=== PATIENT | female | born 1950 | race Caucasian/White ===

== ENCOUNTER 2023-09-14 10:12 | Observation (INO) ==
--- NOTE | 2023-09-11 09:29 | Anesthesiology Consultation ---
Date of Service September 11, 2023 Assessment & Plan Chart Review Chart Review: Acceptable Risk for Surgery and Patient NOT seen in Pre Admission Testing History Surgery Operation Date: 09/14/23 11:40 Proposed Procedures p Robotic Assisted Sacrocolpopexy - Tramaine Day MD Height/Weight Height: 5 ft 8.5 in Weight: 83.007 kg Allergies Allergy/AdvReac Type Severity Reaction Status Date / Time latex Allergy Mild itchy Verified 09/05/23 15:32 nickel Allergy Mild rash, skin Verified 09/05/23 15:32 irritation levofloxacin AdvReac Mild Nausea Verified 09/05/23 15:32 Medications Home Medications Medication Instructions Recorded Confirmed Last Taken albuterol sulfate 2.5 mg/3 mL 2.5 mg inhalation Q6H PRN 09/05/23 09/05/23 Unknown (0.083 %) solution for nebulization Shortness Of Breath albuterol sulfate 90 mcg/actuation 2 puff inhalation Q6H PRN 09/05/23 09/05/23 Unknown aerosol inhaler Shortness Of Breath ascorbic acid (vitamin C) 500 mg 500 mg PO QAM 09/05/23 09/05/23 Unknown tablet (Vitamin C) azelastine 137 mcg (0.1 %) nasal 1 spray intranasal QAM 09/05/23 09/05/23 Unknown spray aerosol calcium carbonate 500 mg-vitamin 1 tab PO QAM 09/05/23 09/05/23 Unknown D3 5 mcg (200 unit) tablet (Calcium 500 + D) calcium polycarbophil 625 mg tablet 625 mg PO QAM 09/05/23 09/05/23 Unknown cetirizine 10 mg tablet 10 mg PO QAM 09/05/23 09/05/23 Unknown cholecalciferol (vitamin D3) 25 25 mcg PO QAM 09/05/23 09/05/23 Unknown mcg (1,000 unit) tablet (Vitamin D3) coenzyme Q10 100 mg capsule 100 mg PO QAM 09/05/23 09/05/23 Unknown (CoQ-10) estradiol 0.01% (0.1 mg/gram) 1 appful vaginal 2XWK 09/05/23 09/05/23 Unknown vaginal cream famotidine 20 mg tablet 20 mg PO BID 09/05/23 09/05/23 Unknown fluticasone 500 mcg-salmeterol 50 1 inh inhalation BID 09/05/23 09/05/23 Unknown mcg/dose blistr powdr for inhalation (Advair Diskus) fluticasone propionate 50 1 spray intranasal QAM 09/05/23 09/05/23 Unknown mcg/actuation nasal spray,suspension magnesium 250 mg tablet 250 mg PO QPM 09/05/23 09/05/23 Unknown montelukast 10 mg tablet 10 mg PO HS 09/05/23 09/05/23 Unknown multivitamin 1 tab PO QAM 09/05/23 09/05/23 Unknown omeprazole 20 mg tablet,delayed 20 mg PO QAM 09/05/23 09/05/23 Unknown release vitamin B complex 1 tab PO QAM 09/05/23 09/05/23 Unknown Past Medical History Medical History GERD (gastroesophageal reflux disease) History of endometriosis History of esophageal dilatation History of anemia Sarcoidosis Asthma mild--inhaler daily and prn, very rarely uses nebulizer Past Family History Family History Other No family history of adverse response to anesthesia Past Surgical History Surgical History History of tonsillectomy and adenoidectomy History of benign breast biopsy bilateral History of dilatation and curettage multiple History of shoulder surgery right--fracture repair History of repair of left rotator cuff History of repair of right rotator cuff History of partial knee replacement x2--one on right and one on left History of hysterectomy History of bladder suspension procedure History of colonoscopy History of esophagogastroduodenoscopy (EGD) History of wisdom tooth extraction History of sinus surgery History of bronchoscopy biopsy for sarcodosis Social History Smoking Status: Never smoker Do You Dip or Chew Tobacco: No Hx Alcohol Use: Yes Alcohol type: wine alcohol intake frequency: holidays/special occasions only Hx Substance Use: No substance use type: does not use
--- NOTE | 2023-09-13 07:38 | History & Physical Report ---
Date of Service September 14, 2023 Assessment & Plan (1) Vaginal vault prolapse, posthysterectomy: Plan Cystocele, Vaginal Vault Prolapse Patient desires surgical correction with robotic sacral colpopexy.. She is not interested in pessary therapy. We discussed the risks of surgery including infection, bleeding, injury, pain, mesh exposure, urinary retention, urinary incontinence, recurrence, bowel obstruction, and laparotomy conversion. All questions answered. Informed consent signed. Admission and Anticipated Discharge Date Admission Date: 09/14/2023 Anticipated date of discharge: 09/15/23 History of Present Illness Chief Complaint: prolapse Primary Care Provider: NO PCP Marta Mixon is a 73 year old female with vaginal prolapse. Marta notes that she has been having worsening of her symptoms of prolapse for t he past two years with associated urge urinary incontinence. She most recently had a colpopexy in 2015, and was told at that time that she would likely need another surgery sometime in the future. She recently had a rotator cuff repair for which she started opioid pain medication, which she thinks caused worsening constipation. She has since discontinued the medication, but her constipation has remained. She also had an anal fissure 6 months ago, which caused some hematochezia, but she was seen by her doctor for this concern and it has since resolved. In the past, she has had three surgical interventions: Colpopexy, vaginal intraperitoneal approach, October 2015 Mesh Suspension, robot, 2008 Bladder Sling Suspension, 2004 Urinary: Leakage: UUI Has leakage every day Wears pads: yes She denies a sense of incomplete bladder emptying. Prior/current treatment include: 3 x surgical interventions UTI: She states she has had two urinary tract infections in the past year. Prior/ current treatment include: antibiotics Voiding detail: Daytime frequency: every 30-60 minutes Urgency present Nocturia:4-6 times per night Hesitancy no Straining no Hematuria no (other than on urinalysis while having UTI) Postvoid dribbling no Postvoid urgency no Manual reduction no Drinks: 1 cup of green tea, 1 cup of decaf coffee Prolapse: She admits a palpable bulge. Her bulge symptoms have worsened over the last year Prior/ current treatments include 3 x surgical interventions GI: Bowel habits: constipation She denies fecal incontinence. Prior/ current treatments include: tapering and discontinuation of opioid pain medication after rotator cuff repair Allergies Allergy/AdvReac Type Severity Reaction Status Date / Time latex Allergy Mild itchy Verified 09/05/23 15:32 nickel Allergy Mild rash, skin Verified 09/05/23 15:32 irritation levofloxacin AdvReac Mild Nausea Verified 09/05/23 15:32 Home Medications Medication Instructions Recorded Confirmed Type albuterol sulfate 2.5 mg/3 mL 2.5 mg inhalation Q6H PRN 09/05/23 09/05/23 Hi story (0.083 %) solution for nebulization Shortness Of Breath albuterol sulfate 90 mcg/actuation 2 puff inhalation Q6H PRN 09/05/23 09/05/23 History aerosol inhaler Shortness Of Breath ascorbic acid (vitamin C) 500 mg 500 mg PO QAM 09/05/23 09/05/23 History tablet (Vitamin C) azelastine 137 mcg (0.1 %) nasal 1 spray intranasal QAM 09/05/23 09/05/23 History spray aerosol calcium carbonate 500 mg-vitamin 1 tab PO QAM 09/05/23 09/05/23 History D3 5 mcg (200 unit) tablet (Calcium 500 + D) calcium polycarbophil 625 mg tablet 625 mg PO QAM 09/05/23 09/05/23 History cetirizine 10 mg tablet 10 mg PO QAM 09/05/23 09/05/23 History cholecalciferol (vitamin D3) 25 25 mcg PO QAM 09/05/23 09/05/23 History mcg (1,000 unit) tablet (Vitamin D3) coenzyme Q10 100 mg capsule 100 mg PO QAM 09/05/23 09/05/23 History (CoQ-10) estradiol 0.01% (0.1 mg/gram) 1 appful vaginal 2XWK 09/05/23 09/05/23 History vaginal cream famotidine 20 mg tablet 20 mg PO BID 09/05/23 09/05/23 History fluticasone 500 mcg-salmeterol 50 1 inh inhalation BID 09/05/23 09/05/23 History mcg/dose blistr powdr for inhalation (Advair Diskus) fluticasone propionate 50 1 spray intranasal QAM 09/05/23 09/05/23 History mcg/actuation nasal spray,suspension magnesium 250 mg tablet 250 mg PO QPM 09/05/23 09/05/23 History montelukast 10 mg tablet 10 mg PO HS 09/05/23 09/05/23 History multivitamin 1 tab PO QAM 09/05/23 09/05/23 History omeprazole 20 mg tablet,delayed 20 mg PO QAM 09/05/23 09/05/23 History release vitamin B complex 1 tab PO QAM 09/05/23 09/05/23 History Patient History Medical History GERD (gastroesophageal reflux disease) History of endometriosis History of esophageal dilatation History of anemia Sarcoidosis Asthma mild--inhaler daily and prn, very rarely uses nebulizer Surgical History History of tonsillectomy and adenoidectomy History of benign breast biopsy bilateral History of dilatation and curettage multiple History of shoulder surgery right--fracture repair History of repair of left rotator cuff History of repair of right rotator cuff History of partial knee replacement x2--one on right and one on left History of hysterectomy History of bladder suspension procedure History of colonoscopy History of esophagogastroduodenoscopy (EGD) History of wisdom tooth extraction History of sinus surgery History of bronchoscopy biopsy for sarcodosis Family History Other No family history of adverse response to anesthesia Social History Smoking Status: Never smoker Second Hand Exposure: No; Do You Dip or Chew Tobacco: No; Tobacco Cessation Education Requested by Patient: No Hx Alcohol Use: Yes Alcohol type: wine Hx Substance Use: No Preferred Language: [place] Communication Ability: Effective Machine 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 Required: No Beliefs That Will Affect Care: None Current Living Situation: Spouse Other Information That Helps Us Care for You: No Feels Safe at Home: Yes Safety Concerns: Feels Safe At This Time Assistive Devices: None OB History Weight of largest baby: 8 lbs 15 oz Vaginal deliveries: 2 C/S: 0 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[employer] History endometriosis, hysterectomy Review of Systems All systems reviewed & are unremarkable except as noted in HPI & below Physical Exam Constitutional: WD/WN, vitals as above Eyes: PERRL, conjunctivae normal, anicteric sclerae ENMT: external ear and nose normal, oropharynx normal Neck: trachea midline, no thyromegaly Respiratory: normal respiratory effort, lungs clear to auscultation Cardiovascular: RRR, no murmur, no edema Gastrointestinal (Abdomen): normal bowel sounds, soft, nontender, no hepatosplenomegaly Musculoskeletal: no cyanosis or clubbing, extremities motor strength 5/5 Skin: no rashes, warm and dry Neurologic: PERRL, EOMI, accommodation nl, no face palsy, no dysarthria Psychiatric: A+Ox3, euthymic affect
--- NOTE | 2023-09-14 09:45 | History & Physical Bridge Note ---
Date of Service September 14, 2023 History & Physical Bridge Note I have examined the patient, reviewed the History & Physical and in the interval since the performance of the History & Physical I have noted the following changes of clinical significance: no changes noted
[~2023-09-14 10:12] MED LIST: LR 15ML/HR IV SCH; cefOXitin 2,000 MG in DEXTROSE 5 % MINI-B 50 ML IV SCH
[2023-09-14] MEDS ORDERED: fentaNYL citrate PF 100 MCG/2 ML VIAL ONE ×2 (10:52→13:56)
[2023-09-14] MEDS ORDERED: DEXAMETHASONE SOD INJ 4 MG/ML VIAL ONE (10:52)
[2023-09-14] MEDS ORDERED: PROPOFOL IV EMULSION 10 MG/ML 20 ML VIAL IV ONE (10:52)
[2023-09-14] MEDS ORDERED: MIDAZOLAM HCL 1 MG/ML 2ML VIAL ONE (10:52)
[2023-09-14] MEDS ORDERED: ONDANSETRON INJ 2 MG/ML 2 ML VIAL ONE (10:52)
[2023-09-14] MEDS ORDERED: LIDOCAINE 2% 2 ML VIAL/AMP(20MG/ML) INFIL ONE (10:52)
[2023-09-14] MEDS ORDERED: ROCURONIUM BROMIDE 10 MG/ML 5 ML VIAL IV ONE ×6 (10:54→12:42)
[2023-09-14] MEDS ORDERED: NALOXONE HCL 0.4 MG/1 ML VIAL/CARP IV PRN (12:10)
[2023-09-14] MEDS ORDERED: PROMETHAZINE HCL 12.5 MG in SODIUM CHLORIDE 0.9% 50 ML IV PRN (12:10)
[2023-09-14] MEDS ORDERED: HYDROmorphone INJ 1 MG/ML SYRINGE IV PRN (12:10)
[2023-09-14] MEDS ORDERED: LABETALOL HCL IV 5 MG/ML 20ML IV PRN (12:10)
[2023-09-14] MEDS ORDERED: FLUMAZENIL 0.1 MG/1 ML 10 ML VIAL IV PRN (12:10)
[2023-09-14] MEDS ORDERED: ATROPINE SULFATE 0.1 MG/ML 10ML SYR IV PRN (12:10)
[2023-09-14] MEDS ORDERED: ONDANSETRON INJ 2 MG/ML 2 ML VIAL IV PRN ×2 (12:10→15:43)
[2023-09-14] MEDS ORDERED: ePHEDrine sulfate 50 MG/ML AMP IV PRN (12:10)
[2023-09-14] MEDS ORDERED: BUPIVACAINE 0.5 % 5 MG/1 ML MPF 30ML VIAL ONE (12:58)
--- OUTSIDE RECORDS SUMMARY | 2023-09-14 15:16 | External Medical Summary | Summary of Care ---
Author Name Unknown Organization [facility] Address [address] [place] [address] Phone [phone] Care Team Providers Care Wire Drawing Machine Tender Name Role Phone Devyn Balbuena MD Primary Care Provider [phone] Reason for Visit * Reason Comments Follow Up 1 year for full skin exam Encounter Details Date Type Department Care Team (Late st Contact Info) Description 09/04/2023 3:40 PM EST Office Visit Dermatology[address] [address] Jory Lamar, JOSSELYN-Radha [address] [place] [address] [place] Stewart [address] Multiple nevi*; Skin exam, screening for cancer; Lentigines; Seborrheic keratosis Allergies Active Allergy Reactions Criticality Noted Date Comments Levofloxacin Nausea/vomiting Medium 10/16/2018 Molds & Smuts Other (Please comment) Medium 01/23/2019 Congestion and sore throat Poison Collin Extract 05/16/2023 documented as of this encounter (statuses as of 09/05/2023) Medications Medication Sig Dispensed Refills Start Date End Date Status B COMPLEX 100 PO TABS one daily 0 Active MAGNESIUM 250 MG PO TABS one daily 0 Active VITAMIN D3 1000 UNITS PO CAPS one daily 0 Active CALCIUM 1000 + D 1000-800 MG-UNIT PO TABS one tablet daily 0 Active FIBER COMPLETE PO TABS Take by mouth 1 Tablet daily . 0 Active Coenzyme Q10 10 MG Capsule Take 1 Capsule by mouth in the morning. 0 Active Ascorbic Acid (VITAMIN C) 500 MG chewable tablet Take 1 Tablet by mouth in the morning. 0 Active Multivitamin Women 50+ Oral Tablet Take by mouth . 0 Acti ve Cetirizine HCl 10 MG Oral Capsule Take by mouth 1 Capsule in the morning. 90 Capsule 2 06/29/2022 Active Fluticasone Propionate 50 MCG/ACT Nasal Suspension (Flonase)Indications :Seasonal allergies SPRAY 2 SPRAYS INTO EACH NOSTRIL EVERY DAY 48 mL 3 09/30/2022 Active Azelastine HCl 137 MCG/SPRAY Nasal Solution USE 1 SPRAY IN EACH NOSTRIL TWICE A DAY 0 09/03/2022 Active Albuterol Sulfate (2.5 MG/3ML) 0.083% Inhalation Nebulization Solution (Proventil)Indicatio ns:Mild persistent asthma without complication Inhale 1 Vial via nebulizer every 4 hours as needed for Wheezing. 100 mL 3 01/11/2023 Active Famotidine 20 MG Oral Tablet (Pepcid) TAKE 1 TABLET BY MOUTH TWICE A DAY 180 Tablet 1 01/22/2023 Active Advair Diskus 500-50 MCG/ACT Inhalation Aerosol Powder Breath Activated (Fluticasone-Salmete rol)Indications:Mild persistent asthma without complication INHALE BY MOUTH 1 PUFF IN THE MORNING AND 1 PUFF BEFORE BEDTIME. 180 Each 3 01/22/2023 Active Montelukast Sodium 10 MG Oral Tablet (Singulair)Indicatio ns:Mild persistent asthma, uncomplicated,Allerg ic rhinitis due to pollen TAKE 1 TABLET BY MOUTH EVERY DAY 90 Tablet 3 02/22/2023 Active Albuterol Sulfate HFA 108 (90 Base) MCG/ACT Inhalation Aerosol SolutionIndications: Mild persistent asthma without complication Inhale 2 Puffs by mouth every 6 hours as needed (as needed). 18 g 3 04/30/2023 Active Estradiol 0.1 MG/GM Vaginal Cream (Estrace) Apply pea sized amount (0.5 gm) vaginally twice a week at bedtime 42.5 g 3 05/23/2023 Active Omeprazole 20 MG Oral Capsule Delayed Release (PriLOSEC)Indication s:Dysphagia, unspecified type Take 1 Capsule by mouth in the morning. 1 hour before the first meal of the day. 90 Capsule 3 08/02/2023 Active predniSONE 20 MG Oral Tablet (Deltasone) TAKE 1 TABLET 2x DAILY FOR 5 DAYS, THEN TAKE 1 TABLET 1x DAILY FOR 5 DAYS. 15 Tablet 0 08/23/2023 Active documented as of this encounter (statuses as of 09/05/2023) Active Problems Problem Noted Date Diagnosed Date Chronic left shoulder pain 05/31/2022 Postoperative anemia due to acute blood loss Status post total bilateral knee replacement Seasonal allergic rhinitis due to pollen 018 Mild persistent asthma without complication 03/18 Gastroesophageal reflux disease without esophagi tis 10/05/2016 Uterovaginal prolapse 10/18/2015 DDD (degenerative disc disease), cervical 2014 Hyperlipidemia Sarcoid DJD (degenerative joint disease) of knee documented as of this encounter (statuses as of 09/05/2023) Resolved Problems Problem Noted Date Diagnosed Date Resolved Date ADVANCE DIRECTIVE INFORMATION 12/13/2017 10/06/2019 Overview: Pt does have a living will Encounter for examination fo r normal comparison and control in clinical research program 09/14/2017 04/19/2020 Overview: DO NOT DELETE [facility] DETECT Study: Project # [id number], Machine Binder Stripper: Jorden Cleaning, PhD. SUMMARY: Goal: Establish test characteristics (sensitivity, specificity, PPV, NPV) of a circulating tumor DNA (ctDNA)-based test for cancer. Hypothesis: Circulating tumor DNA (ctDNA) and elevated protein biomarkers (together, the marker panel) can be detected in asymptomatic individuals with early cancer. Specific Aim 1: Determine the prevalence of a positive marker panel test in a prospective clinical cohort of 10,000 asymptomatic women ages 65 to 75 years. Specific Aim 2: Determine the sensitivity, specificity, positive predictive value (PPV) and negative predictive value (NPV) of a marker panel test to identify histologically proven cancers that develop within 5-years of the marker panel evaluation. CONTACTS: During normal business hours, contact study staff at ; after hours Machine Binder Stripper via the [facility] hospital press setup operator . Please contact study team before resolving/deleting from patients problem list. Study phone number: [phone]. Diagnosis changed due to Research Module. Go to Snapshot for study details. Encounter for examination fo r normal comparison and control in clinical research program 09/14/2017 05/18/2022 Overview: DO NOT DELETE - Erick CHRISTIANSON Study: Project # [id number], Machine Binder Stripper: Armando Woodard, MS, MPH. SUMMARY: Goal: Establish test characteristics (sensitivity, specificity, PPV, NPV) of a circulating tumor DNA (ctDNA)-based test for cancer. - Hypothesis: Circulating tumor DNA (ctDNA) and elevated protein biomarkers (together, the marker panel) can be detected in asymptomatic individuals with early cancer. - Specific Aim 1: Determine the prevalence of a positive marker panel test in a prospective clinical cohort of 10,000 asymptomatic women ages 65 to 75 years. - Specific Aim 2: Determine the sensitivity, specificity, positive predictive value (PPV) and negative predictive value (NPV) of a marker panel test to identify histologically proven cancers that develop within 5-years of the marker panel evaluation. - CONTACTS: During normal business hours, contact study staff at ; after hours Machine Binder Stripper via the [facility] hospital press setup operator . - Please contact study team before resolving/deleting from patients problem list. Study phone number: [phone]. Diagnosis changed due to Research Module. Go to Snapshot for study details. Hypertension 04/09/2017 Pneumonia 07/25/2017 Hay fever 08/10/2018 Hx of food allergy 8 Leukocytosis 08/10/2018 Overview: work up negative Urinary, incontinence, stress female 02/10/2015 Asthma, mild persistent 03/18 documented as of this encounter (statuses as of 09/05/2023) Immunizations Name Administration Dates Next Due COVID-19 mRNA, LNP-s, No Pre serve, 2-Dose Series (Moderna) 11/18/2020,10/23/2020 COVID-19, mRNA, LNP-s, PF, B ooster, 100mcg/0.5mg (Moderna) 02/09/2022,08/08/2021 Covid-19, Mrna, Lnp-s, Pf, B ivalent, 30 Mcg, IM, 12 yrs and above (Pfizer) 07/28/2022 Influenza, Whole Virus 06/17/2013,02/04/2013 Pneumococcal Conjugate Vacc, 13 Valent (Prevnar) 07/08/2015 Pneumococcal Polysaccharide PPV23 (Pneumovax) 05/16/2018,02/04/2013 Season Influenza, Quad, PF, Adjuvanted, 65+ Yrs, IM (FLUAD) 05/27/2020 Seasonal Influenza, PF, 6 M & above, IM , (FluLaval or Fluzone) 06/17/2018,06/18/2017 Seasonal Influenza, Quadriva lent Hd (Fluzone Hd) 06/06/2023,07/10/2022,05/30/2021 Seasonal Influenza, Quadriva lent, No Preserve, IM 07/03/2015 Seasonal Influenza, Split, I IV3, With Preserve, Inj 07/01/2016,06/20/2014,06/17/2013 Seasonal Influenza, Trivalen t, Adjuvanted, 65+ yrs 05/22/2019 TDAP (age 10 and older)(Boostrix) 2020,02/20/2020(Deferred: Patient Refused) TDAP (age 11 and older)(Adacel) 04/04/2012 Varicella Zoster Vaccine (Adult) 04/24/2014 Zoster Vaccine Recombinant (Shingrix) 11/29/2019 ,2019 documented as of this encounter Social History Tobacco Use Types Packs/Day Years Used Date Smoking Tobacco: Never Smokeless Tobacco: Never Alcohol Use Standard Drinks/Week Comments Not Currently 0 (1 standard drink = 0.6 oz pur e alcohol) wine occ PHQ-2 Answer Date Recorded PHQ Adult Total Score 0 03/27/2022 Hunger Vital Sign Answer Date Recorded Within the past 12 months, y ou worried that your food would run out before you got the money to buy more. Never true 08/15/20 23 Within the past 12 months, t he food you bought just didn't last and you didn't have money to get more. Never true 08/15/2023 Sex and Gender Information Value Date Recorded Sex Assigned at Female 12/26/2018 11:49 AM EDT Gender Identity Female 12/26/2018 11:49 AM EDT Sexual Orientation Straight 03/27/2022 11 :19 AM EDT Job Start Date Occupation Industry Not on file Not on file Not on file documented as of this encounter Functional Status Functional Status Response Date of Assess ment Are you deaf or do you have serious difficulty hearing? No 03/03/2020 Are you blind or do you have serious difficulty seeing, even when wearing glasses? No 03/03/20 Do you have serious difficul ty walking or climbing stairs? (5 years old or older) Yes-prior to surgery 03/03/2020 Do you have difficulty dress ing or bathing? (5 years old or older) No 03/03/2020 Because of a physical, menta l, or emotional condition, do you have difficulty doing errands alone such as visiting a doctor s office or shopping? (15 years old or older) No 03/03/20 20 Cognitive Status Response Date of Assessm ent Because of a physical, menta l, or emotional condition, do you have serious difficulty concentrating, remembering, or making decisions? (5 years old or older) No 03/03/2020 documented as of this encounter Patient Instructions * Patient Instructions* Jory Lamar PA-C - 09/04/2023 4:04 PM EST SUNSCREEN USE AND SUN PROTECTION: 1. The best protection is sun avoidance. Seek shade if you can, especially between 10am to 4pm (peak sun hours). 2. Use sunscreen with an SPF (Sun Protection Factor - the number on most sunscreen bottles) of 30 or more that protects from Ultraviolet A (UVA) and Ultraviolet B (UVB) wavelength light (strongly recommend SPF 50). This is referred to as broad spectrum sun protection because it protects from most wa velengths in both spectrums of UVA and UVB light. Unfortunately, even though the protection is broad it is not complete, therefore making sun avoidance the best protection. UVB and UVA have both beenimplicated in causing skin cancers. Older sunscreens only protected from UVB and sunscreens with added UVA protection should contain Titanium dioxide, Zinc oxide, or Avobenzone. Other oil free, non-comedogenic lotion with SPF 30 or greater is fine. 3. Use sun protection if outside for 15 minutes or more. Apply 20-30 minutes before going out and reapply every 1-2 hours. No sunscreen is truly water ''proof'' and it will wash away with sweat, swimming and rubbing. 4. Wear tightly woven, loose fitting (cooler) long sleeved clothing, UV-blocking sun glasses (eyes need protection as well) and wide-brimmed hatwear (no straw hats with holes because light still getsthrough). Strongly recommended *Neutrogena Pure and Free Baby SPF 60 (have separate face and body lotions) orCeraVe AM facial lotion (with SPF 30). If looking for non toxic alternatives-look for non-kira particle zinc. Product examples; Think sport, Think baby, Juliette, Babo botanicals, [employer], [place] baby. "Baby" products can be used for all ages. documented in this encounter Progress Notes * Scott Flores MD - 09/05/2023 9:02 AM EST I have seen and examined the patient via teledermatology review of chart note and photos with Jory Lamar PA-C. I have reviewed and agree with the assessment and plan. * Jory Lamar PA-C - 09/04/2023 3:40 PM EST SUBJECTIVE: History of Present Illness: Marta Mixon is a 72 year old female seen today for follow up of full skin exam. Last Office/Telemedicine Visit: 08/17/2022 Last attempted treatments include: seen by David Sinclair PA-C for rash/lesion Upcoming vulvar exams performed, no vulvar discoloration and/or lesions to be assessed per pt. No new or changing lesions, per pt. REVIEW OF SYSTEMS: SKIN: No other new or changing moles. HEME/LYMPH: No new or enlarging lumps or bumps. CONSTITUTIONAL: No nausea, vomiting, fevers, chills, diarrhea. No recent unintended weight loss, night sweats, appetite or malaise. RESP: negative MSK/EXT: Negative or as per HPI GI: negative CV: Negative or as per HPI Rest of systems are negative or as per HPI SKIN CANCER HX: NONE Reviewed all [facility] pathology reports and clinic notes as well as those sent by referring provider prior to seeing pt. MEDICA TIONS: Current Outpatient Medications Medication Sig Dispense Refill B COMPLEX 100 PO TABS one daily MAGNESIUM 250 MG PO TABS one daily VITAMIN D3 1000 UNITS PO CAPS one daily CALCIUM 1000 + D 1000-800 MG-UNIT PO TABS one tablet daily FIBER COMPLETE PO TABS Take by mouth 1 Tablet daily . Coenzyme Q10 10 MG Capsule Take 1 Capsule by mouth in the morning. Ascorbic Acid (VITAMIN C) 500 MG chewable tablet Take 1 Tablet by mouth in the morning. Multivitamin Women 50+ Oral Tablet Take by mouth . Cetirizine HCl 10 MG Oral Capsule Take by mouth 1 Capsule in the morning. 90 Capsule 2 Fluticasone Propionate 50 MCG/ACT Nasal Suspension (Flonase) SPRAY 2 SPRAYS INTO EACH NOSTRIL EVERYDAY 48 mL 3 Azelastine HCl 137 MCG/SPRAY Nasal Solution USE 1 SPRAY IN EACH NOSTRIL TWICE A DAY Albuterol Sulfate (2.5 MG/3ML) 0.083% Inhalation Nebulization Solution (Proventil) Inhale 1 Vial via nebulizer every 4 hours as needed for Wheezing. 100 mL 3 Famotidine 20 MG Oral Tablet (Pepcid) TAKE 1 TABLET BY MOUTH TWICE A DAY 180 Tablet 1 Advair Diskus 500-50 MCG/ACT Inhalation Aerosol Powder Breath Activated (Fluticasone-Salmeterol) INHALE BY MOUTH 1 PUFF IN THE MORNING AND 1 PUFF BEFORE BEDTIME. 180 Each 3 Montelukast Sodium 10 MG Oral Tablet (Singulair) TAKE 1 TABLET BY MOUTH EVERY DAY 90 Tablet 3 Albuterol Sulfate HFA 108 (90 Base) MCG/ACT Inhalation Aerosol Solution Inhale 2 Puffs by mouth every 6 hours as needed (as needed). 18 g 3 Estradiol 0.1 MG/GM Vaginal Cream (Estrace) Apply pea sized amount (0.5 gm) vaginally twice a week at bedtime 42.5 g 3 Omeprazole 20 MG Oral Capsule Delayed Release (PriLOSEC) Take 1 Capsule by mouth in the morning. 1 hour before the first meal of the day. 90 Capsule 3 predniSONE 20 MG Oral Tablet (Deltasone) TAKE 1 TABLET 2x DAILY FOR 5 DAYS, THEN TAKE 1 TABLET 1x DAILY FOR 5 DAYS. 15 Tablet 0 No current facility-administered medications for this visit. ALLERG IES: Levofloxacin, Molds & smuts, and Poison collin extract OBJECT ERICA: GEN: alert, no distress, appears oriented, elderly, increased BMI, pleasant and cooperative. SKIN: Detailed exam of hair, face including lids and lips, neck, chest, abdomen, back, bilateral upper ext. (arm, hand, fingers), bilateral lower ext. (leg, foot, toes), palpation of scalp, fingernails, toenails, inguinal areas, groin (mons pubis), buttocks and anus completed: Trunk/bilat arms and legs- About 20 total; 2-3mm light brown homogenous macules. 2. Trunk-Few 4-6mm thinned sharply defined, light brown, waxy flat papules with velvety to finely verrucous surfaces. 3. Face/upper trunk/dorsal hands-Some 3-5mm well defined light to medium brown homogenous stellate macules. ASSESS MENT/PLAN: 1. Nevi on trunk/bilat arms and legs-no tx needed, pt given reassurance and written education aboutdiagnosis. Skin cancer brochure given at previous office visit (pt declined need for another) and ABCDE's discussed with patient. Annual full body skin examination (unless I recommended otherwise), self-examination, and sun protection (SPF 30+ daily to sun exposed areas, with reapplication every 1-2 hours when out in sun for long periods of time) advised and discussed. Recommended sooner follow up for new or changing lesions. These changes include rapid enlargement, changes in color or shape or symptoms, bleeding, or other concerns. The common features and behavior of non-melanoma skin cancers (e.g. BCC/SCC) as well as the ABCDEs and ugly duckling features of melanoma were also reviewed. 2. Seborrheic keratoses on trunk-no tx needed, pt given reassurance. 3. Lentigines on face/upper trunk/arms/dorsal hands-no tx needed, pt given reassurance. Patient with daughter today. Photo(s) of #1-3 taken, pt verbally consented to having photo(s) taken. Follow-up: 1 year for full skin exam Applicable photos (if any) and chart reviewed by Dr. Scott Flores. Presumed diagnoses, expected natural histories, and management options discussed with the patient at length. Questions were addressed and anticipatory guidance provided. They were instructed to contact me if additional questions, concerns, or problems develop in the interim. -There were no barriers to learning and no other pain was related to today's visit. The patient and/or person accompanying patient demonstrates understanding of the visit and treatment. Jory Lamar PA-C 09/04/2023 4:[address] [address] documented in this encounter Nursing Notes * Marta Du LPN - 09/04/2023 4:07 PM EST Patient identified by full name and date of . Chief Complaint Patient presents with Follow Up 1 year for full skin exam documented in this encounter Plan of Treatment Upcoming Encounters Date Type Department Care Team (Late st Contact Info) Description 10/01/2023 11:40 AM EST Telemedicine Urogynecology [facility] [address] [facility] [place] [address] Tramaine Day MD [address] [place] [address] 10/22/2023 3:40 PM EST Office Visit [address] [phone] Devyn Balbuena MD [address] [place] [id number] 10/24/2023 3:30 PM EST Office Visit Urogynecology [facility] [address] [facility] [facility] [place] [address] Tramaine Day MD [address] [place] [address] 02/14/2024 8:20 AM EDT Office Visit Family [facility] [address] [place] [phone] Shanta Moore PA-C [address] [facility] [place] [address] 10/23/2024 3:40 PM EST Office Visit [address] [address] Jory Lamar PA-C [address] [place] [address] [place] [address] Scheduled Procedures Name Priority Associated Diagnoses Date/Ti me COLONOSCOPY FLEXIBLE PROXIMAL DIAGNOSTIC Recall History of colon polyps Health Maintenance Due Date Last Done Comments Depression Screening 03/27/2023 03/27/2022 Mammogram 10/02/2023 10/02/2022, 10/2020, 04/15/2020, Additional history exists DXA Scan 10/24/2023 10/24/2016 COLONOSCOPY-EVERY 3 YRS AGES 18-100 10/27/2025 10/27/2022, 10/27/2022, 01/27/2019, Additional history exists Lipid Panel 05/16/2028 05/16/2023, 10/19, 12/07/2020, Additional history exists DTaP,Tdap,and Td Vaccines (3 - Td or Tdap) 09/08/2031 09/08/2021, 04/04/2012 Hepatitis C Screening Completed 01/03/2017 Pneumococcal Vaccine: 65+ Years Completed 05/16/2018, 07/08/2015, 02/04/2013 Zoster Vaccines Completed 11/29/2019, 05/20, 04/24/2014 Influenza Vaccine (FLU shot) Completed , 07/10/2022, 05/30/2021, Additional history exists COVID-19 Vaccine Completed 06/20/2023, 07/2022, 02/09/2022, Additional history exists GARDASIL-HPV IMMUNIZATION SERIES Aged Out No longer eligible based on patient's age to complete this topic Hepatitis B Aged Out No longer eligi ble based on patient's age to complete this topic MENINGOCOCCAL (MENACTRA/MENVEO) Aged Out No longer eligible based on patient's age to complete this topic documented as of this encounter Medical Devices Implanted Type Area Customer Experience Specialist Device Identifier Shelf Expiration Date Model / Serial / Lot Restoris Mck Fermoral Sz 5 Mm - [id number] Implanted:Qty: 1 on 03/03/2020 by Juan Hurtado MD at OR [facility] Left: Knee EL : [employer]TH[employer] 07/23/2024 [id number] / / [id number] System Implant [employer] - [id number] Implanted:Qty: 1 on 08/07/2022 by Darwin Colon MD at OR [facility] Left: Shoulder [employer] 09/16/2025 [id number] / / [id number] documented as of this encounter Procedures Procedure Name Priority Date/Time Associated Diagnosis Comments DERM IMAGE (SITE) Routine 09/04/2023 Multiple nevi Skin exam, screening for cancer Lentigines Seborrheic keratosis documented in this encounter Results * DERM IMAGE (SITE) (09/04/2023) 09/04/2023 Jory Lamar PA-C DIGITAL PHOTOG TAMAR documented in this encounter Visit Diagnoses Diagnosis Multiple nevi- Primary Benign neoplasm of skin, site unspecified Skin exam, screening for cancer Screening for malignant neoplasm of the skin Lentigines Other dyschromia Seborrheic keratosis Other seborrheic keratosis documented in this encounter Advance Directives Latest Code Status on File Code Status Date Activated Date Inactivated Comments Full Code 08/07/2022 11:11 AM 08/07/2022 6:29 PM Th is order reflects the patients wishes and were consensually agreed upon. Question Answer Comments Discussion of Advance Directives occurred with: Patient Code Status History Code Status Date Activated Date Inactivated Comments Full Code 03/03/2020 6:06 PM 03/05/2020 5:16 PM This order reflects the patients wishes and were consensually agreed upon. Question Answer Comments Discussion of Advance Directives occurred with: Patient Does the patient have a Living Will? No Does the patient have Health Care Power of Teradata Architect? No Full Code 03/03/2020 2:52 PM 03/03/2020 6:05 PM This order reflects the patients wishes and were consensually agreed upon. Full Code 03/03/2019 12:22 PM 03/03/2019 6:17 PM This order reflects the patients wishes and were consensually agreed upon. Full Code 10/18/2015 5:02 PM 10/19/2015 3:22 PM This or terence reflects the patients wishes and were consensually agreed upon. Healthcare Agents on File Name Relationship Healthcare Agent Relationship Communication Luis Armando Mixon Jr. Spouse Emergency Contact [email or web address] Care Teams Wire Drawing Machine Tender Relationship Specialty Start Date End Date Devyn Balbuena MD [address] [place] [id number] PCP - General Family Medicine 08/11/22 documented as of this encounter
--- OUTSIDE RECORDS SUMMARY | 2023-09-14 15:16 | External Medical Summary | Summary of Care ---
Author Name Unknown Organization [facility] Address [address] [place] [address] Phone [phone] Prov[address] Care [address] Worker Name Role Phone Devyn Balbuena MD Primary Care Provider [phone] Reason for Visit * Reason Onset Date Comments Advice 08/27/2023 LMOM 08/28, 08/17 03/09 Encounter Details Date Type Department Care Team ([facility] Contact Info) Description 08/27/2023 Telephone Family [address] [phone] Devyn Balbuena MD [address] [place] [address] Advice (LMOM 08/28, 09/01/23) Allergies Active Allergy Reactions Criticality Noted Date Comments Levofloxacin Nausea/vomiting Medium 10/16/2018 Molds & Smuts Other (Please comment) Medium 01/23/2019 Congestion and sore throat Poison Germania Extract 05/16/2023 documented as of this encounter (statuses as of 09/07/2023) Medications Medication Sig Dispensed Refills Start Date [...] as of this encounter (statuses as of 09/07/2023) Active Problems Problem Noted Date Diagnosed Date [...] as of this encounter (statuses as of 09/07/2023) Resolved Problems Problem Noted Date Diagnosed Date Resolved Date ADVANCE DIRECTIVE INFORMATION 12/13/2017 10/06/2019 Overview: Pt does have a living will Encounter for examination fo r normal comparison and control in clinical research program 09/14/2017 04/19/2020 Overview: DO NOT DELETE [facility] DETECT Study: Project # [id number], Quality Engineer Medical Device: Jorden Cleaning, PhD. SUMMARY: Goal: Establish test [...] contact study staff at ; after hours Quality Engineer Medical Device via the [facility] pelletizer operator . Please contact study team before resolving/deleting from patients problem list. Study phone number: [phone]. Diagnosis changed due to Research Module. Go to Snapshot for study details. Encounter for examination fo r normal comparison and control in clinical research program 09/14/2017 05/18/2022 Overview: DO NOT DELETE - [facility] Study: Project # [id number], Quality Engineer Medical Device: Armando Woodard, MS, MPH. SUMMARY: Goal: Establish [...] contact study staff at ; after hours Quality Engineer Medical Device via the [facility] hospital pelletizer operator . - Please contact study team before resolving/deleting from patients problem list. Study phone number: [phone]. Diagnosis changed due to Research Module. Go to Snapshot for study details. Hypertension 04/09/2017 Pneumonia 07/25/2017 Hay fever 08/10/2018 Hx of food allergy 8 Leukocytosis 08/10/2018 Overview: work up negative Urinary, incontinence, stress female 02/10/2015 Asthma, mild persistent 03/18 documented as of this encounter (statuses as of 09/07/2023) Immunizations Name Administration Dates Next Due COVID-19 mRNA, LNP-s, No Pre serve, 2-Dose Series (Moderna) 11/18/2020,10/23/2020 COVID-19, mRNA, LNP-s, PF, B ooster, 100mcg/0.5mg (Moderna) 02/09/2022,08/08/2021 Covid-19, Mrna, Lnp-s, Pf, B ivalent, 30 Mcg, IM, 12 yrs and above ([email or web address]) 07/28/2022 Influenza, Whole Virus 06/17/2013,02/04/2013 Pneumococcal Conjugate [...] No 03/03/2020 documented as of this encounter Miscellaneous Notes * Telephone Encounter - Julianna Estrada LPN - 09/01/2023 1:57 PM EST Attempted to reach patient. No answer. Left voicemail for her to return call so we can make her aware of appointment needed unless she is no longer having this issue. * Telephone Encounter - Mely Santos LPN - 08/28/2023 10:14 AM EST I tried to call patient but no one answered so I LMOM for patient to call the office in regards to her concerns. If patient calls back please relay Shanta's advice below. Thank you. * Telephone Encounter - Shanta Moore PA-C - 08/27/2023 1:40 PM EST Patient should be evaluated for these concerns. Shanta Moore PA-C 08/27/2023 1:40 PM * Telephone Encounter - Patricia Agrawal LPN - 08/27/2023 1:09 PM EST Pt aware. She also called it with c/o yeast infection. Requesting meds. Did not want to schedule anappt at this time. * Telephone Encounter - Shanta Moore PA-C - 08/27/2023 12:40 PM EST Patient should not take NSAIDs (ibuprofen) with prednisone. Acetaminophen could be used as needed for pain. Also, given fall, patient should be evaluated if she has any pain or concerns. Shanta Moore PA-C 08/27/2023 12:41 PM * Telephone Encounter - Jovita Shaw LPN - 08/27/2023 12:06 PM EST Okay for patient to take together? * Telephone Encounter - Jose Luis Toro OSA - 08/27/2023 11:27 AM EST Pt is on prednisone for sinuses. Pt fell yesterday and would like to know if she can take ibuprofenfor the pain since she is on prednisone. Please advise pt at [phone]. documented in this encounter Plan of Treatment Upcoming Encounters Date Type Department Care Team (Late st Contact Info) Description 10/01/2023 11:40 AM EST Telemedicine Urogy[facility]cology [facility] [address] [place] [address] Tramaine Day MD [address] [place] [address] 10/22/2023 3:40 PM EST Office Visit [facility] [address] [place] [phone] Devyn Balbuena MD [address] [place] [address] 10/24/2023 3:30 PM EST Office Visit [facility] [address] [place] [address] Tramaine Day MD [address] [place] [address] 02/14/2024 8:20 AM EDT Office Visit [facility] [address] [place] [phone] Shanta Moore PA-C [address] [place] [address] [phone] 10/23/2024 3:40 PM EST Office Visit [address] [address] Jory Lamar PA-C [address] [place] [address] [place] [address] Scheduled Procedures Name Priority Associated Diagnoses Date/Ti [...] this encounter Medical Devices Implanted Type Area Power Crane Operator Device Identifier Shelf Expiration Date Model / Serial / Lot Restoris Mck Fermoral Sz 5 Mm - [id number] Implanted:Qty: 1 on 03/03/2020 by Juan Hurtado MD at OR [facility] Left: Knee EL : ORTHOPAEDICS 07/23/2024 [id number] / / [id number]-1 System Implant Speedbridge - [id number] Implanted:Qty: 1 on 08/07/2022 by Darwin Colon MD at [facility] Left: Shoulder [employer] 09/16/2025 AR-2600SB S-4 / / [id number] documented as of this encounter Advance Directives Latest Code Status [...] the patient have Health Care Power of Ghost Writer? No Full Code 03/03/2020 2:52 PM 03/03/2020 [...] Luis Armando Mixon Jr. Spouse Emergency Contact [email or web address] [email or web address] Care Teams Drive Worker Relationship Specialty Start Date End Date Devyn Balbuena MD [address] [place] [address] [phone] PCP - General Family Medicine 08/11/22 documented as of this encounter
--- OUTSIDE RECORDS SUMMARY | 2023-09-14 15:16 | External Medical Summary | Summary of Care ---
Author Name Unknown Organization [facility] Address [address] [place] [address] Phone [phone] Care Team Providers Care Hematology Technician Name Role Phone Devyn Balbuena MD Primary Care Provider [phone] Reason for Visit * Reason Onset Date Comments Pre Cert/Prior Auth 07/19/2023 Encounter Details Date Type Department Care Team (Late st Contact Info) Description 07/19/2023 Telephone [facility] [address] [place] [address] Andres Lemos, [address] [place], [place] [phone] Pre Cert/Prior Auth Allergies Active Allergy Reactions Criticality Noted Date Comments Levofloxacin Nausea/vomiting Medium 10/16/2018 Molds & Smuts Other (Please comment) Medium 01/23/2019 Congestion and sore throat Poison Germania Extract 05/16/2023 documented as of this encounter (statuses as of 09/12/2023) Medications Medication Sig Dispensed Refills Start Date [...] at bedtime 42.5 g 3 05/23/2023 Active documented as of this encounter (statuses as of 09/12/2023) Active Problems Problem Noted Date Diagnosed Date [...] as of this encounter (statuses as of 09/12/2023) Resolved Problems Problem Noted Date Diagnosed Date Resolved Date ADVANCE DIRECTIVE INFORMATION 12/13/2017 10/06/2019 Overview: Pt does have a living will Encounter for examination fo r normal comparison and control in clinical research program 09/14/2017 04/19/2020 Overview: DO NOT DELETE [facility] DETECT Study: Project # [id number], Vehicle Monitor Technician: Jorden Cleaning, PhD. SUMMARY: Goal: Establish test [...] contact study staff at ; after hours Vehicle Monitor Technician via the [facility] hospital candy rolling machine operator . Please contact study team before resolving/deleting from patients problem list. Study phone number: [phone]. Diagnosis changed due to Research Module. Go to Snapshot for study details. Encounter for examination fo r normal comparison and control in clinical research program 09/14/2017 05/18/2022 Overview: DO NOT DELETE - [facility] DETECT Study: Project # [id number], Vehicle Monitor Technician: Armando Woodard, MS, MPH. SUMMARY: Goal: Establish [...] contact study staff at ; after hours Vehicle Monitor Technician via the [facility] hospital candy rolling machine operator . - Please contact study team before resolving/deleting from patients problem list. Study phone number: [phone]. Diagnosis changed due to Research Module. Go to Snapshot for study details. Hypertension 04/09/2017 Pneumonia 07/25/2017 Hay fever 08/10/2018 Hx of food allergy 8 Leukocytosis 08/10/2018 Overview: work up negative Urinary, incontinence, stress female 02/10/2015 Asthma, mild persistent 03/18 documented as of this encounter (statuses as of 09/12/2023) Immunizations Name Administration Dates Next Due COVID-19 [...] encounter Miscellaneous Notes * Telephone Encounter - Chichi Howard OSA - 09/12/2023 3:24 PM EST Check [facility] website and found approval for eye procedure. Please see scanned documents. ALIREZA Ferrell 09/12/2023 3:37 PM * Telephone Encounter - Chichi Howard OSA - 07/19/2023 10:52 AM EDT Submitted clinic notes, photos, HVF to insurance company via electronic. ALIREZA Ferrell 07/19/2023 10:52 AM documented in this encounter Plan of Treatment Upcoming Encounters Date Type Department Care Team (Late st Contact Info) Description 10/01/2023 11:40 AM EST Telemedicine Urogynecology [facility] [address] [facility] [place] [address] Tramaine Day MD 132 [facility] [place] [address] 10/22/2023 3:40 PM EST Office Visit [address] [phone] Devyn Balbuena MD [address] [place] [address] 10/24/2023 3:30 PM EST Office Visit [facility] [place] [address] Tramaine Day MD [address] [place] [address] 02/14/2024 8:20 AM EDT Office Visit Family [facility] 68 [facility] [place] [phone] Shanta Moore PA-C [address] [place] [address] 10/23/2024 3:40 PM EST Office Visit [address] [place] [address] Jory Lamar PA-C [address] [place] [address] [place] [address] Scheduled Procedures Name Priority Associated Diagnoses Date/Ti [...] this encounter Medical Devices Implanted Type Area Ribbon Sweatband Operator Device Identifier Shelf Expiration Date Model / Serial / Lot Restoris Mck Fermoral Sz 5 Mm - [id number] Implanted:Qty: 1 on 03/03/2020 by Juan Hurtado MD at OR [facility] Left: Knee EL : ORTHOPAEDICS 07/23/2024 [id number] / / [id number]-1 System Implant Speedbridge - [id number] Implanted:Qty: 1 on 08/07/2022 by Darwin Colon MD at OR [facility] Left: Shoulder [employer] 09/16/2025 AR-2600SB S-4 / / [id number] documented as of this encounter Advance Directives [...] the patient have Health Care Power of Gleason Operator? No Full Code 03/03/2020 2:52 PM 03/03/2020 [...] Luis Armando Mixon Jr. Spouse Emergency Contact [email or web address] Care Teams Hematology Technician Relationship Specialty Start Date End Date Devyn Balbuena MD [address] [place] [address] PCP - General Family Medicine 08/11/22 documented as of this encounter
--- OUTSIDE RECORDS SUMMARY | 2023-09-14 15:16 | External Medical Summary | Summary of Care ---
Author Name Unknown Organization [facility] Address [address] [place] [address] Phone [phone] Care Team Providers Care Health Technical Writer Name Role Phone Devyn Balbuena MD Primary Care Provider [phone] Encounter Details Date Type Department Care Team (Latest Contact Info) Description 09/04/2023 1:27 PM EST - 09/04/2023 11:59 PM EST Hospital Encounter Cardiac Studies [facility], [facility] [address] [place] [address] Gjsh, Forging Press Operator [address] [place] [address] Discharge Disposition: Home - Self Care Allergies Active Allergy Reactions Criticality Noted Date [...] [facility] DETECT Study: Project # [id number], Valuation Manager: Jorden Cleaning, PhD. SUMMARY: Goal: Establish test [...] contact study staff at ; after hours Valuation Manager via the [place] mash tub cooker operator . Please contact study team before resolving/deleting from patients problem list. Study phone number: [phone]. Diagnosis changed due to Research Module. Go to Snapshot for study details. Encounter for examination fo r normal comparison and control in clinical research program 09/14/2017 05/18/2022 Overview: DO NOT DELETE - [facility] DETECT Study: Project # [id number], Valuation Manager: Armando Woodard, MS, MPH. SUMMARY: Goal: Establish [...] contact study staff at ; after hours Valuation Manager via the [facility] hospital mash tub cooker operator . - Please contact study team before resolving/deleting from patients problem list. Study phone number: [phone]. Diagnosis changed due to Research Module. Go [...] No 03/03/2020 documented as of this encounter Plan of Treatment Upcoming Encounters Date Type Department Care Team (Late st Contact Info) Description 10/01/2023 11:40 AM EST Telemedicine Urogynecology [facility] [address] [place] [address] Tramaine Day MD [address] [place] [address] 10/22/2023 3:40 PM EST Office Visit [address] [phone] Devyn Balbuena MD [address] [place] [address] 10/24/2023 3:30 PM EST Office Visit Urogynecology [facility] [address] [place] [address] Tramaine Day MD [address] [place] [address] 02/14/2024 8:20 AM EDT Office Visit [facility] [address] [place] [phone] Shanta Moore PA-C [address] [place] [phone] 10/23/2024 3:40 PM EST Office Visit [place] [address] [address] [facility] [place] [phone] Jory Lamar PA-C [address] [place] [address] [place] [address] Scheduled Procedures Name Priority Associated Diagnoses Date/Ti [...] this encounter Medical Devices Implanted Type Area Manager Heart Device Identifier Shelf Expiration Date Model / Serial / Lot Restoris Mck Fermoral Sz 5 Mm - [id number] Implanted:Qty: 1 on 03/03/2020 by Juan Hurtado MD at OR [facility] Left: Knee EL : ORTHOPAEDICS 07/23/2024 [id number] / / 1M1R-1 System Implant Speedbridge - [id number] Implanted:Qty: 1 on 08/07/2022 by Darwin Colon MD at OR [facility] Left: Shoulder [employer] 09/16/2025 AR-2600SB S-4 / / [id number] documented as of this encounter Visit Diagnoses Diagnosis Vaginal vault prolapse, 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 No Full Code 03/03/2020 2:52 PM 03/03/2020 [...] Relationship Healthcare Agent Relationship Communication Luis Armando Sevillabernard Vasquez. Spouse Emergency Contact [email or web address] Care Teams Health Technical Writer Relationship Specialty Start Date End Date Devyn Balbuena MD [address] [place] [address] PCP - General Family Medicine 08/11/22 documented as of this encounter
--- OUTSIDE RECORDS SUMMARY | 2023-09-14 15:16 | External Medical Summary | Summary of Care ---
Author Name Unknown Organization [facility] Address [address] [place] [address] Phone [phone] Care Team Providers Care Card Player Name Role Phone Devyn Balbuena MD Primary Care Provider [phone] Reason for Visit * Reason Comments Outpatient Testing Encounter Details Date Type Department Care Team (Late st Contact Info) Description 09/04/2023 1:50 PM EST Laboratory Laboratory, [place] [address] [place] [address] Gj, Lab [facility] [place] [address] Current use of proton pump inhibitor Allergies Active Allergy Reactions Criticality Noted Date Comments Levofloxacin Nausea/vomiting Medium 10/16/2018 Molds & Smuts Other (Please comment) Medium 01/23/2019 Congestion and sore throat Poison Germania Extract 05/16/2023 documented as of this encounter (statuses as of 09/04/2023) Medications Medication Sig Dispensed Refills Start Date [...] as of this encounter (statuses as of 09/04/2023) Active Problems Problem Noted Date Diagnosed Date [...] as of this encounter (statuses as of 09/04/2023) Resolved Problems Problem Noted Date Diagnosed Date Resolved Date ADVANCE DIRECTIVE INFORMATION 12/13/2017 10/06/2019 Overview: Pt does have a living will Encounter for examination fo r normal comparison and control in clinical research program 09/14/2017 04/19/2020 Overview: DO NOT DELETE [facility] DETECT Study: Project # [id number], Occupational Safety Specialist: Jorden Cleaning, PhD. SUMMARY: Goal: Establish test [...] contact study staff at ; after hours Occupational Safety Specialist via the [facility] videotape operator . Please contact study team before resolving/deleting from patients problem list. Study phone number: [phone]. Diagnosis changed due to Research Module. Go to Snapshot for study details. Encounter for examination fo r normal comparison and control in clinical research program 09/14/2017 05/18/2022 Overview: DO NOT DELETE - [facility] DETECT Study: Project # [id number], Occupational Safety Specialist: Armando Woodard, MS, MPH. SUMMARY: Goal: Establish [...] contact study staff at ; after hours Occupational Safety Specialist via the [facility] hospital videotape operator . - Please contact study team before resolving/deleting from patients problem list. Study phone number: [phone]. Diagnosis changed due to Research Module. Go to Snapshot for study details. Hypertension 04/09/2017 Pneumonia 07/25/2017 Hay fever 08/10/2018 Hx of food allergy 8 Leukocytosis 08/10/2018 Overview: work up negative Urinary, incontinence, stress female 02/10/2015 Asthma, mild persistent 03/18 documented as of this encounter (statuses as of 09/04/2023) Immunizations Name Administration Dates Next Due COVID-19 [...] seeing, even when wearing glasses? No 03/03/20 20 Do you have serious difficul ty walking [...] Description 09/04/2023 3:40 PM EST Office Visit [address] [address] Jory Lamar PA-C [address] [place] [address] [place] [address] 10/01/2023 11:40 AM EST Telemedicine Urogynecology [facility] 132 [facility] [place] [address] Tramaine Day MD [address] [place] [address] 10/22/2023 3:40 PM EST Office Visit [address] [phone] Devyn Balbuena MD [address] [place] [address] 10/24/2023 3:30 PM EST Office Visit Urogynecology [facility] [address] [place] [address] Tramaine Day MD [address] [place] [address] 02/14/2024 8:20 AM EDT Office Visit [address] [phone] Shanta Moore PA-C [address] [place] [address] Pending Results Name Type Priority Associated Diagnoses Date /Time VITAMIN B12 Lab Routine Current use of proton pump inhibitor 09/04/2023 1:36 PM EST MAGNESIUM Lab Routine Current use of proton pump inhibitor 09/04/2023 1:36 PM EST Scheduled Procedures Name Priority Associated Diagnoses Date/Ti [...] this encounter Medical Devices Implanted Type Area Supervisor Industrial Garment Device Identifier Shelf Expiration Date Model / Serial / Lot Romina Donisoral Sz 5 Mm - [id number] Implanted:Qty: 1 on 03/03/2020 by Juan Hurtado MD at OR [facility] Left: Knee EL : ORTHOPAEDICS 07/23/2024 [id number] / / 1M1R-1 System Implant Speedbridge - [id number] Implanted:Qty: 1 on 08/07/2022 by Darwin Colon MD at OR [facility] Left: Shoulder [employer] 09/16/2025 AR-2600SB S-4 / / [id number] documented as of this encounter Visit Diagnoses Diagnosis Multiple nevi- Primary Benign neoplasm of skin, site unspecified Skin exam, screening for cancer Screening for malignant neoplasm of the skin Lentigines Other dyschromia Seborrheic keratosis Other seborrheic keratosis Current use of proton pump inhibitor documented in this encounter Advance Directives Latest [...] the patient have Health Care Power of Border Measurer And Cutter? No Full Code 03/03/2020 2:52 PM 03/03/2020 [...] Luis Armando Mixon Jr. Spouse Emergency Contact [email or web address] Care Teams Card Player Relationship Specialty Start Date End Date Devyn Balbuena MD [address] [place] [phone] PCP - General Family Medicine 08/11/22 documented as of this encounter
--- OUTSIDE RECORDS SUMMARY | 2023-09-14 15:16 | External Medical Summary | Summary of Care ---
Author Name Unknown Organization [facility] Address [address] [place] [address] Phone [phone] Care Team Providers Care Elocution Teacher Name Role Phone Devyn Balbuena MD Primary Care Provider [phone] Reason for Visit * Reason Comments Follow Up 1 year for full skin exam Encounter Details Date Type Department Care Team (Late st Contact Info) Description 09/04/2023 3:40 PM EST Office Visit Dermatology[address] [address] Jory Lamar, JOSSELY[place]-Radha [address] [place] [address] [place] [address] Multiple nevi*; Skin exam, screening for cancer; [...] program 09/14/2017 04/19/2020 Overview: DO NOT DELETE [facility] DETECT Study: Project # [id number], Pupil Personnel Worker: Jorden Cleaning, PhD. SUMMARY: Goal: Establish test [...] contact study staff at ; after hours Pupil Personnel Worker via the [facility] hospital forging press operator . Please contact study team before resolving/deleting from patients problem list. Study phone number: [phone]. Diagnosis changed due to Research Module. Go to Snapshot for study details. Encounter for examination fo r normal comparison and control in clinical research program 09/14/2017 05/18/2022 Overview: DO NOT DELETE - Erick CHRISTIANSON Study: Project # [id number], Pupil Personnel Worker: Armando Woodard, MS, MPH. SUMMARY: Goal: Establish [...] contact study staff at ; after hours Pupil Personnel Worker via the [facility] hospital forging press operator . - Please contact study team before resolving/deleting from patients problem list. Study phone number: [phone]. Diagnosis changed due to Research Module. Go [...] Product examples; Think sport, Think baby, Juliette, [employer], [place], [place] baby. "Baby" products can be used for all ages. documented in this encounter Progress Notes * Jory Lamar PA-C - 09/04/2023 3:40 [...] HPI SKIN CANCER HX: NONE Reviewed all [facility] pathology reports and clinic notes as [...] treatment. Jory Lamar PA-C [facility] [address] [facility] [address] documented in this encounter Nursing Notes * Marta Du LPN - 09/04/2023 4:07 PM EST Patient identified by full name and date of . Chief Complaint Patient presents with Follow Up 1 year for full skin exam documented in this encounter Plan of Treatment Upcoming Encounters Date Type Department Care Team (Late st Contact Info) Description 10/01/2023 11:40 AM EST Telemedicine Urogynecology [facility] [address] [place] [address] Tramaine Day MD [address] [place] [address] 10/22/2023 3:40 PM EST Office Visit [address] [phone] Devyn Balbuena MD [address] [place] [address] 10/24/2023 3:30 PM EST Office Visit Urogynecology [facility] [address] [place] [address] Tramaine Day MD [address] [place] [address] 02/14/2024 8:20 AM EDT Office Visit [address] [phone] Shanta Moore PA-C [address] [place] [address] 10/23/2024 3:40 PM EST [facility] [address] [facility] [place] [address] Jory Lamar PA-C [address] [place] [address] [place] [address] Scheduled Procedures Name Priority Associated Diagnoses Date/Ti me COLONOSCOPY FLEXIBLE PROXIMAL DIAGNOSTIC Recall History of colon polyps Health Maintenance Due Date Last Done Comments Depression Screening 03/27/2023 03/27/2022 Mammogram 10/02/2023 10/02/2022, 1210/2020, 04/15/2020, Additional history exists DXA Scan 10/24/2023 [...] this encounter Medical Devices Implanted Type Area Boat Assembler Device Identifier Shelf Expiration Date Model / Serial / Lot Restoris Mck Fermoral Sz 5 Mm - [id number] Implanted:Qty: 1 on 03/03/2020 by Juan Hurtado MD at OR [facility] Left: Knee EL : ORTHOPAEDICS 07/23/2024 [id number] / / [id number] System Implant Speedbridge - [id number] Implanted:Qty: 1 on 08/07/2022 by Darwin Colon MD at OR [facility] Left: Shoulder [employer] 09/16/2025 AR-[id number] S-4 / / [id number] documented as of this encounter Procedures Procedure [...] the patient have Health Care Power of Tie In Hand? No Full Code 03/03/2020 2:52 PM 03/03/2020 [...] Luis Armando Mixon Jr. Spouse Emergency Contact [email or web address] Care Teams Elocution Teacher Relationship Specialty Start Date End Date Devyn Balbuena MD [address] [place] [address] PCP - General Family Medicine 08/11/22 documented as of this encounter
--- OUTSIDE RECORDS SUMMARY | 2023-09-14 15:17 | External Medical Summary | Summary of Care ---
Author Name Unknown Organization [facility] Address [address] [place] [address] Phone [phone] Care Team Providers Care Patient Access Associate Name Role Phone Devyn Balbuena MD Primary Care Provider [phone] Reason for Visit * Reason Onset Date Comments Test Results 05/22/2023 Encounter Details Date Type Department Care Team ([facility] Contact Info) Description 05/22/2023 Telephone Family [address] [phone] Devyn Balbuena MD [address] [place] [phone] Test Results Allergies Active Allergy Reactions Criticality Noted Date Comments Levofloxacin Nausea/vomiting Medium 10/16/2018 Molds & Smuts Other (Please comment) Medium 01/23/2019 Congestion and sore throat Poison Germania Extract 05/16/2023 documented as of this encounter (statuses as of 08/21/2023) Medications Medication Sig Dispensed Refills Start Date [...] mouth 1 Tablet daily . 0 Active Inulin (METAMUCIL CLEAR & NATURAL) powder Take by mouth daily. 0 Active Coenzyme Q10 10 MG Capsule Take 1 Capsule by mouth in the morning. 0 Active Ascorbic Acid (VITAMIN C) 500 MG chewable tablet Take 1 Tablet by mouth in the morning. 0 Active Multivitamin Women 50+ Oral Tablet Take by mouth . 0 Active Cetirizine HCl 10 MG Oral Capsule Take by mouth 1 Capsule in the morning. 90 Capsule 2 06/29/20 22 Active Fluticasone Propionate 50 MCG/ACT Nasal Suspension (Flonase)Indicat ions:Seasonal allergies SPRAY 2 SPRAYS INTO EACH NOSTRIL EVERY DAY 48 mL 3 09/30/19 23 Active Azelastine HCl 137 MCG/SPRAY Nasal Solution USE 1 SPRAY IN EACH NOSTRIL TWICE A DAY 0 09/03/20 22 Active Albuterol Sulfate (2.5 MG/3ML) 0.083% Inhalation Nebulization Solution (Proventil)Indic ations:Mild persistent asthma without complication Inhale 1 Vial via nebulizer every 4 hours as needed for Wheezing. 100 mL 3 01/12/20 23 Active Famotidine 20 MG Oral Tablet (Pepcid) TAKE 1 TABLET BY MOUTH TWICE A DAY 180 Tablet 1 01/23/20 23 Active Advair Diskus 500-50 MCG/ACT Inhalation Aerosol Powder Breath Activated (Fluticasone-Jah meterol)Indicati ons:Mild persistent asthma without complication INHALE BY MOUTH 1 PUFF IN THE MORNING AND 1 PUFF BEFORE BEDTIME. 180 Each 3 01/23/20 23 Active Montelukast Sodium 10 MG Oral Tablet (Singulair)Indic ations:Mild persistent asthma, uncomplicated,Al lergic rhinitis due to pollen TAKE 1 TABLET BY MOUTH EVERY DAY 90 Tablet 3 02/23/20 23 Active Albuterol Sulfate HFA 108 (90 Base) MCG/ACT Inhalation Aerosol SolutionIndicati ons:Mild persistent asthma without complication Inhale 2 Puffs by mouth every 6 hours as needed (as needed). 18 g 3 04/30/20 23 Active Diclofenac Sodium 1 % External Gel (Voltaren) Apply topically to affected area 4 g in the morning AND 4 g at noon AND 4 g in the evening AND 4 g before bedtime. Knee pain and swelling. 100 g 4 04/12/20 22 023 Discontinued Hydrocortisone Acetate 25 MG Rectal Suppository (Anusol-HC)Indic ations:Anal pain Administer into the rectum 2 times a day in the morning and at bedtime as needed for Hemorrhoids. Up to 2 weeks. 24 Suppository 1 05/15/20 22 023 Discontinued Nystatin-Triamci nolone 695137-1.1 UNIT/GM-% External Cream (Mycolog)Indicat ions:Intertrigo APPLY TOPICALLY TO AFFECTED AREA 2 TIMES A DAY FOR 14 DAYS. 30 g 5 05/19/20 22 023 Discontinued Omeprazole 20 MG Oral Capsule Delayed Release (PriLOSEC)Indica tions:Dysphagia, unspecified type TAKE 1 CAPSULE BY MOUTH DAILY 1 HOUR BEFORE THE FIRST MEAL OF THE DAY 90 Capsule 3 06/26/20 22 023 Discontinued(Re fill) Triamcinolone Acetonide 0.1 % Mouth/Throat Paste (Kenalog In Orabase)Indicati ons:Tongue sore Apply to erythematous area on tongue twice daily 5 g 1 01/23/20 23 023 Discontinued Solifenacin Succinate 10 MG Oral Tablet (VESIcare)Indica tions:Mixed stress and urge urinary incontinence TAKE 1 TABLET BY MOUTH EVERY DAY IN THE MORNING 90 Tablet 1 05/03/20 23 023 Discontinued(Me dication/Dose Changed) documented as of this encounter (statuses as of 08/21/2023) Active Problems Problem Noted Date Diagnosed Date [...] as of this encounter (statuses as of 08/21/2023) Resolved Problems Problem Noted Date Diagnosed Date Resolved Date ADVANCE DIRECTIVE INFORMATION 12/13/2017 10/06/2019 Overview: Pt does have a living will Encounter for examination fo r normal comparison and control in clinical research program 09/14/2017 04/19/2020 Overview: DO NOT DELETE [facility] DETECT Study: Project # [id number], Pomologist: Jorden Cleaning, PhD. SUMMARY: Goal: Establish test [...] contact study staff at ; after hours Pomologist via the [facility] crystallizer operator . Please contact study team before resolving/deleting from patients problem list. Study phone number: [phone]. Diagnosis changed due to Research Module. Go to Snapshot for study details. Encounter for examination fo r normal comparison and control in clinical research program 09/14/2017 05/18/2022 Overview: DO NOT DELETE - [facility] Study: Project # [id number], Pomologist: Armando Woodard, MS, MPH. SUMMARY: Goal: Establish [...] contact study staff at ; after hours Pomologist via the [facility] crystallizer operator . - Please contact study team before resolving/deleting from patients problem list. Study phone number: [phone]. Diagnosis changed due to Research Module. Go to Snapshot for study details. Hypertension 04/09/2017 Pneumonia 07/25/2017 Hay fever 08/10/2018 Hx of food allergy 8 Leukocytosis 08/10/2018 Overview: work up negative Urinary, incontinence, stress female 02/10/2015 Asthma, mild persistent 03/18 documented as of this encounter (statuses as of 08/21/2023) Immunizations Name Administration Dates Next Due COVID-19 mRNA, LNP-s, No Pre serve, 2-Dose Series (Moderna) 11/18/2020,10/23/2020 COVID-19, mRNA, LNP-s, PF, B ooster, 100mcg/0.5mg (Moderna) 02/09/2022,08/08/2021 Covid-19, Mrna, Lnp-s, Pf, B ivalent, 30 Mcg, IM, 12 yrs and above (Pfizer) 07/28/2022 Influenza, Whole Virus 06/17/2013,02/04/2013 Pneumococcal Conjugate Vacc, 13 Valent (Prevnar) 07/08/2015 Pneumococcal Polysaccharide PPV23 (Pneumovax) 05/16/2018,02/04/2013 SEASONAL INFLUENZA, PF, 6 M & Above, IM , (FLULAVAL or FLUZONE) 06/17/2018,06/18/2017 Season Influenza, Quad, PF, Adjuvanted, 65+ Yrs, IM (FLUAD) 05/27/2020 Seasonal Influenza, Quadriva lent Hd (Fluzone Hd) 07/10/2022,05/30/2021 Seasonal Influenza, Quadriva lent, No Preserve, IM [...] the money to buy more. Never true 03/27/20 22 Within the past 12 months, t he food you bought just didn't last and you didn't have money to get more. Never true 03/27/2022 Sex and Gender Information Value Date Recorded [...] encounter Miscellaneous Notes * Telephone Encounter - Fadumo Haley, ALIREZA - 05/22/2023 3:10 PM EDT Who is Requesting Test Results: Patient Primary Care Provider : Devyn Balbuena MD Tests Results Requested : labs Date of Test : 05/18 Location of Test: [facility] Ordering Provider: PCP Callback Number: [phone] Patient has been made aware that the turnaround time for test results are typically as follows: Laboratory results = within 2 days Urine Cultures = within 2-3 days depending on growth within the culture Pathology results (biopsy results/PAP) = 1-2 weeks Radiology results = within 1 week Cologuard results = within 2 weeks from the shipment date COVID testing = results are on average 7 days documented in this encounter Plan of Treatment Upcoming Encounters Date Type Department Care Team (Late st Contact Info) Description 09/04/2023 3:40 PM EST Office Visit Dermatology[address] [address] Jory Lamar PA-C [address] [place] [address] [place] [address] 10/01/2023 11:40 AM EST Telemedicine Urogynecology [facility] [address] [facility] [place] [address] Tramaine Day MD [address] [place] [address] 10/22/2023 3:40 PM EST Office Visit [address] [phone] Devyn Balbuena MD [address] [place] [address] 10/24/2023 3:30 PM EST Office Visit Urogynecology [facility] [address] [facility] [place] [address] Tramaine Day MD [address] [place] [address] 02/14/2024 8:20 AM EDT Office Visit [address] [phone] Shanta Moore PA-C [address] [place] [address] Scheduled Procedures Name Priority Associated Diagnoses Date/Ti [...] this encounter Medical Devices Implanted Type Area Director Of Radiology Device Identifier Shelf Expiration Date Model / Serial / Lot Restoris Mck Fermoral Sz 5 Mm - [id number] Implanted:Qty: 1 on 03/03/2020 by Juan Hurtado MD at OR [facility] Left: Knee EL : ORTHOPAEDICS 07/23/2024 [id number] / / [id number]-1 System Implant [employer] - [id number] Implanted:Qty: 1 on 08/07/2022 by Darwin Colon MD at OR [facility] Left: Shoulder [employer] 09/16/2025 AR-2600SB S-4 / / [id number] documented as of this encounter Advance Directives [...] the patient have Health Care Power of Furnace Caretaker? No Full Code 03/03/2020 2:52 PM 03/03/2020 [...] Luis Armando Mixon Jr. Spouse Emergency Contact [email or web address] Care Teams Patient Access Associate Relationship Specialty Start Date End Date Devyn Balbuena MD [address] [place] [address] PCP - General Family Medicine 08/11/22 documented as of this encounter
--- OUTSIDE RECORDS SUMMARY | 2023-09-14 15:17 | External Medical Summary ---
Author Name Unknown Address Unknown Organization [id number]:[facility] - [address] [place] [address] Laboratory Report Ordering Provider Test Date Status ANA AMEZCUA 09/04/2023 13:36:18 Final Observation Date Value Abnormality Reference (Units ) Status Vitamin B12 09/04/2023 13:36:18 [id number] (pg/mL) Final Performing Location [facility] - [address] [place] [address]
--- OUTSIDE RECORDS SUMMARY | 2023-09-14 15:17 | External Medical Summary | Summary of Care ---
Author Name Unknown Organization [facility] Address [address] [place] [address] Phone [phone] Care Team Providers Care Bottling Room Worker Name Role Phone Devyn Balbuena MD Primary Care Provider [phone] Reason for Visit * Reason Comments Sinus Problem Pt. Stated her sinus es are acting up. Has PND for weeks and getting worse. Having round mucus balls which chokes her at times. Right side of face is sore. Headaches. No ear aches. No sore throat. No fevers. Feels chilled especially at night. No SOB. No CP. Encounter Details Date Type Department Care Team (Late Contact Info) Description 08/23/2023 7:20 PM EST [facility] [address] [place] [id number] Ricky Rutherford PA-C [address] [id number] Acute non-recurrent maxillary sinusitis* Allergies Active Allergy Reactions Criticality Noted Date Comments Levofloxacin Nausea/vomiting Medium 10/16/2018 Molds & Smuts Other (Please comment) Medium 01/23/2019 Congestion and sore throat Poison Germania Extract 05/16/2023 documented as of this encounter (statuses as of 08/23/2023) Medications Medication Sig Dispensed Refills Start Date [...] Active Fluticasone Propionate 50 MCG/ACT Nasal Suspension (Flonase)Indicatio ns:Seasonal allergies SPRAY 2 SPRAYS INTO EACH NOSTRIL EVERY DAY 48 mL 3 09/30/2022 Active Azelastine HCl 137 MCG/SPRAY Nasal Solution USE 1 SPRAY IN EACH NOSTRIL TWICE A DAY 0 09/03/2022 Active Albuterol Sulfate (2.5 MG/3ML) 0.083% Inhalation Nebulization Solution (Proventil)Indicat ions:Mild persistent asthma without complication Inhale 1 Vial via nebulizer every 4 hours as needed for Wheezing. 100 mL 3 01/11/2023 Active Famotidine 20 MG Oral Tablet (Pepcid) TAKE 1 TABLET BY MOUTH TWICE A DAY 180 Tablet 1 01/22/2023 Active Advair Diskus 500-50 MCG/ACT Inhalation Aerosol Powder Breath Activated (Fluticasone-Salme terol)Indications: Mild persistent asthma without complication INHALE BY MOUTH 1 PUFF IN THE MORNING AND 1 PUFF BEFORE BEDTIME. 180 Each 3 01/22/2023 Active Montelukast Sodium 10 MG Oral Tablet (Singulair)Indicat ions:Mild persistent asthma, uncomplicated,Denis rgic rhinitis due to pollen TAKE 1 TABLET BY MOUTH EVERY DAY 90 Tablet 3 02/22/2023 Active Albuterol Sulfate HFA 108 (90 Base) MCG/ACT Inhalation Aerosol SolutionIndication s:Mild persistent asthma without complication Inhale 2 Puffs by mouth every 6 hours as needed (as needed). 18 g 3 04/30/2023 Active Estradiol 0.1 MG/GM Vaginal Cream (Estrace) Apply pea sized amount (0.5 gm) vaginally twice a week at bedtime 42.5 g 3 05/23/2023 Active Omeprazole 20 MG Oral Capsule Delayed Release (PriLOSEC)Indicati ons:Dysphagia, unspecified type Take 1 Capsule by mouth in the morning. 1 hour before the first meal of the day. 90 Capsule 3 08/02/2023 Active Amoxicillin-Pot Clavulanate 875-125 MG Oral Tablet (Augmentin) Take 1 Tablet by mouth in the morning and 1 Tablet before bedtime. Do all this for 10 days. 20 Tablet 0 08/23/2023 3 Active predniSONE 20 MG Oral Tablet (Deltasone) TAKE 1 TABLET 2x DAILY FOR 5 DAYS, THEN TAKE 1 TABLET 1x DAILY FOR 5 DAYS. 15 Tablet 0 08/23/2023 Active Inulin (METAMUCIL CLEAR & NATURAL) powder Take by mouth daily. 0 3 Discontinue d(Medicatio n List Clean Up) Solifenacin Succinate 10 MG Oral Tablet (VESIcare) Take 1 Tablet by mouth in the morning. 30 Tablet 11 06/26/2023 3 Discontinue d(Patient preference/ discontinua tion) Phenazopyridine HCl 200 MG Oral Tablet (Pyridium)Indicati ons:Dysuria Take 1 Tablet by mouth 3 times a day as needed for Pain, Mild. After meals for pain with urination 6 Tablet 0 07/17/2023 3 Discontinue d(Medicatio n List Clean Up) documented as of this encounter (statuses as of 08/23/2023) Active Problems Problem Noted Date Diagnosed Date [...] as of this encounter (statuses as of 08/23/2023) Resolved Problems Problem Noted Date Diagnosed Date Resolved Date ADVANCE DIRECTIVE INFORMATION 12/13/2017 10/06/2019 Overview: Pt does have a living will Encounter for examination fo r normal comparison and control in clinical research program 09/14/2017 04/19/2020 Overview: DO NOT DELETE [facility] DETECT Study: Project # [id number], [employer] Field Supervisor: Jorden Cleaning, PhD. SUMMARY: Goal: Establish test [...] contact study staff at ; after hours [employer] Field Supervisor via the [facility] carton machine operator . Please contact study team before resolving/deleting from patients problem list. Study phone number: [phone]. Diagnosis changed due to Research Module. Go to Snapshot for study details. Encounter for examination fo r normal comparison and control in clinical research program 09/14/2017 05/18/2022 Overview: DO NOT DELETE - [facility] DETECT Study: Project # [id number], [employer] Field Supervisor: Armando Woodard, MS, MPH. SUMMARY: Goal: Establish [...] contact study staff at ; after hours [employer] Field Supervisor via the [facility] hospital carton machine operator . - Please contact study team before resolving/deleting from patients problem list. Study phone number: [phone]. Diagnosis changed due to Research Module. Go to Snapshot for study details. Hypertension 04/09/2017 Pneumonia 07/25/2017 Hay fever 08/10/2018 Hx of food allergy 8 Leukocytosis 08/10/2018 Overview: work up negative Urinary, incontinence, stress female 02/10/2015 Asthma, mild persistent 03/18 documented as of this encounter (statuses as of 08/23/2023) Immunizations Name Administration Dates Next Due COVID-19 [...] on file documented as of this encounter Last Filed Vital Signs Vital Sign Reading Time Taken Comments Blood Pressure 147/79 08/23/2023 7:25 PM EST Pulse 74 08/23/2023 7:25 PM EST Temperature 36.5 C (97.7 F) 08/23/2023 7:25 PM ES T Respiratory Rate 20 08/23/2023 7:25 PM EST Oxygen Saturation 97% 08/23/2023 7:25 PM EST Inhaled Oxygen Concentration - - Weight - - Height - - Body Mass Index - - documented in this encounter Functional Status Functional Status Response [...] this encounter Patient Instructions * Patient Instructions* Ricky Rutherford PA-C - 08/23/2023 7:45 PM EST FLUIDS FLUIDS FLUIDS; MOTRIN AND TYLENOL DIRECTED FOR PAIN AND FEVERS; OTC COUGH / COLD MEDICINES DIRECTED; RETURN TO or SEE PCP IF NEEDED. documented in this encounter Progress Notes * Ricky Rutherford PA-C - 08/23/2023 7:31 PM EST Subjective: Marta Mixon is a 73 year old female. Chief Complaint Patient presents with Sinus Problem Pt. Stated her sinuses are acting up. Has PND for weeks and getting worse. Having round mucus ballswhich chokes her at times. Right side of face is sore. Headaches. No ear aches. No sore throat. No fevers. Feels chilled especially at night. No SOB. No CP. Nursing Notes: Kinga Holden RN 08/23/231928 Signed Nursing Notes: CC: Chief Complaint Patient presents with Sinus Problem Pt. Stated her sinuses are acting up. Has PND for weeks and getting worse. Having round mucus ballswhich chokes her at times. Right side of face is sore. Headaches. No ear aches. No sore throat. No fevers. Feels chilled especially at night. No SOB. No CP. Brief Hx: Has history of allergy sx's and sinus infections. Duration/Onset: . OTC meds: using 2 different antihistamines. Nasal spray. Accompanied by: self HPI: FOR 3wks NOW HAS BEEN USING HUMIDIFY, NASAL SPRAY, AND ANTIHISTAMINES TO GET OVER THE SINUS CONGESTION BUT THICK MUCOUS COMING OUT WHEN BLOWING AND USING THE NASAL SALINE AND FEELING IN IN THROAT; NO FEVERS BUT AT TIMES FEELS CHILLED/SWEATS; NO BLOODY NOSE; NO COUGHING - STILL IN HEAD; [facility] AND HAVING BLADDER SURGERY ON : All other systems reviewed and are negative. 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 90 Capsule 2 Azelastine HCl 137 MCG/SPRAY Nasal Solution USE 1 SPRAY IN EACH NOSTRIL TWICE A DAY Famotidine 20 MG Oral Tablet (Pepcid) TAKE 1 TABLET BY MOUTH TWICE A DAY 180 Tablet 1 Advair Diskus 500-50 MCG/ACT Inhalation Aerosol Powder Breath Activated (Fluticasone-Salmeterol) INHALE BY MOUTH 1 PUFF IN THE MORNING AND 1 PUFF BEFORE BEDTIME. 180 Each 3 Montelukast Sodium 10 MG Oral Tablet (Singulair) TAKE 1 TABLET BY MOUTH EVERY DAY 90 Tablet 3 Estradiol 0.1 MG/GM Vaginal Cream (Estrace) Apply pea sized amount (0.5 gm) vaginally twice a week at bedtime 42.5 g 3 Omeprazole 20 MG Oral Capsule Delayed Release (PriLOSEC) Take 1 Capsule by mouth in the morning. 1 hour before the first meal of the day. 90 Capsule 3 Amoxicillin-Pot Clavulanate 875-125 MG Oral Tablet (Augmentin) Take 1 Tablet by mouth in the morning and 1 Tablet before bedtime. Do all this for 10 days. 20 Tablet 0 predniSONE 20 MG Oral Tablet (Deltasone) TAKE 1 TABLET 2x DAILY FOR 5 DAYS, THEN TAKE 1 TABLET 1x DAILY FOR 5 DAYS. 15 Tablet 0 Fluticasone Propionate 50 MCG/ACT Nasal Suspension (Flonase) SPRAY 2 SPRAYS INTO EACH NOSTRIL EVERYDAY 48 mL 3 Albuterol Sulfate (2.5 MG/3ML) 0.083% Inhalation Nebulization Solution (Proventil) Inhale 1 Vial via nebulizer every 4 hours as needed for Wheezing. 100 mL 3 Albuterol Sulfate HFA 108 (90 Base) MCG/ACT Inhalation Aerosol Solution Inhale 2 Puffs by mouth every 6 hours as needed (as needed). 18 g 3 No current facility-administered medications for this visit. Review of patient's allergies indicates: Allergen Reactions Levofloxacin Nausea/vomiting Molds & Smuts Other (Please comment) Congestion and sore throat Poison Germania Extract OBJECTIVE: BP 147/79 | Pulse 74 | Temp 36.5 C (97.7 F) (Skin) | Resp 20 | SpO2 97% Review of Systems: See HPI. All other systems reviewed and are negative. PHYSICAL EXAM: General: alert, healthy, and no distress; PLEASANT AND POLITE EVER. Head: Normocephalic, No masses, lesions, tenderness or abnormalities Eye Exam: PERRLA, extraocular movements intact, conjunctiva are pink and non- injected, sclera clear Ears: External ears normal, Canals CLEAR, TM's DULLISH Nose: no mucosal erythema, ++ mucosal edema, +UPPER TURBS. discharge Oropharynx: no exudate, no erythema, lips, buccal mucosa, and tongue normal, and mucous membranes are moist++PND with RASPY VOICE NOTED; SOME THROAT CLEARING. Lymph: no palpable lymphadenopathy Lungs: chest symmetric with normal AP diameter, no chest deformities noted, no chest wall tenderness, lungs clear to auscultation; NO WHEEZE; NO RHONCHI ASSESSMENT/PLAN: Acute non-recurrent maxillary sinusitis (Primary) Other orders - Amoxicillin-Pot Clavulanate 875-125 MG Oral Tablet (Augmentin); Take 1 Tablet by mouth in the morning and 1 Tablet before bedtime. Do all this for 10 days. - predniSONE 20 MG Oral Tablet (Deltasone); TAKE 1 TABLET 2x DAILY FOR 5 DAYS, THEN TAKE 1 TABLET 1x DAILY FOR 5 DAYS. Ricky Rutherford PA-C 08/23/23 documented in this encounter Nursing Notes * Kinga Holden, RN - 08/23/2023 7:24 PM EST Nursing Notes: CC: Chief Complaint Patient presents with Sinus Problem Pt. Stated her sinuses are acting up. Has PND for weeks and getting worse. Having round mucus ballswhich chokes her at times. Right side of face is sore. Headaches. No ear aches. No sore throat. No fevers. Feels chilled especially at night. No SOB. No CP. Brief Hx: Has history of allergy sx's and sinus infections. Duration/Onset: . OTC meds: using 2 different antihistamines. Nasal spray. Accompanied by: self documented in this encounter Plan of Treatment Upcoming Encounters Date Type Department Care Team (Late st Contact Info) Description 09/04/2023 3:40 PM EST Office Visit [address] [address] Jory Lamar PA-C [address] [place] [address] [address] [place] [address] 10/01/2023 11:40 AM EST Telemedicine Urogynecology [facility] [address] [facility] [place] [place] [address] Tramaine Day MD [address] [place] [address] 10/22/2023 3:40 PM EST Office Visit [address] [phone] Devyn Balbuena MD [address] [place] [address] 10/24/2023 3:30 PM EST [facility] [address] [place] [address] Tramaine Day MD [address] [place] [place] [address] 02/14/2024 8:20 AM EDT Office Visit [facility] [address] [place] [phone] Shanta Moore PA-C [address] [place], [place] [phone] Scheduled Procedures Name Priority Associated Diagnoses Date/Ti [...] this encounter Medical Devices Implanted Type Area Rn Trauma Device Identifier Shelf Expiration Date Model / Serial / Lot Restoris Mck Fermoral Sz 5 Mm - [id number] Implanted:Qty: 1 on 03/03/2020 by Juan Hurtado MD at OR [facility] Left: Knee EL : ORTHOPAEDICS 07/23/2024 [id number] / / [id number] System Implant Speedbridge - [id number] Implanted:Qty: 1 on 08/07/2022 by Darwin Colon MD at OR [facility] Left: Shoulder [employer] 09/16/2025 [id number] S-4 / / [id number] documented as of this encounter Visit Diagnoses Diagnosis Acute non-recurrent maxillary sinusitis- Primary documented in this encounter Advance Directives Latest [...] the patient have Health Care Power of Tallow Refiner? No Full Code 03/03/2020 2:52 PM 03/03/2020 [...] Luis Armando Mixon Jr. Spouse Emergency Contact [email or web address] Care Teams Bottling Room Worker Relationship Specialty Start Date End Date Devyn Balbuena MD [address] [place] [address] PCP - General Family Medicine 08/11/22 documented as of this encounter"
--- OUTSIDE RECORDS SUMMARY | 2023-09-14 15:17 | External Medical Summary | Summary of Care ---
Author Name Unknown Organization [facility] Address [address] [place] [address] Phone [phone] Care Team Providers Care Steam Fitter Supervisor Maintenance Name Role Phone Devyn Barksdale MD Primary Care Provider [phone] Reason for Visit * Reason Onset Date Comments Med Request 08/27/2023 Encounter Details Date Type Department Care Team ([facility] Contact Info) Description 08/27/2023 Telephone Family [address] [phone] Devyn Barksdale MD [address] [place] [address] Med Request Allergies Active Allergy Reactions Criticality Noted Date Comments Levofloxacin Nausea/vomiting Medium 10/16/2018 Molds & Smuts Other (Please comment) Medium 01/23/2019 Congestion and sore throat Poison Germania Extract 05/16/2023 documented as of this encounter (statuses as of 08/28/2023) Medications Medication Sig Dispensed Refills Start Date [...] Active Fluticasone Propionate 50 MCG/ACT Nasal Suspension (Flonase)Indication s:Seasonal allergies SPRAY 2 SPRAYS INTO EACH NOSTRIL EVERY DAY 48 mL 3 09/30/2022 Active Azelastine HCl 137 MCG/SPRAY Nasal Solution USE 1 SPRAY IN EACH NOSTRIL TWICE A DAY 0 09/03/2022 Active Albuterol Sulfate (2.5 MG/3ML) 0.083% Inhalation Nebulization Solution (Proventil)Indicati ons:Mild persistent asthma without complication Inhale 1 Vial via nebulizer every 4 hours as needed for Wheezing. 100 mL 3 01/11/2023 Active Famotidine 20 MG Oral Tablet (Pepcid) TAKE 1 TABLET BY MOUTH TWICE A DAY 180 Tablet 1 01/22/2023 Active Advair Diskus 500-50 MCG/ACT Inhalation Aerosol Powder Breath Activated (Fluticasone-Salmet afshan)Indications:Mi ld persistent asthma without complication INHALE BY MOUTH 1 PUFF IN THE MORNING AND 1 PUFF BEFORE BEDTIME. 180 Each 3 01/22/2023 Active Montelukast Sodium 10 MG Oral Tablet (Singulair)Indicati ons:Mild persistent asthma, uncomplicated,Aller gic rhinitis due to pollen TAKE 1 TABLET BY MOUTH EVERY DAY 90 Tablet 3 02/22/2023 Active Albuterol Sulfate HFA 108 (90 Base) MCG/ACT Inhalation Aerosol SolutionIndications :Mild persistent asthma without complication Inhale 2 Puffs by mouth every 6 hours as needed (as needed). 18 g 3 04/30/2023 Active Estradiol 0.1 MG/GM Vaginal Cream (Estrace) Apply pea sized amount (0.5 gm) vaginally twice a week at bedtime 42.5 g 3 05/23/2023 Active Omeprazole 20 MG Oral Capsule Delayed Release (PriLOSEC)Indicatio ns:Dysphagia, unspecified type Take 1 Capsule by mouth in the morning. 1 hour before the first meal of the day. 90 Capsule 3 08/02/2023 Active Amoxicillin-Pot Clavulanate 875-125 MG Oral Tablet (Augmentin) Take 1 Tablet by mouth in the morning and 1 Tablet before bedtime. Do all this for 10 days. 20 Tablet 0 08/23/2023 09/02/2023 Active predniSONE 20 MG Oral Tablet (Deltasone) TAKE 1 TABLET 2x DAILY FOR 5 DAYS, THEN TAKE 1 TABLET 1x DAILY FOR 5 DAYS. 15 Tablet 0 08/23/2023 Active Fluconazole 150 MG Oral Tablet (Diflucan)Indicatio ns:Thrush Take 1 Tablet by mouth once for 1 dose. 1 Tablet 0 08/28/2023 08/28/2023 Active documented as of this encounter (statuses as of 08/28/2023) Active Problems Problem Noted Date Diagnosed Date [...] as of this encounter (statuses as of 08/28/2023) Resolved Problems Problem Noted Date Diagnosed Date Resolved Date ADVANCE DIRECTIVE INFORMATION 12/13/2017 10/06/2019 Overview: Pt does have a living will Encounter for examination fo r normal comparison and control in clinical research program 09/14/2017 04/19/2020 Overview: DO NOT DELETE [facility] DETECT Study: Project # [id number], [employer]: Jorden Cleaning, PhD. SUMMARY: Goal: Establish test [...] contact study staff at ; after hours [employer] via the [facility] sprue cutting press operator . Please contact study team before resolving/deleting from patients problem list. Study phone number: [phone]. Diagnosis changed due to Research Module. Go to Snapshot for study details. Encounter for examination fo r normal comparison and control in clinical research program 09/14/2017 05/18/2022 Overview: DO NOT DELETE - [facility] Study: Project # [id number], [employer]: Armando Woodard, MS, MPH. SUMMARY: Goal: Establish [...] contact study staff at ; after hours [employer] via the [facility] sprue cutting press operator . - Please contact study team before resolving/deleting from patients problem list. Study phone number: [phone]. Diagnosis changed due to Research Module. Go to Snapshot for study details. Hypertension 04/09/2017 Pneumonia 07/25/2017 Hay fever 08/10/2018 Hx of food allergy 8 Leukocytosis 08/10/2018 Overview: work up negative Urinary, incontinence, stress female 02/10/2015 Asthma, mild persistent 03/18 documented as of this encounter (statuses as of 08/28/2023) Immunizations Name Administration Dates Next Due COVID-19 [...] encounter Miscellaneous Notes * Telephone Encounter - Mely Santos LPN - 08/28/2023 2:27 PM EST I called and spoke to patient and verified the pharmacy the medication was sent to was the correct one and she stated that it was and that she will be picking it up shortly. * Telephone Encounter - Cristal Dumas CPhT - 08/28/2023 2:15 PM EST Pt calling to request Fluconazole 150 MG Oral Tablet . Informed pt that RX is available at their pharmacy. Pt verbalized understanding and stated they will check with their pharmacy regarding this medication. Thank you, Cristal Dumas Heavy Duty Press Operator [facility] ([facility] (Formerly [facility]) 08/28/2023,2:15 PM * Telephone Encounter - Devyn Barksdale MD - 08/28/2023 12:07 PM EST Please call in the prescription to patients pharmacy and close encounter. Signed Prescriptions: Disp Refills Fluconazole 150 MG Oral Tablet (Diflucan) 1 Tabl*0 Sig: Take 1 Tablet by mouth once for 1 dose. Authorizing Provider: DEVYN BARKSDALE * Telephone Encounter - Jory Diehl MED ASSIST - 08/27/2023 12:17 PM EST Please advise. * Telephone Encounter - Uche Eckert PHARM Tech - 08/27/2023 11:43 AM EST Pt calling with complaints of yeast infection and is requesting a medication be prescribed. Pt did not want to schedule an appointment at this time. Call details was completed, please refer to this for further information. Thanks, Uche Jimenez, t Heavy Duty Press Operator [facility] ([facility]) (formerly [facility]). 08/27/2023,11:44 AM documented in this encounter Plan of Treatment Upcoming Encounters Date Type Department Care Team (Late st Contact Info) Description 09/04/2023 3:40 PM EST [address] [address] Jory Lamar PA-C [address] [place] [address] [place] [address] 10/01/2023 11:40 AM EST Telemedicine Urogynecology [facility] [address] [place] [address] Tramaine Day MD [address] [place] [address] 10/22/2023 3:40 PM EST Office Visit [facility] [address] [place] [phone] Devyn Barksdale MD [address] [place] [address] 10/24/2023 3:30 PM EST Office Visit [facility] [address] [place] [address] Tramaine Day MD [address] [place] [address] 02/14/2024 8:20 AM EDT Office Visit [address] [phone] Shanta Moore PA-C [address] [place] [address] Scheduled Procedures Name Priority Associated Diagnoses Date/Ti [...] this encounter Medical Devices Implanted Type Area Occupational Safety And Health Manager Device Identifier Shelf Expiration Date Model / Serial / Lot Restoris Mck Fermoral Sz 5 Mm - [id number] Implanted:Qty: 1 on 03/03/2020 by Juan Hurtado MD at OR [facility] Left: Knee EL : ORTHOPAEDICS 07/23/2024 [id number] / / [id number] System Implant [employer] - [id number] Implanted:Qty: 1 on 08/07/2022 by Darwin Colon MD at OR [facility] Left: Shoulder [employer] 09/16/2025 [id number] S-4 / / [id number] documented as of this encounter Visit Diagnoses Diagnosis Thrush- Primary Candidiasis of mouth documented in this encounter Advance Directives Latest [...] the patient have Health Care Power of Conductor Orchestra? No Full Code 03/03/2020 2:52 PM 03/03/2020 [...] Healthcare Agent Relationship Communication Luis Armando Mixon JrAmilcar Spouse Emergency Contact [email or web address] Teams Steam Fitter Supervisor Maintenance Relationship Specialty Start Date End Date Devyn Barksdale MD [address] [place] [address] PCP - General Family Medicine 08/11/22 documented as of this encounter
--- OUTSIDE RECORDS SUMMARY | 2023-09-14 15:17 | External Medical Summary | Summary of Care ---
Author Name Unknown Organization [facility] Address [address] [place] [address] Phone [phone] Care Team Providers Care Pre Owned Sales Consultant Name Role Phone Devyn Barksdale MD Primary Care Provider [phone] Reason for Visit * Reason Onset Date Comments Abnormal Test Results 05/14/2023 Encounter Details Date Type Department Care Team ([facility] Contact Info) Description 05/14/2023 Telephone Family [address] [phone] Devyn Barksdale MD [address] [place] [id number] Abnormal Test Results Allergies Active Allergy Reactions Criticality Noted Date Comments Levofloxacin Nausea/vomiting Medium 10/16/2018 Molds & Smuts Other (Please comment) Medium 01/23/2019 Congestion and sore throat Poison Germania Extract 05/16/2023 documented as of this encounter (statuses as of 08/13/2023) Medications Medication Sig Dispensed Refills Start Date [...] and swelling. 100 g 4 04/12/20 22 06/06/ 023 Discontinued Hydrocortisone Acetate 25 MG Rectal Suppository (Anusol-HC)Indic ations:Anal pain Administer into the rectum 2 times a day in the morning and at bedtime as needed for Hemorrhoids. Up to 2 weeks. 24 Suppository 1 05/15/20 22 023 Discontinued Nystatin-Triamci nolone 198904-6.1 UNIT/GM-% External Cream (Mycolog)Indicat ions:Intertrigo APPLY TOPICALLY [...] 5 g 1 01/23/20 23 023 Discontinued Azithromycin 250 MG Oral Tablet (Zithromax)Indic ations:Babesiasi s Take 2 tabs by mouth on the first day, then 1 tab daily on days two through Nine 10 Tablet 0 05/23/20 23 023 Atovaquone 750 MG/5ML Oral Suspension (Mepron)Indicati ons:Babesiasis Take 5 mL by mouth in the morning and 5 mL before bedtime. For 10 days. 100 mL 0 05/23/20 23 023 Discontinued documented as of this encounter (statuses as of 08/13/2023) Active Problems Problem Noted Date Diagnosed Date [...] as of this encounter (statuses as of 08/13/2023) Resolved Problems Problem Noted Date Diagnosed Date Resolved Date ADVANCE DIRECTIVE INFORMATION 12/13/2017 10/06/2019 Overview: Pt does have a living will Encounter for examination fo r normal comparison and control in clinical research program 09/14/2017 04/19/2020 Overview: DO NOT DELETE [facility] DETECT Study: Project # [id number], Mill Platform Supervisor: Jorden Cleaning, PhD. SUMMARY: Goal: Establish [...] contact study staff at ; after hours Mill Platform Supervisor via the [facility] brake press operator . Please contact study team before resolving/deleting from patients problem list. Study phone number: [phone]. Diagnosis changed due to Research Module. Go to Snapshot for study details. Encounter for examination fo r normal comparison and control in clinical research program 09/14/2017 05/18/2022 Overview: DO NOT DELETE - [facility] DETECT Study: Project # [id number], Mill Platform Supervisor: Armando Woodard, MS, MPH. SUMMARY: Goal: [...] contact study staff at ; after hours Mill Platform Supervisor via the [facility] hospital brake press operator . - Please contact study team before resolving/deleting from patients problem list. Study phone number: [phone]. Diagnosis changed due to Research Module. Go to Snapshot for study details. Hypertension 04/09/2017 Pneumonia 07/25/2017 Hay fever 08/10/2018 Hx of food allergy 8 Leukocytosis 08/10/2018 Overview: work up negative Urinary, incontinence, stress female 02/10/2015 Asthma, mild persistent 03/18 documented as of this encounter (statuses as of 08/13/2023) Immunizations Name Administration Dates Next Due COVID-19 [...] encounter Miscellaneous Notes * Telephone Encounter - Devyn Barksdale MD - 05/23/2023 6:43 PM EDT I called and spoke with patient Babesia positive Start treatment with following 2 antibiotics Side effects reviewed Please call in the prescription to patients pharmacy and close encounter. Signed Prescriptions: Disp Refills Azithromycin 250 MG Oral Tablet (Zithromax)10 Tab*0 Sig: Take 2 tabs by mouth on the first day, then 1 tab daily on days two through Nine Authorizing Provider: DEVYN BARKSDALE Atovaquone 750 MG/5ML Oral Suspension (Mep*100 mL 0 Sig: Take 5 mL by mouth in the morning and 5 mL before bedtime. For 10 days. Authorizing Provider: DEVYN BARKSDALE * Telephone Encounter - Jovita Shaw LPN - 05/15/2023 9:43 AM EDT Provider to address: Labs Reason for Call: Abnormal Test Results Contact: Telephone Call Contact Type: Orders Outcome: Spoke with patient and she is aware of information from Dr. Barksdale and is going to come in to have the labs drawn. Total Time including non face to face (minutes): 5 * Telephone Encounter - Devyn Barksdale MD - 05/14/2023 5:46 PM EDT I would like patient to have further labs done at our clinic tomorrow Labs ordered are 1-lyme diease antibody screen with reflex to confirmation 2-anaplasma phagocytophilum DNA 3-blood borne parasite smear with para sitemia reflex Lets plan after these labs * Telephone Encounter - Laura Fletcher LPN - 05/14/2023 3:21 PM EDT Provider to address: Patient donated blood on 05/10. 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 No known tick bites recently. Persistent fatigue for several weeks. Knee joint pain and headaches intermittently which isn't typical for her. The last time she gave blood was 2 months ago and there was no abnormalities. Patient's gets a lot of tick bites and they gave blood together this time and 2 months ago (both normal then) Wonders if there is any chance the [facility] got their blood mixed up. Her hasn't had any symptoms at all tho. Patient called the [facility] while we were on the phone to request the results be sent to her and/or our office. They are going to send her 2 letters in the mail. Unsure when she will receive them. Reason for Call: Abnormal test results. Contact: Telephone Call Contact Type: Follow-up Outcome: Patient has her 6 month return appt on 05/16 with Shanta Moore PA-C. Please discuss at the appt. Total Time including non face to face (minutes): 35 * Telephone Encounter - Fe Carrion OSA - 05/14/2023 3:19 PM EDT Pt returning nurse call connected to nurse laura * Telephone Encounter - Jovita Shaw LPN - 05/14/2023 1:48 PM EDT Please advise, thank you! * Telephone Encounter - Lakshmi Bee OSA - 05/14/2023 1:28 PM EDT Reason for patient's call: tick bite, patient gave blood to cristofer Vpon on 05/10/2023 and branden advised patient she had an infection in blood due to tick bite. documented in this encounter Plan of Treatment Upcoming Encounters Date Type Department Care Team ([facility] Contact Info) Description 08/16/2023 8:20 AM EST Office Visit [address] [phone] Shanta Moore PA-C [address] [place] [address] 09/04/2023 3:40 PM EST Office Visit [address] [address] Jory Lamar PA-C [address] [place] [address] [place] [address] 10/01/2023 11:40 AM EST Telemedicine Urogynecology [facility] [address] [place] [address] Tramaine Day MD [address] [place] [address] 10/22/2023 3:40 PM EST Office Visit [address] [phone] Devyn Barksdale MD [address] [place] [address] 10/24/2023 3:30 PM EST Office Visit Urogynecology [facility] [address] [place] [address] Tramaine Day MD [address] [place] [address] Scheduled Procedures Name Priority Associated Diagnoses Date/Ti me COLONOSCOPY FLEXIBLE PROXIMAL DIAGNOSTIC Recall History of colon polyps Health Maintenance Due Date Last Done Comments Depression Screening 03/27/2023 03/27/2022 Mammogram 10/02/2023 10/02/2022, 12/0 10/2020, 04/15/2020, Additional history exists DXA Scan [...] this encounter Medical Devices Implanted Type Area Digital Strategist Senior Manager Device Identifier Shelf Expiration Date Model / Serial / Lot Restoris Mck Fermoral Sz 5 Mm - [id number] Implanted:Qty: 1 on 03/03/2020 by Juan Hurtado MD at OR [facility] Left: Knee EL : ORTHOPAEDICS 07/23/2024 [id number] / / [id number]-1 System Implant Speedbridge - [id number] Implanted:Qty: 1 on 08/07/2022 by Darwin Colon MD at OR [facility] Left: Shoulder [employer] 09/16/2025 AR-2600SB S-4 / / [id number] documented as of this encounter Results * ANAPLASMA PHAGOCYTOPHILUM DNA, QL REAL-TIME PCR (05/15/2023 1:35 PM EDT) A.Phagocytophil um, DNA, PCR Not Detected Not Detected 05/18/2023 1:48 PM EDT [employer] [place] Comment: This test was developed and its analytical performance characteristics have been determined by [employer] [place], [place]. It has not been cleared or approved by the U.S. Food and Drug Administration. This assay has been validated pursuant to the CLIA regulations and is used for clinical purposes. Test Performed at: [facility] [address] [place] [address] Rj Gray M.D., Ph.D.,Director of Laboratories Blood Venous blood specimen / Unknown Venipuncture / Unknown 05/15/2023 1:35 PM EDT 05/15/2023 1:35 PM EDT Devyn Barksdale MD LAB BLOOD ORDERABLES [facility] [address] [place] [address] documented in this encounter Visit Diagnoses Diagnosis Arthralgia, unspecified joint- Primary Generalized headaches Headache Babesiasis Babesiosis documented in this encounter Advance Directives Latest [...] the patient have Health Care Power of Rodding Anode Worker? No Full Code 03/03/2020 2:52 PM 03/03/2020 [...] Luis Armando Mixon JrAmilcar Spouse Emergency Contact [email or web address] Care Teams Pre Owned Sales Consultant Relationship Specialty Start Date End Date Devyn Barksdale MD [address] [place] [address] PCP - General Family Medicine 08/11/22 documented as of this encounter
--- OUTSIDE RECORDS SUMMARY | 2023-09-14 15:17 | External Medical Summary | Summary of Care ---
Author Name Unknown Organization [facility] Address [address] [place] [address] Phone [phone] Care Team Providers Care Sword Swallower Name Role Phone Devyn Balbuena MD Primary Care Provider [phone] Reason for Visit * Reason Comments Outpatient Testing Encounter Details Date Type Department Care Team (Late st Contact Info) Description 09/04/2023 1:50 PM EST Laboratory Laboratory, [address] [id number] [place] [address] Gj, Lab [facility] [place] [address] Current use of proton pump inhibitor Allergies [...] 09/14/2017 04/19/2020 Overview: DO NOT DELETE [facility] DETECT Study: Project # [id number], Manager Resource: Jorden Cleaning, PhD. SUMMARY: Goal: Establish test [...] contact study staff at ; after hours Manager Resource via the [facility] waste water operator . Please contact study team before resolving/deleting from patients problem list. Study phone number: [phone]. Diagnosis changed due to Research Module. Go to Snapshot for study details. Encounter for examination fo r normal comparison and control in clinical research program 09/14/2017 05/18/2022 Overview: DO NOT DELETE - [facility] DETECT Study: Project # [id number], Manager Resource: Armando Woodard, MS, MPH. SUMMARY: Goal: Establish [...] contact study staff at ; after hours Manager Resource via the [facility] hospital waste water operator . - Please contact study team before resolving/deleting from patients problem list. Study phone number: [phone]. Diagnosis changed due to Research Module. Go [...] Description 09/04/2023 3:40 PM EST Office Visit [address] [address] Jory Lamar PA-C [address] [place] [address] [place] [address] 10/01/2023 11:40 AM EST Telemedicine Urogynecology [facility] [address] [facility] [place] [address] Tramaine Day MD [address] [place] [address] 10/22/2023 3:40 PM EST Office Visit [address] [phone] Devyn Balbuena MD [address] [place] [address] 10/24/2023 3:30 PM EST Office Visit Urogynecology [facility] [address] [place] [address] Tramaine Day MD [address] [place] [address] 02/14/2024 8:20 AM EDT Office Visit [address] [phone] Shanta Moore PA-C [address] [place] [address] Pending Results Name Type Priority Associated Diagnoses [...] this encounter Medical Devices Implanted Type Area Colorist Formulator Device Identifier Shelf Expiration Date Model / Serial / Lot Romina Donisoral Sz 5 Mm - [id number] Implanted:Qty: 1 on 03/03/2020 by Juan Hurtado MD at OR [facility] Left: Knee EL : ORTHOPAEDICS 07/23/2024 [id number] / / [id number]-1 System Implant [employer] - [id number] Implanted:Qty: 1 on 08/07/2022 by Darwin Colon MD at OR [facility] Left: Shoulder [employer] 09/16/2025 AR-2600SB S-4 / / [id number] documented as of this encounter Visit Diagnoses [...] the patient have Health Care Power of [employer] Advanced Operator Maintainer? No Full Code 03/03/2020 2:52 PM 03/03/2020 [...] Luis Armando Mixon Jr. Spouse Emergency Contact [email or web address] Care Teams Sword Swallower Relationship Specialty Start Date End Date Devyn Balbuena MD [address] [place] [id number] PCP - General Family Medicine 08/11/22 documented as of this encounter
--- OUTSIDE RECORDS SUMMARY | 2023-09-14 15:17 | External Medical Summary | Summary of Care ---
Author Name Unknown Organization [facility] Address [address] [place] [address] Phone [phone] Care Team Providers Care Forder Operator Name Role Phone Devyn Balbuena MD Primary Care Provider [phone] Reason for Visit * Reason Comments Follow Up Patient is here for a 3 month return today.Patient would like to discuss sinus congestion & drainage Left arm has been bothering her for about 2 weeks now.Hurts when she pulls her pants on and certain movements.Does lift weights and is unsure if this could be the cause of arm pain.Surgery at the end of August to have he bladder raises again. Encounter Details Date Type Department Care Team ([facility] Contact Info) Description 08/16/2023 8:20 AM EST Office Visit [address] [phone] Shanta Moore PA-C [address] [place] [phone] Mild persistent asthma without complication*; Seasonal allergies; Babesiasis; Vaginal vault prolapse; HTN, goal below 130/80 Allergies Active Allergy Reactions Criticality Noted Date Comments Levofloxacin Nausea/vomiting Medium 10/16/2018 Molds & Smuts Other (Please comment) Medium 01/23/2019 Congestion and sore throat Poison Germania Extract 05/16/2023 documented as of this encounter (statuses as of 08/16/2023) Medications Medication Sig Dispensed Refills Start Date [...] at bedtime 42.5 g 3 05/23/2023 Active Solifenacin Succinate 10 MG Oral Tablet (VESIcare) Take 1 Tablet by mouth in the morning. 30 Tablet 11 06/26/2023 Active Additional Information Patient not taking.Reported on 08/16/2023 Phenazopyridine HCl 200 MG Oral Tablet (Pyridium)Indicatio ns:Dysuria Take 1 Tablet by mouth 3 times a day as needed for Pain, Mild. After meals for pain with urination 6 Tablet 0 07/17/2023 Active Additional Information Patient not taking.Reported on 08/16/2023 Omeprazole 20 MG Oral Capsule Delayed Release (PriLOSEC)Indicatio ns:Dysphagia, unspecified type Take 1 Capsule by mouth in the morning. 1 hour before the first meal of the day. 90 Capsule 3 08/02/2023 Active documented as of this encounter (statuses as of 08/16/2023) Active Problems Problem Noted Date Diagnosed Date [...] as of this encounter (statuses as of 08/16/2023) Resolved Problems Problem Noted Date Diagnosed Date Resolved Date ADVANCE DIRECTIVE INFORMATION 12/13/2017 10/06/2019 Overview: Pt does have a living will Encounter for examination fo r normal comparison and control in clinical research program 09/14/2017 04/19/2020 Overview: DO NOT DELETE [facility] DETECT Study: Project # [id number], Mural Artist: Jorden Cleaning, PhD. SUMMARY: Goal: Establish test [...] contact study staff at ; after hours Mural Artist via the [facility] bucket operator . Please contact study team before resolving/deleting from patients problem list. Study phone number: [phone]. Diagnosis changed due to Research Module. Go to Snapshot for study details. Encounter for examination fo r normal comparison and control in clinical research program 09/14/2017 05/18/2022 Overview: DO NOT DELETE - [facility] Study: Project # [id number], Mural Artist: Armando Woodard, MS, MPH. SUMMARY: Goal: Establish [...] contact study staff at ; after hours Mural Artist via the [facility] bucket operator . - Please contact study team before resolving/deleting from patients problem list. Study phone number: [phone]. Diagnosis changed due to Research Module. Go to Snapshot for study details. Hypertension 04/09/2017 Pneumonia 07/25/2017 Hay fever 08/10/2018 Hx of food allergy 8 Leukocytosis 08/10/2018 Overview: work up negative Urinary, incontinence, stress female 02/10/2015 Asthma, mild persistent 03/18 documented as of this encounter (statuses as of 08/16/2023) Immunizations Name Administration Dates Next Due COVID-19 mRNA, LNP-s, No Pre serve, 2-Dose Series (Moderna) 11/18/2020,10/23/2020 COVID-19, mRNA, LNP-s, PF, B ooster, 100mcg/0.5mg (Moderna) 02/09/2022,08/08/2021 Covid-19, Mrna, Lnp-s, Pf, B ivalent, 30 Mcg, IM, 12 yrs and above ([employer]) 07/28/2022 Influenza, Whole Virus 06/17/2013,02/04/2013 Pneumococcal Conjugate [...] Sign Reading Time Taken Comments Blood Pressure 128/80 08/16/2023 8:04 AM EST Pulse 70 08/16/2023 8:04 AM EST Temperature 36.5 C (97.7 F) 08/16/2023 8:04 AM ES T Respiratory Rate 20 08/16/2023 8:04 AM EST Oxygen Saturation 99% 08/16/2023 8:04 AM EST Inhaled Oxygen Concentration - - Weight 83.6 kg (184 lb 6.4 oz) 08/16/2023 8:04 A M EST Height 172.7 cm (5' 8") 08/16/2023 8:04 AM EST Body Mass Index 28.04 08/16/2023 8:04 AM EST documented in this encounter Functional Status Functional [...] No 03/03/2020 documented as of this encounter Progress Notes * Shanta Moore PA-C - 08/16/2023 8:17 AM EST Subjective: Marta Mixon is a 73 year old female. Chief Complaint Patient presents with Follow Up Patient is here for a 3 month return today. Patient would like to discuss sinus congestion & drainage Left arm has been bothering her for about 2 weeks now. Hurts when she pulls her pants on and certain movements. Does lift weights and is unsure if this could be the cause of arm pain. Surgery at the end of August to have he bladder raises again. HPI: Patient occasionally checks blood pressures at home. She reports they have been within normal limits. Planning bladder surgery next month for cystocele. Reports she has had 4 UTIs this year. Patient was recently treated for babesiosis. Is planning follow up blood work in August. Sinus congestion and post nasal drip over the past few months. She has been using Flonase and Azelastine sprays. She denies any fevers or chills. Left shoulder pain x2 weeks. No injury. She has been lifting weights. History of rotator cuff surgery Patient reports she continues to have occasional constipation. She uses milk of magnesia approximately once per week. Reports that the Colace seemed to upset her stomach. PMH: Patient Active Problem List Diagnosis Code Hyperlipidemia [...] meal of the day. 90 Capsule 3 Inulin (METAMUCIL CLEAR & NATURAL) powder Take by mouth daily. (Patient not taking: Reported on08/16/2023) Albuterol Sulfate (2.5 MG/3ML) 0.083% Inhalation Nebulization Solution (Proventil) Inhale 1 Vial via nebulizer every 4 hours as needed for Wheezing. 100 mL 3 Albuterol Sulfate HFA 108 (90 Base) MCG/ACT Inhalation Aerosol Solution Inhale 2 Puffs by mouth every 6 hours as needed (as needed). 18 g 3 Solifenacin Succinate 10 MG Oral Tablet (VESIcare) Take 1 Tablet by mouth in the morning. (Patient not taking: Reported on 08/16/2023) 30 Tablet 11 Phenazopyridine HCl 200 MG Oral Tablet (Pyridium) Take 1 Tablet by mouth 3 times a day as needed for Pain, Mild. After meals for pain with urination (Patient not taking: Reported on 08/16/2023) 6 Tablet 0 No current facility-administered medications for this visit. Review of patient's allergies indicates: Allergen Reactions Levofloxacin Nausea/vomiting Molds & Smuts Other (Please comment) Congestion and sore throat Poison Germania Extract Objective: BP 128/80 | Pulse 70 | Temp 36.5 C (97.7 F) (Tympanic) | Resp 20 | Ht 1.727 m (5' 8") | Wt 83.6kg (184 lb 6.4 oz) | SpO2 99% | BMI 28.04 kg/m | BSA 2 m General: alert, healthy, and no distress Heart: regular rate & rhythm, no murmur, and no gallops Lungs: chest symmetric with normal AP diameter, lungs clear to auscultation Neuro Exam: alert & oriented x 3 with fluent speech, no focal motor/sensory deficits Extremities: Full range of motion of left shoulder. Mild pain with internal lag test ASSESSMENT: Mild persistent asthma without complication (Primary) Seasonal allergies Babesiasis Vaginal vault prolapse HTN, goal below 130/80 Follow Up: Return in about 6 months (around 02/14/2024), or if symptoms worsen or fail to improve. Plan: HTN: amlodipine recently discontinued. patient is normotensive today in office. She is been checking her blood pressure at home and states it has been normal. She reports intentional weight loss and is continuing to make positive lifestyle modifications. Babesosis: patient has completed treatment. She is planning to be retested through [employer]. Anemia noted on patient's labs. likely secondary to the babesiosis. Patient denies any dark or bloody stools. Last colonoscopy was in October. Patient has mild asthma is well-controlled with Advair and Singulair Constipation: Continue colace and milk of magnesia as needed. Colonoscopy up to date Patient is following with Urogynecology for cystocele and vaginal vault prolapse. Plan for surgery at the end of next month. Seasonal allergies: Patient reports some mild sinus pressure today which has been ongoing over the past few months. No fevers. Discussed continuing supportive measures including nasal sprays. Will consider antibiotic sinus pressure increases. I spent a total of 30-39 minutes (exact time 32 mins) on the date of service in preparation, delivery, and documentation of the care provided to Marta Mixon excluding any time spent in the performance of separately billed services. Shanta Moore PA-C documented in this encounter Nursing Notes * Tori Lawrence CCMA - 08/16/2023 8:10 AM EST The patient has been properly identified by confirmation of name and date of . Chief Complaint Patient presents with Follow Up Patient is here for a 3 month return today. Patient would like to discuss sinus congestion & drainage Left arm has been bothering her for about 2 weeks now. Hurts when she pulls her pants on and certain movements. Does lift weights and is unsure if this could be the cause of arm pain. Surgery at the end of August to have he bladder raises again. documented in this encounter Plan of Treatment Upcoming Encounters Date Type Department Care Team (Late st Contact Info) Description 09/04/2023 3:40 PM EST Office Visit [address] [address] Jory Lamar PA-C [address] [place] [address] [place] [address] 10/01/2023 11:40 AM EST Telemedicine [facility] [place] [address] Tramaine Day MD [address] [place] [address] 10/22/2023 3:40 PM EST Office Visit [address] [phone] Devyn Balbuena MD [address] [place] [address] 10/24/2023 3:30 PM EST Office Visit Urogynecology [facility] [address] [facility] [place] [address] Tramaine Day MD [address] [place] [address] 02/14/2024 8:20 AM EDT Office Visit [address] [phone] Shanta Moore PA-C [address] [place] [address] Scheduled Procedures Name Priority Associated Diagnoses Date/Ti [...] Medical Devices Implanted Type Area Director Of Employer Services Device Identifier Shelf Expiration Date Model / Serial / Lot Restoris Mck Fermoral Sz 5 Mm - [id number] Implanted:Qty: 1 on 03/03/2020 by Juan Hurtado MD at OR [facility] Left: Knee EL : ORTHOPAEDICS 07/23/2024 [id number] / / [id number]-1 System Implant Speedbridge - [id number] Implanted:Qty: 1 on 08/07/2022 by Darwin Colon MD at OR [facility] Left: Shoulder [employer] 09/16/2025 AR-2600SB S-4 / / [id number] documented as of this encounter Visit Diagnoses Diagnosis Mild persistent asthma without complication- Primary Unspecified asthma Seasonal allergies Allergic rhinitis, cause unspecified Babesiasis Babesiosis Vaginal vault prolapse Unspecified prolapse of vaginal frederick HTN, goal below 130/80 Unspecified essential hypertension documented in this encounter Advance Directives Latest [...] the patient have Health Care Power of Brine Plant Operator? No Full Code 03/03/2020 2:52 PM [...] Relationship Healthcare Agent Relationship Communication Luis Armando Binghamkamilla Car Spouse Emergency Contact [email or web address] Care Teams Forder Operator Relationship Specialty Start Date End Date Devyn Balbuena MD [address] [place] [address] PCP - General Family Medicine 08/11/22 documented as of this encounter
--- OUTSIDE RECORDS SUMMARY | 2023-09-14 15:17 | External Medical Summary | Summary of Care ---
Author Name Unknown Organization [facility] Address [address] [place] [address] Phone [phone] Care Team Providers Care Block Cableman Name Role Phone Devyn Balbuena MD Primary Care Provider [phone] Reason for Visit * Reason Comments Outpatient Testing Encounter Details Date Type Department Care Team (Late st Contact Info) Description 09/04/2023 1:50 PM EST Laboratory Laboratory, [id number] [place] [address] Gj, Lab [facility] [place] [address] Current use of proton pump inhibitor Allergies [...] 04/19/2020 Overview: DO NOT DELETE [facility] DETECT Study: Project # [id number], Senior Finance Manager: Jorden Cleaning, PhD. SUMMARY: Goal: Establish [...] contact study staff at ; after hours Senior Finance Manager via the [facility] planishing hammer operator . Please contact study team before resolving/deleting from patients problem list. Study phone number: [phone]. Diagnosis changed due to Research Module. Go to Snapshot for study details. Encounter for examination fo r normal comparison and control in clinical research program 09/14/2017 05/18/2022 Overview: DO NOT DELETE - [facility] DETECT Study: Project # [id number], Senior Finance Manager: Armando Woodard, MS, MPH. SUMMARY: Goal: [...] contact study staff at ; after hours Senior Finance Manager via the [facility] hospital planishing hammer operator . - Please contact study team before resolving/deleting from patients problem list. Study phone number: [phone]. Diagnosis changed due to Research Module. Go [...] Description 09/04/2023 3:40 PM EST Office Visit [address] [address] Jory Lamar PA-C [address] [place] [address] [place] [address] 10/01/2023 11:40 AM EST Telemedicine Urogynecology [facility] [address] [facility] [place] [address] Tramaine Day MD [address] [place] [address] 10/22/2023 3:40 PM EST Office Visit [address] [phone] Devyn Balbuena MD [address] [place] [address] 10/24/2023 3:30 PM EST Office Visit Urogynecology [facility] [address] [place] [address] Tramaine Day MD [address] [place] [address] 02/14/2024 8:20 AM EDT Office Visit [address] [phone] Shanta Moore PA-C [address] [place] [address] Pending Results Name Type Priority Associated Diagnoses [...] this encounter Medical Devices Implanted Type Area Airbrush Artist Photography Device Identifier Shelf Expiration Date Model / Serial / Lot Romina Donisoral Sz 5 Mm - [id number] Implanted:Qty: 1 on 03/03/2020 by Juan Hurtado MD at OR [facility] Left: Knee EL : ORTHOPAEDICS 07/23/2024 [id number] / / [id number]-1 System Implant [employer] - [id number] Implanted:Qty: 1 on 08/07/2022 by Darwin Colon MD at OR [facility] Left: Shoulder [employer] 09/16/2025 AR-2600SB S-4 / / [id number] documented as of this encounter Visit Diagnoses [...] the patient have Health Care Power of Vacuum Frame Operator? No Full Code 03/03/2020 2:52 PM [...] Luis Armando Mixon Jr. Spouse Emergency Contact [email or web address] Care Teams Block Cableman Relationship Specialty Start Date End Date Devyn Balbuena MD [address] [place] [phone] PCP - General Family Medicine 08/11/22 documented as of this encounter
--- OUTSIDE RECORDS SUMMARY | 2023-09-14 15:17 | External Medical Summary | Summary of Care ---
Author Name Unknown Organization [facility] Address [address] [place] [address] Phone [phone] Care Team Providers Care Prescription Eyeglass Maker Name Role Phone Devyn Barksdale MD Primary Care Provider [phone] Reason for Visit * Reason Onset Date Comments Med Request 08/27/2023 Encounter Details Date Type Department Care Team ([facility] Contact Info) Description 08/27/2023 Telephone Family [address] [phone] Devyn Barksdale MD [address] [place] [address] Med Request Allergies Active Allergy Reactions [...] 09/14/2017 04/19/2020 Overview: DO NOT DELETE [facility] DETECT Study: Project # [id number], Underground Electrician: Jorden Cleaning, PhD. SUMMARY: Goal: Establish test [...] contact study staff at ; after hours Underground Electrician via the [facility] data processing operator . Please contact study team before resolving/deleting from patients problem list. Study phone number: [phone]. Diagnosis changed due to Research Module. Go to Snapshot for study details. Encounter for examination fo r normal comparison and control in clinical research program 09/14/2017 05/18/2022 Overview: DO NOT DELETE - [facility] Study: Project # [id number], Underground Electrician: Armando Woodard, MS, MPH. SUMMARY: Goal: Establish [...] contact study staff at ; after hours Underground Electrician via the [facility] data processing operator . - Please contact study team before resolving/deleting from patients problem list. Study phone number: [phone]. Diagnosis changed due to Research Module. Go [...] regarding this medication. Thank you, Cristal Dumas Loom Cleaner [facility] (Former[facility] Tele[facility]) [...] for further information. Thanks, Uche Jimenez, t Loom Cleaner [facility] ([facility] (formerly Tele[facility]). 08/27/2023,11:44 AM documented in this encounter Plan of Treatment Upcoming Encounters Date Type Department Care Team (Late st Contact Info) Description 09/04/2023 3:40 PM EST [address] [address] Jory Lamar PA-C [address] [place] [address] [place] [address] 10/01/2023 11:40 AM EST Telemedicine Urogynecology [facility] [address] [place] [address] Tramaine Day MD [address] [place] [address] 10/22/2023 3:40 PM EST Office Visit [facility] [address] [place] [phone] Devyn Barksdale MD [address] [place] [address] 10/24/2023 3:30 PM EST Office Visit Urogynecology [facility] [address] [place] [address] Tramaine Day MD [address] [place] [address] 02/14/2024 8:20 AM EDT Office Visit [address] [phone] Shanta Moore PA-C [address] [place] [address] Scheduled Procedures Name Priority Associated Diagnoses Date/Ti [...] this encounter Medical Devices Implanted Type Area Commercial Sales Consultant Device Identifier Shelf Expiration Date Model / Serial / Lot Restoris Mck Fermoral Sz 5 Mm - [id number] Implanted:Qty: 1 on 03/03/2020 by Juan Hurtado MD at OR [facility] Left: Knee EL : ORTHOPAEDICS 07/23/2024 [id number] / / 1M1R-1 System Implant [employer] - [id number] Implanted:Qty: 1 on 08/07/2022 by Darwin Colon MD at OR [facility] Left: Shoulder [employer] 09/16/2025 AR-2600SB S-4 / / [id number] documented as of this encounter Visit Diagnoses [...] the patient have Health Care Power of Brewer Helper? No Full Code 03/03/2020 2:52 PM 03/03/2020 [...] Luis Armando Mixon JrAmilcar Spouse Emergency Contact [email or web address] Care Teams Prescription Eyeglass Maker Relationship Specialty Start Date End Date Devyn Barksdale MD [address] [place] [address] PCP - General Family Medicine 08/11/22 documented as of this encounter
--- OUTSIDE RECORDS SUMMARY | 2023-09-14 15:17 | External Medical Summary ---
Author Name Unknown Address Unknown Organization K1G:LABORATORY [facility] - [address] [place] [phone] Laboratory Report Ordering Provider Test Date Status ANA AMEZCUA 09/04/2023 13:36:18 Final Observation Date Value Abnormality Reference (Units ) Status Magnesium 09/04/2023 13:36:18 2.1 1.5-2.6 (m g/dL) Final Performing Location [facility] [address] [facility] [phone]
--- OUTSIDE RECORDS SUMMARY | 2023-09-14 15:17 | External Medical Summary | Summary of Care ---
Demographics Address [address] [place] [address] Mobile Phone Email Address [email or web address] Email Address Preferred Language Bhutanese Marital Status Unknown Zoroastrian Affiliation Unknown Race White Ethnic Group Not or Lati no Author Name Unknown Organization [facility] Address [address] [place] [address] Phone [phone] Care Team Providers Care Social Worker Name Role Phone Devyn Barksdale MD Primary Care Provider [phone] Reason for Visit * Reason Onset Date Comments Med Request 05/29/2023 Encounter Details Date Type Department Care Team ([facility] Contact Info) Description 05/29/2023 Telephone Family [address] [address] Devyn Barksdale MD [address] [place] [address] Med Request Allergies Active Allergy Reactions [...] needed). 18 g 3 04/30/20 23 Active Estradiol 0.1 MG/GM Vaginal Cream (Estrace) Apply pea sized amount (0.5 gm) vaginally twice a week at bedtime 42.5 g 3 05/23/20 23 Active Inulin (METAMUCIL CLEAR & NATURAL) powder Take by mouth daily. 0 023 Discontinued(Mn dication List Clean Up) Diclofenac Sodium 1 % External Gel (Voltaren) [...] 1 05/15/20 22 023 Discontinued Nystatin-Triamci nolone 248499-6.1 UNIT/GM-% External Cream (Mycolog)Indicat ions:Intertrigo APPLY TOPICALLY [...] 5 g 1 01/23/20 23 023 Discontinued Myrbetriq 50 MG Oral Tablet Extended Release 24 Hour (Mirabegron ER) Take 1 Tablet by mouth in the morning. 30 Tablet 11 05/23/20 23 023 Discontinued(Me dication/Dose Changed) Atovaquone 750 MG/5ML Oral Suspension (Mepron)Indicati ons:Babesiasis Take 5 mL by mouth in the morning and 5 mL before bedtime. For 10 days. 100 mL 0 05/23/20 23 023 Discontinued Fluconazole 150 MG Oral Tablet (Diflucan)Indica tions:Thrush Take 1 Tablet by mouth once for 1 dose. 1 Tablet 0 05/30/20 23 023 documented as of this encounter (statuses as [...] 09/14/2017 04/19/2020 Overview: DO NOT DELETE [facility] DETECT Study: Project # [id number], Tile Erector: Jorden Cleaning, PhD. SUMMARY: Goal: Establish test [...] contact study staff at ; after hours Tile Erector via the [facility] turner machine operator . Please contact study team before resolving/deleting from patients problem list. Study phone number: [phone]. Diagnosis changed due to Research Module. Go to Snapshot for study details. Encounter for examination fo r normal comparison and control in clinical research program 09/14/2017 05/18/2022 Overview: DO NOT DELETE - [employer] DETECT Study: Project # [id number], Tile Erector: Armando Woodard, MS, MPH. SUMMARY: Goal: Establish [...] contact study staff at ; after hours Tile Erector via the [facility] turner machine operator . - Please contact study team before resolving/deleting from patients problem list. Study phone number: [phone]. Diagnosis changed due to Research Module. Go [...] Telephone Encounter - Devyn Barksdale MD - 05/30/2023 8:38 AM EDT Please call in the prescription to patients pharmacy and close encounter. Signed Prescriptions: Disp Refills Fluconazole 150 MG Oral Tablet (Diflucan) 1 Tabl*0 Sig: Take 1 Tablet by mouth once for 1 dose. Authorizing Provider: DEVYN BARKSDALE * Telephone Encounter - Patricia Agrawal LPN - 05/29/2023 3:10 PM EDT Pt called in to state she has been on meds prescribed and has developed a yeast infection , requesting med be called into [facility] documented in this encounter Plan of Treatment Upcoming Encounters Date Type Department Care Team ([facility] st Contact Info) Description 09/04/2023 3:40 PM EST Office Visit Dermatology[address] [address] Jory Lamar PA-C [address] [place] [address] [place] [address] 10/01/2023 11:40 AM EST Telemedicine Urogynecology [facility] [address] [place] [address] Tramaine Day MD [address] [place] [address] 10/22/2023 3:40 PM EST Office Visit [address] [phone] Devyn Barksdale MD [address] [place] [address] 10/24/2023 3:30 PM EST Office Visit Urogynecology [facility] [address] [place] [address] Tramaine Day MD [address] [place] [address] 02/14/2024 8:20 AM EDT Office Visit Family [facility] [address] [place] [address] Shanta Moore PA-C [address] [place] [address] Scheduled Procedures Name Priority Associated Diagnoses Date/Ti [...] this encounter Medical Devices Implanted Type Area Artificial Pearl Maker Device Identifier Shelf Expiration Date Model / Serial / Lot Restoris Mck Fermoral Sz 5 Mm - [id number] Implanted:Qty: 1 on 03/03/2020 by Juan Hurtado MD at OR [facility] Left: Knee EL : ORTHOPAEDICS 07/23/2024 [id number] / / [id number] System Implant [employer] - [id number] Implanted:Qty: 1 on 08/07/2022 by Darwin Colon MD at OR [facility] Left: Shoulder [employer] 09/16/2025 [id number] S-4 / / [id number] documented as of this encounter Visit Diagnoses [...] the patient have Health Care Power of Commercial Decorator? No Full Code 03/03/2020 2:52 PM 03/03/2020 [...] Healthcare Agent Relationship Communication Luis Armando Mixon . Spouse Emergency Contact [email or web address] Care Teams Social Worker Relationship Specialty Start Date End Date Devyn Barksdale MD [address] [place] [address] PCP - General Family Medicine 08/11/22 documented as of this encounter
--- OUTSIDE RECORDS SUMMARY | 2023-09-14 15:17 | External Medical Summary | Summary of Care ---
Author Name Unknown Organization [facility] Address [address] [place] [address] Phone [phone] Care Team Providers Care Housing Grant Analyst Name Role Phone Devyn Balbuena MD Primary Care Provider [phone] Encounter Details Date Type Department Care Team ([facility] Contact Info) Description 05/17/[address] [facility] [address] [place] [address] Devyn Balbuena MD [address] [place] [address] Allergies Active Allergy Reactions Criticality Noted Date [...] (as needed). 18 g 3 04/30/2023 Active documented as of this encounter (statuses [...] 04/19/2020 Overview: DO NOT DELETE [facility] DETECT Study: Project # [id number], Telephone Maintainer: Jorden Cleaning, PhD. SUMMARY: Goal: Establish test [...] contact study staff at ; after hours Telephone Maintainer via the [facility] carburizing furnace operator . Please contact study team before resolving/deleting from patients problem list. Study phone number: [phone]. Diagnosis changed due to Research Module. Go to Snapshot for study details. Encounter for examination fo r normal comparison and control in clinical research program 09/14/2017 05/18/2022 Overview: DO NOT DELETE - [employer] DETECT Study: Project # [id number], Telephone Maintainer: Armando Woodard, MS, MPH. SUMMARY: Goal: Establish [...] contact study staff at ; after hours Telephone Maintainer via the [facility] carburizing furnace operator . - Please contact study team before resolving/deleting from patients problem list. Study phone number: [phone]. Diagnosis changed due to Research Module. Go [...] Upcoming Encounters Date Type Department Care Team ([facility] st Contact Info) Description 09/04/2023 3:40 PM EST Office Visit [address] [address] Jory Lamar PA-C [address] [place] [address] [place] [address] 10/01/2023 11:40 AM EST Telemedicine Urogynecology [facility] [address] [facility] [place] [address] Tramaine Day MD [address] [place] [address] 10/22/2023 3:40 PM EST Office Visit [address] [phone] Devyn Balbuena MD [address] [place] [address] 10/24/2023 3:30 PM EST Office Visit Urogynecology [facility] [address] [facility] [place] [address] Tramaine Day MD [address] [place] [address] 02/14/2024 8:20 AM EDT Office Visit [address] [phone] Shanta Moore PA-C [address] [place] [address] Scheduled Procedures Name Priority Associated Diagnoses Date/Ti [...] this encounter Medical Devices Implanted Type Area Campus Administrator Device Identifier Shelf Expiration Date Model / Serial / Lot Restoris Mck Fermoral Sz 5 Mm - [id number] Implanted:Qty: 1 on 03/03/2020 by Juan Hurtado MD at OR [facility] Left: Knee EL : ORTHOPAEDICS 07/23/2024 [id number] / / [id number] System Implant [employer] - [id number] Implanted:Qty: 1 on 08/07/2022 by Darwin Colon MD at OR [facility] Left: Shoulder [employer] 09/16/2025 [id number] S-4 / / [id number] documented as of this encounter Advance Directives [...] the patient have Health Care Power of Calcine Furnace Tender? No Full Code 03/03/2020 2:52 PM 03/03/2020 [...] Relationship Healthcare Agent Relationship Communication Luis Armando [place] . Spouse Emergency Contact [email or web address] Care Teams Housing Grant Analyst Relationship Specialty Start Date End Date Devyn Balbuena MD [address] [place] [address] PCP - General Family Medicine 08/11/22 documented as of this encounter
[2023-09-14] MEDS ORDERED: SUGAMMADEX SODIUM 200 MG/2 ML VIAL IV ONE (15:18)
--- OUTSIDE RECORDS SUMMARY | 2023-09-14 15:18 | External Medical Summary | Summary of Care ---
Author Name Unknown Organization [facility] Address [address] [place] [address] Phone [phone] Care Team Providers Care Computer Game Tester Name Role Phone Devyn Balbuena MD Primary Care Provider [phone] Reason for Visit * Reason Comments Urinary Tract Infection Symptoms Encounter Details Date Type Department Care Team (Late st Contact Info) Description 07/17/2023 9:50 AM EDT [facility] [place] [address] [place] [address] Gogo Arrington CRNP [address] [place] [address] Acute cystitis with hematuria*; Dysuria; Yeast vaginitis Allergies Active Allergy Reactions Criticality Noted Date Comments Levofloxacin Nausea/vomiting Medium 10/16/2018 Molds & Smuts Other (Please comment) Medium 01/23/2019 Congestion and sore throat Poison Germania Extract 05/16/2023 documented as of this encounter (statuses as of 07/17/2023) Medications Medication Sig Dispensed Refills Start Date [...] Take by mouth . 0 Acti ve Omeprazole 20 MG Oral Capsule Delayed Release (PriLOSEC)Indicatio ns:Dysphagia, unspecified type TAKE 1 CAPSULE BY MOUTH DAILY 1 HOUR BEFORE THE FIRST MEAL OF THE DAY 90 Capsule 3 06/26/2022 Active Cetirizine HCl 10 MG Oral Capsule [...] the morning. 30 Tablet 11 06/26/2023 Active Nitrofurantoin Monohyd Macro 100 MG Oral Capsule (Macrobid)Indicatio ns:Acute cystitis with hematuria Take 1 Capsule by mouth in the morning and 1 Capsule before bedtime. Do all this for 7 days. With food until gone. 14 Capsule 0 07/17/2023 07/24/2023 Active Phenazopyridine HCl 200 MG Oral Tablet (Pyridium)Indicatio ns:Dysuria Take 1 Tablet by mouth 3 times a day as needed for Pain, Mild. After meals for pain with urination 6 Tablet 0 07/17/2023 Active Fluconazole 150 MG Oral Tablet (Diflucan)Indicatio ns:Yeast vaginitis Take 1 Tablet by mouth once for 1 dose. 1 Tablet 0 07/17/2023 07/17/2023 Active documented as of this encounter (statuses as of 07/17/2023) Active Problems Problem Noted Date Diagnosed Date [...] as of this encounter (statuses as of 07/17/2023) Resolved Problems Problem Noted Date Diagnosed Date Resolved Date ADVANCE DIRECTIVE INFORMATION 12/13/2017 10/06/2019 Overview: Pt does have a living will Encounter for examination fo r normal comparison and control in clinical research program 09/14/2017 04/19/2020 Overview: DO NOT DELETE [facility] DETECT Study: Project # [id number], Ophthalmic Nurse: Jorden Cleaning, PhD. SUMMARY: Goal: Establish test [...] contact study staff at ; after hours Ophthalmic Nurse via the [facility] quantometer operator . Please contact study team before resolving/deleting from patients problem list. Study phone number: [phone]. Diagnosis changed due to Research Module. Go to Snapshot for study details. Encounter for examination fo r normal comparison and control in clinical research program 09/14/2017 05/18/2022 Overview: DO NOT DELETE - [facility] Study: Project # [id number], Ophthalmic Nurse: Armando Woodard, MS, MPH. SUMMARY: Goal: Establish [...] contact study staff at ; after hours Ophthalmic Nurse via the [facility] quantometer operator . - Please contact study team before resolving/deleting from patients problem list. Study phone number: [phone]. Diagnosis changed due to Research Module. Go to SDI-Solution for study details. Hypertension 04/09/2017 Pneumonia 07/25/2017 Hay fever 08/10/2018 Hx of food allergy 8 Leukocytosis 08/10/2018 Overview: work up negative Urinary, incontinence, stress female 02/10/2015 Asthma, mild persistent 03/18 documented as of this encounter (statuses as of 07/17/2023) Immunizations Name Administration Dates Next Due COVID-19 [...] Sign Reading Time Taken Comments Blood Pressure 128/76 07/17/2023 10:03 AM EDT Pulse 72 07/17/2023 10:03 AM EDT Temperature 36.1 C (96.9 F) 07/17/2023 10:03 AM E DT Respiratory Rate 18 07/17/2023 10:03 AM EDT Oxygen Saturation 97% 07/17/2023 10:03 AM EDT Inhaled Oxygen Concentration - - Weight - [...] or making decisions? (5 years old or older No 03/03/2020 documented as of this encounter Progress Notes * Gogo Arrington CRNP - 07/17/2023 10:01 AM EDT [facility] [place] [address] [place] [id number] [email or web address] Nursing Notes: Robinson Bauman LPN 07/17/23 1004 Sign at exiting of workspace Marta Mixon is a 73 year old female who presents to walk-in clinic today complaining of Chief Complaint Patient presents with Urinary Tract Infection Symptoms Main Symptoms:Urgency, Hurts real low Cause: unknown How lon days Tried: Diflucan Pt accompanied by: self Marta Mixon is a 73 year old female who presents with urinary tract symptoms. Patient was accompanied by Self. HPI: Severity of Symptoms: Minimal Modifying Factors (what was done since onset of Symptoms): diflucan Timing (How often does it occur): 2 days ROS: Constitutional symptoms: no fever, no weight loss, no weakness, no fatigue, and no recent illness Pulmonary ROS: No cough, sputum, or hemoptysis, No wheezing, No shortness of breath, and No recent change in breathing Cardiovascular ROS: No chest pain, No shortness of breath, and No dyspnea on exertion Gastrointestional ROS: No change in bowel habits, No significant heartburn, No significant change in appetite, No nausea, vomiting, diarrhea, or constipation, and Positive for suprapubic abdominal pain Urinary symptoms: DYSURIA, BURNING, URGENCY, and PRESSURE Symptom duration of 2 day(s) Reports fluid intake is adequate HISTORY: Past Medical History: Diagnosis Date Asthma, mild persistent Benign colon polyp 01/27/201902/02 tubular adenoma 11/28 TUBULAR ADENOMA Diverticulosis 12/03/2013 COLONOSCOPY DJD (degenerative joint disease) of knee Endometriosis Hay fever Hx of food allergy Hyperlipidemia Hypertension Leukocytosis work up negative Osteopenia Pneumonia Sarcoid Urinary, incontinence, stress female Past Surgical History: Procedure Laterality Date OLIVER HERNANDES W/ROTATOR CUFF Right 03/03/2019 ARTHROSCOPY SHOULDER ROTATOR CUFF performed by Darwin Colon MD at OR [facility] OLIVER HERNANDES W/ROTATOR CUFF Left 08/07/2022 ARTHROSCOPY SHOULDER ROTATOR CUFF performed by Darwin Colon MD at OR [facility] ARTHROPLASTY KNEE CONDYLE/PLATEAU, MEDIAL OR LATERAL Bilateral 03/03/2020 ROBOTIC ARTHROPLASTY KNEE CONDYLE AND PLATEAU MEDIAL OR LATERAL performed by Juan Hurtado MD at OR [facility] BIOPSY OF BREAST, OPEN Breast Biopsy, Benign Disease, bilateral, benign BREAST LESION,OTHER,EXCISION COLONOSCOPY 12/03/2013 DIVERTICULOSIS & TUBULAR ADENOMA COLONOSCOPY, DIAGNOSTIC (RECTUM) 01/27/2019 adenomatous polyps, repeat 3 yrs/COLONOSCOPY FLEXIBLE PROXIMAL DIAGNOSTIC performed by Douglas Demarco MD at ENDOSCOPY [facility] COLONOSCOPY, DIAGNOSTIC (RECTUM) 10/27/2022 benign adenomatous polyp, diverticulosis, repeat 3 yrs / COLONOSCOPY FLEXIBLE PROXIMAL DIAGNOSTIC performed by Douglas Demarco MD at ENDOSCOPY [facility] COLPOPEXY,VAG,PERITONEAL APPROACH N/A 10/18/2015 COLPOPEXY VAGINAL INTRA PERITONEAL APPROACH performed by Shara Blanco MD at [facility] CORRECTION OF BLADDER DEFECT 2004 suspension CORRECTION OF BLADDER DEFECT 2008 mesh. robot. Jena CYSTOSCOPY N/A 06/19/2015 CYSTOURETHROSCOPY performed by Shara Blanco MD at [facility] CYSTOSCOPY N/A 10/18/2015 CYSTOURETHROSCOPY performed by Shara Blanco MD at [facility] EGD, FLEXIBLE, DIAGNOSTIC 12/03/2013 NORMAL INFORMATION mini face lift REMOVAL OF VAGINAL LESION N/A 06/19/2015 EXCISION OF VAGINAL CYST OR TUMOR performed by Shara Blanco MD at [facility] REMOVE TONSILS & ADENOIDS, UNDER 12 T & A, age<12 REPAIR OF VAGINA N/A 10/18/2015 COMBINED ANTEROPOSTERIOR COLPORRHAPHY performed by Shara Blanco MD at OR [facility] REPAIR RUPTURED ROTATOR CUFF, ACUTE 2011 Rotator cuff repair, right VAGINAL HYSTERECTOMY N/A 10/18/2015 VAGINAL HYSTERECTOMY performed by Shara Blanco MD at [facility] Social History Socioeconomic History Marital status: Spouse name: Not on file Number of children: Not on file Years of education: Not on file Highest education level: Not on file Occupational History Not on file Tobacco Use Smoking status: Never Smokeless tobacco: Never Vaping Use Vaping Use: Never used Substance and Sexual Activity Alcohol use: Not Currently Comment: wine occ Drug use: No Sexual activity: Yes Partners: Male Comment: Other Topics Concern Not on file Social History Narrative Not on file Social Determinants of Health Financial Resource Strain: Not on file Food Insecurity: No Food Insecurity (03/27/2022) Hunger Vital Sign Worried About Running Out of Food in the Last Year: Never true Ran Out of Food in the Last Year: Never true Transportation Needs: Not on file Physical Activity: Not on file Stress: Not on file Social Connections: Not on file Intimate Partner Violence: Not on file Housing Stability: Not on file Current Outpatient Medications Medication Sig Dispense Refill B COMPLEX 100 PO TABS one daily MAGNESIUM 250 MG PO TABS one daily VITAMIN D3 1000 UNITS PO CAPS one daily CALCIUM 1000 + D 1000-800 MG-UNIT PO TABS one tablet daily FIBER COMPLETE PO TABS Take by mouth 1 Tablet daily . Inulin (METAMUCIL CLEAR & NATURAL) powder Take by mouth daily. Coenzyme Q10 10 MG Capsule Take 1 Capsule by mouth in the morning. Ascorbic Acid (VITAMIN C) 500 MG chewable tablet Take 1 Tablet by mouth in the morning. Multivitamin Women 50+ Oral Tablet Take by mouth . Omeprazole 20 MG Oral Capsule Delayed Release (PriLOSEC) TAKE 1 CAPSULE BY MOUTH DAILY 1 HOUR BEFORE THE FIRST MEAL OF THE DAY 90 Capsule 3 Cetirizine HCl 10 MG Oral Capsule Take [...] a week at bedtime 42.5 g 3 Solifenacin Succinate 10 MG Oral Tablet (VESIcare) Take 1 Tablet by mouth in the morning. 30 Ysmihv37 Nitrofurantoin Monohyd Macro 100 MG Oral Capsule (Macrobid) Take 1 Capsule by mouth in the morning and 1 Capsule before bedtime. Do all this for 7 days. With food until gone. 14 Capsule 0 Phenazopyridine HCl 200 MG Oral Tablet (Pyridium) Take 1 Tablet by mouth 3 times a day as needed for Pain, Mild. After meals for pain with urination 6 Tablet 0 Fluconazole 150 MG Oral Tablet (Diflucan) Take 1 Tablet by mouth once for 1 dose. 1 Tablet 0 No current facility-administered medications for this visit. Review of patient's allergies indicates: Allergen Reactions Levofloxacin Nausea/vomiting Molds & Smuts Other (Please comment) Congestion and sore throat Poison Germania Extract Family History Problem Relation Age of Onset Breast Cancer Mother Results for orders placed or performed in visit on 07/17/23 URINALYSIS, POINT OF CARE (ENTER/EDIT) Result Value Ref Range Color, Urine Yellow Yellow or Light Yellow Clarity, Urine Cloudy Clear Glucose, Urine Negative Negative mg/dL Bilirubin, Urine Negative Negative Ketone, Urine Negative Negative mg/dL Specific [place], Urine 1.010 1.003 - 1.030 Blood, Urine Large Negative pH, Urine 6.0 5.0 - 7.5 units Protein, Urine Negative Negative mg/dL Urobilinogen, Urine 0.2 0.2 - 1.0 mg/dL Nitrite, Urine Negative Negative Esterase, Urine Large Negative *Note: Due to a large number of results and/or encounters for the requested time period, some results have not been displayed. A complete set of results can be found in Results Review. OBJECTIVE: BP 128/76 (BP Site: Right Arm, BP Position: Sitting, BP Cuff Size: Regular) | Pulse 72 | Temp 36.1 C (96.9 F) | Resp 18 | SpO2 97% Wt Readings from Last 1 Encounters: 06/06/23 83 kg (183 lb) General appearance: awake, alert, no apparent distress Abdominal Exam: back: NEG CVA tenderness and abd: +suprapubic tenderness to palpation, no R/R/G, +BS Respiratory: clear to auscultation, no rhonchi, no wheezes, and no crackles Heart: regular rate, regular rhythm, no murmurs , and no rubs Assessment/Plan: Acute cystitis with hematuria (Primary) - CULTURE, URINE, QUANTITATIVE - Nitrofurantoin Monohyd Macro 100 MG Oral Capsule (Macrobid); Take 1 Capsule by mouth in the morning and 1 Capsule before bedtime. Do all this for 7 days. With food until gone. Dysuria - URINALYSIS, POINT OF CARE (ENTER/EDIT) - Phenazopyridine HCl 200 MG Oral Tablet (Pyridium); Take 1 Tablet by mouth 3 times a day as neededfor Pain, Mild. After meals for pain with urination Yeast vaginitis - Fluconazole 150 MG Oral Tablet (Diflucan); Take 1 Tablet by mouth once for 1 dose. Reviewed medication regime and side effects Reviewed dipstick results with patient in office- will send culture Encourage fluid intake Practice good hand hygiene OTC tylenol/ibuprofen per box instructions for comfort Monitor for signs/symptoms of infection: fever, n/v, SOB, CP, sweats, chills Patient stated understanding and had no other issues at this time Follow Up: Return if symptoms worsen or fail to improve. ERIC Diaz [facility] [place] [id number] documented in this encounter Nursing Notes * Robinson Bauman LPN - 07/17/2023 10:02 AM EDT Marta Mixon is a 73 year old female who presents to walk-in clinic today complaining of Chief Complaint Patient presents with Urinary Tract Infection Symptoms Main Symptoms:Urgency, Hurts real low Cause: unknown How lon days Tried: Diflucan Pt accompanied by: self documented in this encounter Plan of Treatment Upcoming Encounters Date Type Department Care Team ([facility] Contact Info) Description 07/17/2023 3:40 PM EDT Office Visit Dermatology [address] [phone] Chalo Sinclair PA-C [address] [place] [address] [phone] 08/16/2023 8:20 AM EST Office Visit [address] [phone] Shanta Moore PA-C [address] [place] [phone] 09/04/2023 3:40 PM EST Office Visit [address] [address] Jory Lamar PA-C [address] [place] [address] [address] [phone] 10/01/2023 11:40 AM EST Telemedicine Urogynecology [facility] [address] [facility] [place] [address] Tramaine Day MD [address] [place] [address] 10/22/2023 3:40 PM EST Office Visit [address] [phone] Devyn Balbuena MD [address] [place] [phone] 10/24/2023 3:30 PM EST Office Visit Urogynecology [facility] [address] [facility] [place] [phone] Tramaine Day MD [address] [place] [address] Pending Results Name Type Priority Associated Diagnoses Date /Time CULTURE, URINE, QUANTITATIVE Lab Routine Acute cystitis with hematuria 07/17/2023 10:06 AM EDT Scheduled Procedures Name Priority Associated Diagnoses Date/Ti [...] encounter Medical Devices Implanted Type Area Supervisor Belt And Link Assembly Device Identifier Shelf Expiration Date Model / Serial / Lot Restoris Mck Fermoral Sz 5 Mm - [id number] Implanted:Qty: 1 on 03/03/2020 by Juan Hurtado MD at OR [facility] Left: Knee EL : OR[employer] 07/23/2024 [id number] / / [id number] System Implant [employer] - [id number] Implanted:Qty: 1 on 08/07/2022 by Darwin Colon MD at OR [facility] Left: Shoulder [employer] 09/16/2025 [id number] / / [id number] documented as of this encounter Procedures Procedure Name Priority Date/Time Associated Diagnosis Comments URINALYSIS, POINT OF CARE (ENTER/EDIT) Routine 07/17/2023 Dysuria documented in this encounter Results * (ABNORMAL) URINALYSIS, POINT OF CARE (ENTER/EDIT) (07/17/2023) Color, Urine Yellow Yellow or Light Yellow Clarity, Urine Cloudy Clear Glucose, Urine Negative Negative mg/dL Bilirubin, Urine Negative Negative Ketone, Urine Negative Negative mg/dL Specific [place], Urine 1.010 1.003 - 1.030 Blood, Urine Large Negative pH, Urine 6.0 5.0 - 7.5 units Protein, Urine Negative Negative mg/dL Urobilinogen, Urine 0.2 0.2 - 1.0 mg/dL Nitrite, Urine Negative Negative Esterase, Urine Large Negative Urine 07/17/2023 [facility] POINT OF CARE TEST ENTER/EDIT ORDERABLES documented in this encounter Visit Diagnoses Diagnosis Acute cystitis with hematuria- Primary Acute cystitis Dysuria Yeast vaginitis Candidiasis of vulva and vagina documented in this encounter Advance Directives Latest Code Status on File Code Status Date Activated Date Inactivated Comments Full Code 08/07/2022 11:11 AM 08/07/2022 6:29 PM T his order reflects the patients wishes and were [...] the patient have Health Care Power of Courtesy Car Driver? No Full Code 03/03/2020 2:52 PM 03/03/2020 [...] Luis Armando Mixon JrAmilcar Spouse Emergency Contact [email or web address] Care Teams Computer Game Tester Relationship Specialty Start Date End Date Devyn Balbuena MD [address] [place] [id number] PCP - General Family Medicine 08/11/22 documented as of this encounter"
--- OUTSIDE RECORDS SUMMARY | 2023-09-14 15:18 | External Medical Summary | Summary of Care ---
Author Name Unknown Organization [facility] Address [address] [place] [address] Phone [phone] Care Team Providers Care Industrial Engineering Name Role Phone Devyn Balbuena MD Primary Care Provider [phone] Reason for Visit * Reason Onset Date Comments Medication Refill 08/01/2023 Encounter Details Date Type Department Care Team (Late st Contact Info) Description 08/01/[address] [phone] Shanta Moore PA-C [address] [place] [id number] Dysphagia, unspecified type Allergies Active Allergy Reactions Criticality Noted Date Comments Levofloxacin Nausea/vomiting Medium 10/16/2018 Molds & Smuts Other (Please comment) Medium 01/23/2019 Congestion and sore throat Poison Germania Extract 05/16/2023 documented as of this encounter (statuses as of 08/02/2023) Medications Medication Sig Dispensed Refills Start Date [...] the morning. 30 Tablet 11 06/26/2023 Active Phenazopyridine HCl 200 MG Oral Tablet (Pyridium)Indicati ons:Dysuria Take 1 Tablet by mouth 3 times a day as needed for Pain, Mild. After meals for pain with urination 6 Tablet 0 07/17/2023 Active Omeprazole 20 MG Oral Capsule Delayed Release (PriLOSEC)Indicati ons:Dysphagia, unspecified type Take 1 Capsule by mouth in the morning. 1 hour before the first meal of the day. 90 Capsule 3 08/02/2023 Active Omeprazole 20 MG Oral Capsule Delayed Release (PriLOSEC)Indicati ons:Dysphagia, unspecified type Take 1 Capsule by mouth in the morning. 1 hour before the first meal of the day. 90 Capsule 3 08/01/2023 3 Discontinue d(Patient preference/ discontinua tion) documented as of this encounter (statuses as of 08/02/2023) Active Problems Problem Noted Date Diagnosed Date [...] as of this encounter (statuses as of 08/02/2023) Resolved Problems Problem Noted Date Diagnosed Date Resolved Date ADVANCE DIRECTIVE INFORMATION 12/13/2017 10/06/2019 Overview: Pt does have a living will Encounter for examination fo r normal comparison and control in clinical research program 09/14/2017 04/19/2020 Overview: DO NOT DELETE [facility] DETECT Study: Project # [id number], Pilot Plant Research Technician: Jorden Cleaning, PhD. SUMMARY: Goal: Establish [...] contact study staff at ; after hours Pilot Plant Research Technician via the [facility] laundry press operator . Please contact study team before resolving/deleting from patients problem list. Study phone number: [phone]. Diagnosis changed due to Research Module. Go to Snapshot for study details. Encounter for examination fo r normal comparison and control in clinical research program 09/14/2017 05/18/2022 Overview: DO NOT DELETE - [facility]AN Study: Project # [id number], Pilot Plant Research Technician: Armando Woodard, MS, MPH. SUMMARY: Goal: [...] contact study staff at ; after hours Pilot Plant Research Technician via the [facility] laundry press operator . - Please contact study team before resolving/deleting from patients problem list. Study phone number: [phone]. Diagnosis changed due to Research Module. Go to Snapshot for study details. Hypertension 04/09/2017 Pneumonia 07/25/2017 Hay fever 08/10/2018 Hx of food allergy 8 Leukocytosis 08/10/2018 Overview: work up negative Urinary, incontinence, stress female 02/10/2015 Asthma, mild persistent 03/18 documented as of this encounter (statuses as of 08/02/2023) Immunizations Name Administration Dates Next Due COVID-19 [...] encounter Miscellaneous Notes * Telephone Encounter - Carissa Haq, [facility] - 08/02/2023 12:00 PM EST Signed Prescriptions: Disp Refills Omeprazole 20 MG Oral Capsule Delayed Rele*90 Cap*3 Sig: Take 1 Capsule by mouth in the morning. 1 hour before the first meal of the day.Authorizing Provider: SHANTA MOORE User: CARISSA HAQ * Telephone Encounter - Carissa Haq [facility] - 08/02/2023 11:59 AM EST Rerouted as requested. Thank you, Carissa Haq, PharmD Clinical Pharmacist [facility] ([facility]) (formerly Telepharmacy) 08/02/23 11:59 AM [phone] * Telephone Encounter - Roger Alondra, boring inspector - 08/01/2023 3:34 PM EST Please reroute Rx to [id number] [address] Pending Prescriptions: Disp Refills Omeprazole 20 MG Oral Capsule Delayed Rel*90 Cap*3 Sig: Take 1 Capsule by mouth in the morning. 1 hour before the first meal of the day. Last Visit: 05/16/2023 (in office), 12/10/2020 (telemedicine) 08/16/2023 If no future appointments scheduled, and last appointment is greater than a year ago, please schedule patient for a follow-up appointment Last date the medication was ordered: 08/01/2023 Patient Phone Numbers Labs: Lab Results Component Value Date/Time CREAT 0.7 11/09/2022 10:03 AM CREAT 0.9 06/29/2020 09:58 AM POTASSIUM 4.3 11/09/2022 10:03 AM POTASSIUM 3.9 04/13/2022 10:52 AM POTASSIUM 4.2 06/29/2020 09:58 AM TSH 1.86 12/07/2020 09:28 AM LDLCALC 129 05/16/2023 10:24 AM LDLCALC 118 11/07/2018 07:32 AM LDLDIRECT NOT APPLICABLE 04/02/2017 08:03 AM LDLCHOL 136.50 (A) 05/05/2013 12:00 AM ALT 21 11/09/2022 10:03 AM ALT 33 06/29/2020 09:58 AM HGBA1C 5.4 02/25/2020 06:37 PM documented in this encounter Plan of Treatment Upcoming Encounters Date Type Department Care Team ([facility] st Contact Info) Description 08/16/2023 8:20 AM EST Office Visit [address] [phone] Shanta Moore PA-C [address] [place] [address] 09/04/2023 3:40 PM EST Office Visit [address] [address] Jory Lamar PA-C [address] [place] [address] [place] [address] 10/01/2023 11:40 AM EST Telemedicine [facility] [address] [facility] [place] [address] Tramaine Day MD [address] [place] [address] 10/22/2023 3:40 PM EST Office Visit [address] [phone] Devyn Balbuena MD [address] [place] [address] 10/24/2023 3:30 PM EST Office Visit Urogynecology [facility] [address] [facility] [place] [phone] Tramaine Day MD [address] [place] [address] Scheduled Procedures Name Priority Associated Diagnoses Date/Ti me COLONOSCOPY FLEXIBLE PROXIMAL DIAGNOSTIC Recall History of colon polyps Health Maintenance Due Date Last Done Comments Depression Screening 03/27/2023 03/27/2022 Mammogram 10/02/2023 10/02/2022, 12/10/2020, 04/15/2020, Additional history exists DXA Scan 10/24/2023 [...] this encounter Medical Devices Implanted Type Area Contract Mail Carrier Device Identifier Shelf Expiration Date Model / Serial / Lot Restoris Mck Fermoral Sz 5 Mm - [id number] Implanted:Qty: 1 on 03/03/2020 by Juan Hurtado MD at OR [facility] Left: Knee EL : ORTHOPAEDICS 07/23/2024 [id number] / / [id number] System Implant Speedbridge - [id number] Implanted:Qty: 1 on 08/07/2022 by Darwin Colon MD at OR [facility] Left: Shoulder [employer] 09/16/2025 AR-[id number] S-4 / / [id number] documented as of this encounter Visit Diagnoses Diagnosis Dysphagia, unspecified type documented in this encounter Advance Directives Latest [...] the patient have Health Care Power of Dust Collector Treater? No Full Code 03/03/2020 2:52 PM 03/03/2020 [...] Luis Armando Mixon . Spouse Emergency Contact [email or web address] Care Teams Industrial Engineering Relationship Specialty Start Date End Date Devyn Balbuena MD [address] [place] [address] PCP - General Family Medicine 08/11/22 documented as of this encounter
--- OUTSIDE RECORDS SUMMARY | 2023-09-14 15:18 | External Medical Summary ---
Author Name Unknown Address Unknown Organization [id number]:[facility] - [address] [facility] [address] Laboratory Report Ordering Provider Test Date Status MARLENE MCCONNELL 07/17/2023 10:06:33 Final <10,000 colonies/ml mixed no rmal gwyn Observation Date Value Abnormality Reference (Units ) Status Bacteria identified in Specimen by Culture 07/17/2023 10:06:33 [id number]^ESCHE RICHIA COLI Abnormal Final 10,000 to 100,000 colonies/m L Escherichia coli Performing Location LABORATORY C - [address] [place] [address] Ordering Provider Test Date Status MARLENE MCCONNELL 07/17/2023 10:06:33 Final Observation Date Value Abnormality Reference (Units ) Status Ampicillin 07/17/2023 10:06:33 <=2 Susceptible Final Cefazolin 07/17/2023 10:06:33 <=4 Susceptible Final Cefepime susceptibility 07/17/2023 10:06:33 <=1 Susceptible Final Ceftriaxone suceptibility 07/17/2023 10:06:33 <=1 Susceptible Final Ciprofloxacin 07/17/2023 10:06:33 <=0.25 Susceptible Final Due to serious side effects, the FDA has advised against using Ciprofloxacin to treat uncomplicated UTIs and respiratory tract infections unless there are no alternative treatment options. Gentamicin susceptibility 07/17/2023 10:06:33 <=1 Susc eptible Final Nitrofurantoin susceptibility 07/17/2023 10:06:33 <=16 Susceptible Final Piperacillin + Tazobactamsusceptibility 07/17/2023 10:06:33 <=4 Susceptible Final TMP-SMZ susceptibility 07/17/2023 10:06:33 <=20 Suscept ible Final Test: Culture, Urine, Quanti tative
Specimen Source: Urine, Clean Catch
Specimen Type: Urine
Specimen Date: 07/17/2023 10:06 AM
Result Date: 07/19/2023 1:20 PM
Result Status: Final result
Abnormal: Yes
Resulting Lab: [facility]
[address]
[facility] [address]

CULTURE

10,000 to 100,000 colonies/mL Escherichia coli (Abnormal)

<10,000 colonies/ml mixed normal gwyn

SUSCEPTIBILITY

Escherichia coli
METHOD MICROBROTH DILUTIONS

AMPICILLIN <=2 Susceptible
CEFAZOLIN <=4 Susceptible
CEFEPIME <=1 Susceptible
CEFTRIAXONE <=1 Susceptible
CIPROFLOXACIN <=0.25 Susceptible [1]
GENTAMICIN <=1 Susceptible
NITROFURANTOIN <=16 Susceptible
PIPERACILLIN TAZOBACTAM <=4 Susceptible
TRIMETH/SULFAMETHOXAZOLE <=20 Susceptible

[1] Due to serious side effects, the FDA has advised against using
Ciprofloxacin to treat uncomplicated UTIs and respiratory tract infections
unless there are no alternative treatment options.

null Performing Location [facility] - [address] [facility] [address]
--- OUTSIDE RECORDS SUMMARY | 2023-09-14 15:18 | External Medical Summary | Summary of Care ---
Author Name Unknown Organization [facility] Address [address] [place] [address] Phone [phone] Care Team Providers Care Television Servicer Name Role Phone Devyn Balbuean MD Primary Care Provider [phone] Reason for Visit * Reason Onset Date Comments Medication Question 06/18/2023 Encounter Details Date Type Department Care Team Description 06/18/2023 Telephone Urogynecology [facility] [address], [place] [phone] [facility]amaine Day MD [address] [facility] [address] Medication Question Allergies Active Allergy Reactions Severity Noted Date Comments Levofloxacin Nausea/vomiting Medium 10/16/2018 Molds & Smuts Other (Please comment) Medium 01/23/2019 Congestion and sore throat Poison Germania Extract 05/16/2023 documented as of this encounter (statuses as of 06/19/2023) Medications Medication Sig Dispensed Refills Start Date [...] Capsule Delayed Release (PriLOSEC)Indication s:Dysphagia, unspecified type TAKE 1 CAPSULE BY MOUTH [...] at bedtime 42.5 g 3 05/23/2023 Active Myrbetriq 50 MG Oral Tablet Extended Release 24 Hour (Mirabegron ER) Take 1 Tablet by mouth in the morning. 30 Tablet 11 05/23/2023 Active documented as of this encounter (statuses as of 06/19/2023) Active Problems Problem Noted Date Chronic left shoulder pain 05/31/2022 Postoperative anemia due to acute blood loss 03/04/2020 Status post total bilateral knee replace ment 03/03/2020 Seasonal allergic rhinitis due to pollen 08/29/2018 Mild persistent asthma without complicat ion 04/09/2017 Gastroesophageal reflux disease without esophagitis 10/05/2016 Uterovaginal prolapse 10/18/2015 DDD (degenerative disc disease), cervica l 10/21/2014 Hyperlipidemia Sarcoid DJD (degenerative joint disease) of knee documented as of this encounter (statuses as of 06/19/2023) Resolved Problems Problem Noted Date Resolved Date ADVANCE DIRECTIVE INFORMATION 12/13/2017 Overview: Pt does have a living will Encounter for examination fo r normal comparison and control in clinical research program 09/14/2017 04/19/2020 Overview: DO NOT DELETE [facility] DETECT Study: Project # [id number], Host Coordinator: Jorden Cleaning, PhD. SUMMARY: Goal: Establish test [...] contact study staff at ; after hours Host Coordinator via the [facility] hospital magnesium mill operator . Please contact study team before resolving/deleting from patients problem list. Study phone number: [phone]. Diagnosis changed due to Research Module. Go to Snapshot for study details. Encounter for examination fo r normal comparison and control in clinical research program 09/14/2017 05/18/2022 Overview: DO NOT DELETE - [facility] DETECT Study: Project # [id number], Host Coordinator: Armando Woodard, MS, MPH. SUMMARY: Goal: Establish [...] contact study staff at ; after hours Host Coordinator via the [facility] hospital magnesium mill operator . - Please contact study team before resolving/deleting from patients problem list. Study phone number: [phone]. Diagnosis changed due to Research Module. Go to Snapshot for study details. Hypertension 04/09/2017 Pneumonia 07/25/2017 Hay fever 08/10/2018 Hx of food allergy 08/10/2018 Leukocytosis 08/10/2018 Overview: work up negative Urinary, incontinence, stress female 02/10/2015 Asthma, mild persistent 04/09/20 17 documented as of this encounter (statuses as of 06/19/2023) Immunizations Name Administration Dates Next Due COVID-19 [...] 0.6 oz pur e alcohol) wine occ Food Insecurity Answer Date Recorded Within the past 12 months, y ou worried that your food would run out before you got money to buy more. Never true 03/27/2022 Within the past 12 months, t he food you bought just didn't last and you didn't have money to get more. Never true 03/27/2022 Sex Assigned at Date Recorded Female 12/26/2018 11:49 AM EDT Job Start Date Occupation Industry [...] encounter Miscellaneous Notes * Telephone Encounter - Martine Naranjo RN - 06/18/2023 8:12 AM EDT Patient called to discuss an issue that she has had lump/bumps forming on her legs that start off red and then it bruises. She also notes swelling at night that she had not had before her visit 05/23. She was started on Estrogen cream and switched to myrbetriq 50 mg. She is concerned that the estrogen cream could be causing this. I advised that I would notify Dr. Day. documented in this encounter Plan of Treatment Upcoming Encounters Date Type Specialty Care Team Description 06/26/2023 Office Visit Gynecology Urology Tramaine Day MD [address] [place] [address] Nurse Tommy Alonso [address] [place] [address] 07/16/2023 Office Visit Ophthalmology Andres Lemos, [address] [place] [address] 07/17/2023 Office Visit Dermatology Chalo Sinclair PA-C [address] [place] [phone] 08/16/2023 Office Visit Family Medicine Shanta Moore PA-C [address] [place] [address] 09/04/2023 Office Visit Dermatology Jory Lamar PA-C [address] [place] [address] [place] [address] 10/22/2023 Office Visit Family Medicine Devyn Balbuena MD [address] [facility] [place] [address] Scheduled Procedures Name Priority Associated Diagnoses Date/Ti me COLONOSCOPY FLEXIBLE PROXIMAL DIAGNOSTIC Recall History of colon polyps Health Maintenance Due Date Last Done Comments Depression Screening 03/27/2023 03/27/2022 COVID-19 Vaccine ( season) 2023 07/28/2022, 02/09/2022, 08/08/2021, Additional history exists Mammogram 10/02/2023 10/02/2022, 10/2020, 04/15/2020, Additional history [...] Completed , 07/10/2022, 05/30/2021, Additional history exists GARDASIL-HPV IMMUNIZATION SERIES Aged Out No longer eligible based on patient's age to complete this topic Hepatitis B Aged Out No longer eligi ble based on patient's age to complete this topic MENINGOCOCCAL (MENACTRA/MENVEO) Aged Out No longer eligible based on patient's age to complete this topic documented as of this encounter Medical Devices Implanted Type Area Jointer Operator Device Identifier Shelf Expiration Date Model / Serial / Lot Restoris Rigobertok Jewelsoral Sz 5 Mm - [id number] Implanted:Qty: 1 on 03/03/2020 by Juan Hurtado MD at OR [facility] Left: Knee EL : ORTHOPAEDICS 07/23/2024 [id number] / / [id number]-1 System Implant [employer] - [id number] Implanted:Qty: 1 on 08/07/2022 by Darwin Cooln MD at OR [facility] Left: Shoulder [employer] 09/16/2025 AR-2600SB S-4 / / [id number] documented as of this encounter Advance Directives [...] the patient have Health Care Power of Wire Hanger? No Full Code 03/03/2020 2:52 PM 03/03/2020 [...] Luis Armando Binghamkamilla Car Spouse Emergency Contact [email or web address] Care Teams Television Servicer Relationship Specialty Start Date End [place] [address] PCP - General Family Medicine 08/11/22 documented as of this encounter
--- OUTSIDE RECORDS SUMMARY | 2023-09-14 15:18 | External Medical Summary | Summary of Care ---
Author Name Unknown Organization [facility] Address [address] [place] [address] Phone [phone] Care Team Providers Care Systems Applications Programming Lead Name Role Phone Devyn Balbuena MD Primary Care Provider Reason for Visit * Reason Onset Date Comments Medication Refill 08/01/2023 Encounter Details Date Type Department Care Team (Late st Contact Info) Description 08/01/2023 Refill [facility] [address] [place] [address] Sarah Vazquez MD [address] [place] [address] Current use of proton pump inhibitor*; Dysphagia, unspecified type Allergies Active Allergy Reactions Criticality Noted Date Comments Levofloxacin Nausea/vomiting Medium 10/16/2018 Molds & Smuts Other (Please comment) Medium 01/23/2019 Congestion and sore throat Poison Germania Extract 05/16/2023 documented as of this encounter (statuses as of 08/01/2023) Medications Medication Sig Dispensed Refills Start Date [...] of the day. 90 Capsule 3 08/01/2023 Active Omeprazole 20 MG Oral Capsule Delayed Release (PriLOSEC)Indicati ons:Dysphagia, unspecified type TAKE 1 CAPSULE BY MOUTH DAILY 1 HOUR BEFORE THE FIRST MEAL OF THE DAY 90 Capsule 3 06/26/2022 3 Discontinue d(Refill) documented as of this encounter (statuses as of 08/01/2023) Active Problems Problem Noted Date Diagnosed Date [...] as of this encounter (statuses as of 08/01/2023) Resolved Problems Problem Noted Date Diagnosed Date Resolved Date ADVANCE DIRECTIVE INFORMATION 12/13/2017 10/06/2019 Overview: Pt does have a living will Encounter for examination fo r normal comparison and control in clinical research program 09/14/2017 04/19/2020 Overview: DO NOT DELETE [facility] DETECT Study: Project # [id number], Deputy County Clerk: Jorden Cleaning, PhD. SUMMARY: Goal: Establish test [...] contact study staff at ; after hours Deputy County Clerk via the [facility] crop setting out machine operator . Please contact study team before resolving/deleting from patients problem list. Study phone number: [phone]. Diagnosis changed due to Research Module. Go to Snapshot for study details. Encounter for examination fo r normal comparison and control in clinical research program 09/14/2017 05/18/2022 Overview: DO NOT DELETE - [facility]AN Study: Project # [id number], Deputy County Clerk: Armando Woodard, MS, MPH. SUMMARY: Goal: Establish [...] contact study staff at ; after hours Deputy County Clerk via the [facility] crop setting out machine operator . - Please contact study team before resolving/deleting from patients problem list. Study phone number: [phone]. Diagnosis changed due to Research Module. Go to Snapshot for study details. Hypertension 04/09/2017 Pneumonia 07/25/2017 Hay fever 08/10/2018 Hx of food allergy 8 Leukocytosis 08/10/2018 Overview: work up negative Urinary, incontinence, stress female 02/10/2015 Asthma, mild persistent 03/18 documented as of this encounter (statuses as of 08/01/2023) Immunizations Name Administration Dates Next Due COVID-19 [...] (15 years old or older) No 03/03/20 Cognitive Status Response Date of Assessm ent Because of a physical, menta l, or emotional condition, do you have serious difficulty concentrating, remembering, or making decisions? (5 years old or older) No 03/03/2020 documented as of this encounter Miscellaneous Notes * Telephone Encounter - Alayna Szymanski OSA - 08/01/2023 1:43 PM EST Pending Prescriptions: Disp Refills Omeprazole 20 MG Oral Capsule Delayed Rel*90 Cap*3 Sig: Take 1 Capsule by mouth in the morning. 1 hour before the first meal of the day. Last Visit: Visit date not found (in office), Visit date not found (telemedicine) Next Visit: Visit date not found Last date the medication was ordered: 06/26/22 Patient Active Problem List Diagnosis Code Hyperlipidemia [...] D62 Chronic left shoulder pain M25.512, G89.29 Labs: Lab Results Component Value Date/Time CREAT GFR 0.79 02/27/2019 10:10 AM CREATININE - [facility] 0.7 11/09/2022 10:03 AM CREATININE - [facility] 0.9 06/29/2020 09:58 AM CREATININE, RANDOM URINE - [facility] 119 12/07/2020 11:09 AM Lab Results Component Value Date/Time POTASSIUM - [facility] 4.3 11/09/2022 10:03 AM POTASSIUM - [facility] 4.2 06/29/2020 09:58 AM POTASSIUM-OUTSIDE LAB 3.9 04/13/2022 10:52 AM Lab Results Component Value Date/Time TSH - [facility] 1.86 12/07/2020 09:28 AM Lab Results Component Value Date/Time LDL CHOLESTEROL (CALCULATED) - [facility] 129 05/16/2023 10:24 AM LDL CHOLESTEROL (CALCULATED) - [facility] 138 (H) 11/07/2022 09:00 AM LDL CHOLESTEROL (CALCULATED) - [facility] 118 11/07/2018 07:32 AM LDL CHOLESTEROL (CALCULATED) - [facility] 93 04/02/2017 08:03 AM LDL CHOLESTEROL (DIRECT MEASURE) - [facility] NOT APPLICABLE 04/02/2017 08:03 AM LDL CHOLESTEROL-OUTSIDE LAB 136.50 (A) 05/05/2013 12:00 AM Lab Results Component Value Date/Time ALT - [facility] 21 11/09/2022 10:03 AM ALT - [facility] 33 06/29/2020 09:58 AM ALTERNARIA SKIN TEST 0/0 10/23/2012 12:00 AM Hemoglobin AIC Results: Lab Results Component Value Date/Time HEMOGLOBIN A1C - [facility] 5.4 02/25/2020 06:37 PM documented in this encounter Plan of Treatment Upcoming Encounters Date Type Department Care Team (Late st Contact Info) Description 08/16/2023 8:20 AM EST Office Visit [facility] [address] [place] [address] Shanta Moore PA-C [address] [place] [phone] 09/04/2023 3:40 PM EST Office Visit [address] [address] Jory Lamar PA-C [address] [place] [address] JOSSELYN Stewart [address] 10/01/2023 11:40 AM EST Telemedicine Urogynecology [facility] [address] [facility] [place] [address] Tramaine Day MD [address] [place] [address] 10/22/2023 3:40 PM EST Office Visit [address] [phone] Devyn Balbuena MD [address] [place] [phone] 10/24/2023 3:30 PM EST Office Visit Urogynecology [facility] [address] [facility] [place] [address] Tramaine Day MD [address] [place] [address] Scheduled Orders Name Type Priority Associated Diagnoses Orde r Schedule VITAMIN B12 Lab Routine Current use of proton pump inhibitor Expected: 08/01/2023 (Approximate), Expires: 07/31/2024 MAGNESIUM Lab Routine Current use of proton pump inhibitor Expected: 08/01/2023 (Approximate), Expires: 07/31/2024 Scheduled Procedures Name Priority Associated Diagnoses Date/Ti [...] this encounter Medical Devices Implanted Type Area Braille Coder Device Identifier Shelf Expiration Date Model / Serial / Lot Restoris Mck Fermoral Sz 5 Mm - [id number] Implanted:Qty: 1 on 03/03/2020 by Juan Hurtado MD at OR [facility] Left: Knee EL : ORTHOPAEDICS 07/23/2024 [id number] / / [id number] System Implant Speedbridge - [id number] Implanted:Qty: 1 on 08/07/2022 by Darwin Colon MD at [facility] Left: Shoulder [employer] 09/16/2025 [id number] S-4 / / [id number] documented as of this encounter Visit Diagnoses Diagnosis Current use of proton pump inhibitor- Primary Dysphagia, unspecified type documented in this encounter [...] the patient have Health Care Power of Seed Corn Production Manager? No Full Code 03/03/2020 2:52 PM 03/03/2020 [...] Luis Armando Sevillabernard Vasquez. Spouse Emergency Contact [email or web address] Care Teams Systems Applications Programming Lead Relationship Specialty Start Date End Date Devyn Balbuena MD [address] [place] [address] PCP - General Family Medicine 08/11/22 documented as of this encounter
--- OUTSIDE RECORDS SUMMARY | 2023-09-14 15:18 | External Medical Summary | Summary of Care ---
Author Name Unknown Organization [facility] Address [address] [place] [address] Phone [phone] Care Team Providers Care Associate Automation Engineer Name Role Phone Devyn Balbuena MD Primary Care Provider [phone] Reason for Visit * Reason Comments Eye Exam NEW PATIENT * Evaluate & Treat - Unlimited Visits (Within 30 days (routine)) - Pending Review Specialty Diagnoses / Procedures Referred By Ros rivera Referred To Contact Ophthalmology Diagnoses Blepharitis Caterina Aguilar, OD [address] [facility] [address] [place] [address] Referral ID Status Reason Start Date Expiration Date Visits Requested Visits Authorized [id number] Pending Review Specialty Services Required 03/13/[phone] Encounter Details Date Type Department Care Team (Late st Contact Info) Description 07/16/2023 1:00 PM EDT Office Visit Ophthalmology, [facility] [address] [place] [address] Andres Lemos, DO [address] [place], [place] [phone] Myogenic ptosis of eyelid of both eyes* Allergies Active Allergy Reactions Criticality Noted Date Comments Levofloxacin Nausea/vomiting Medium 10/16/2018 Molds & Smuts Other (Please comment) Medium 01/23/2019 Congestion and sore throat Poison Germania Extract 05/16/2023 documented as of this encounter (statuses as of 07/16/2023) Medications Medication Sig Dispensed Refills Start Date [...] the morning. 30 Tablet 11 06/26/2023 Active documented as of this encounter (statuses as of 07/16/2023) Active Problems Problem Noted Date Diagnosed Date [...] as of this encounter (statuses as of 07/16/2023) Resolved Problems Problem Noted Date Diagnosed Date Resolved Date ADVANCE DIRECTIVE INFORMATION 12/13/2017 10/06/2019 Overview: Pt does have a living will Encounter for examination fo r normal comparison and control in clinical research program 09/14/2017 04/19/2020 Overview: DO NOT DELETE [facility] DETECT Study: Project # [id number], Service Support Representative: Jorden Cleaning, PhD. SUMMARY: Goal: Establish test [...] contact study staff at ; after hours Service Support Representative via the [facility] dowel sticker operator . Please contact study team before resolving/deleting from patients problem list. Study phone number: [phone]. Diagnosis changed due to Research Module. Go to Snapshot for study details. Encounter for examination fo r normal comparison and control in clinical research program 09/14/2017 05/18/2022 Overview: DO NOT DELETE - [facility] Study: Project # [id number], Service Support Representative: Armando Woodard, MS, MPH. SUMMARY: Goal: Establish [...] contact study staff at ; after hours Service Support Representative via the [facility] dowel sticker operator . - Please contact study team before resolving/deleting from patients problem list. Study phone number: [phone]. Diagnosis changed due to Research Module. Go to [employer] for study details. Hypertension 04/09/2017 Pneumonia 07/25/2017 Hay fever 08/10/2018 Hx of food allergy 8 Leukocytosis 08/10/2018 Overview: work up negative Urinary, incontinence, stress female 02/10/2015 Asthma, mild persistent 03/18 documented as of this encounter (statuses as of 07/16/2023) Immunizations Name Administration Dates Next Due COVID-19 [...] as of this encounter Progress Notes * Andres Lemos, - 07/16/2023 1:59 PM EDT Marta Mixon is a 73 year old female who presents for eyelid evaluation. Pt reports eyelids makenna left interferes with her reading. Ophthalmology Past History: glasses Ophthalmology Family History: none Ophthalmology ROS: Positive for eyelid interfering with his vision and no recent significant changein vision,no eye pain, redness, discharge,no diplopia Current Ophthalmic Medications: None EXAM: Base Eye Exam Visual Acuity (Snellen - Linear) Right Left Dist cc 20/20 20/20 Correction: Glasses Pupils Pupils Right PERRL Left PERRL Visual Bender (Counting fingers) Right Left Full Full Slit Lamp and Fundus Exam External Exam Right Left Palpebral fissure 7 mm 7 mm MRD1 2 mm 2 mm Levator 15 mm 15 mm Slit Lamp Exam Right Left Lids/Lashes ptosis high lid crease, 2+ Dermatochalasis - upper lid ptosis high lid crease, 2+ Dermatochalasis - upper lid Conjunctiva/Sclera White and quiet White and quiet Cornea Clear Clear Anterior Chamber Deep and quiet Deep and quiet Iris Round and reactive Round and reactive Lens NSC NSC External photos obtained demonstrating above findings IMPRESSION: 1. Ptosis high lid creases PLAN: 1. Photo today 2. Bender reported done in February will request and review 3. To consider bleph levator given dehiscence and high lid creases 4. R/B/A discussed including but not limited to pain, bleeding, scarring, infection, Loss of vision, loss of eye, need for further surgery, eye drops in the post operative period, the use of regionalor general anesthesia. Andres Lemos DO documented in this encounter Nursing Notes * Shana Hein TECH - 07/16/2023 1:22 PM EDT Marta Mixon is a 73 year old female who presents for new patient exam. Last Visit: Visit date not found (in office), Visit date not found (telemedicine) She currently states went to [facility] for left lid drooping, states she had visual field testingdone at that time and would be a candidate per testing Are you diabetic? No Current Ophthalmic Medications: None Referred by: [facility] COMPREHENSIVE OCULAR HISTORY Any history in yourself or blood related family of: -Diabetes- No -Diabetic Retinopathy- No -High Blood Pressure- No -Heart Disease- No -Thyroid Disease- No -Blindness- No -Macular Degeneration- Family -Retinal Detachment- No -Glaucoma/Pressure in the Eye- No -Chronic Problem Headaches or Migraines- No -Have you ever had any major surgery or serious injury of or around the eyes- no -Are your eyes chronically- N/A -Do you smoke- No Vision, IOP, current eyeglass Rx, pupil check and dilation if done can be found in ophth exam. documented in this encounter Plan of Treatment Upcoming Encounters Date Type Department Care Team (Late st Contact Info) Description 07/17/2023 3:40 PM EDT Office Visit Dermatology [address] [phone] Chalo Sinclair PA-C [address] [place] [address] 08/16/2023 8:20 AM EST Office Visit [address] [phone] Shanta Moore PA-C [address] [place] [phone] 09/04/2023 3:40 PM EST Office Visit [address] [address] Jory Lamar PA-C [address] [place] [address] JOSSELYN Stewart [address] 10/01/2023 11:40 AM EST Telemedicine Urogynecology [facility] [address] [place] [address] Tramaine Day MD [address] [place] [address] 10/22/2023 3:40 PM EST Office Visit [address] [phone] Devyn Balbuena MD [address] [place] [address] 10/24/2023 3:30 PM EST Office Visit [facility]gynecology [facility] [address] [facility] [address] Tramaine Day MD [address] [place] [address] Scheduled Orders Name Type Priority Associated Diagnoses Orde r Schedule EXTERNAL EYE PHOTOGRAPHY Procedures Routine Myogenic ptosis of eyelid of both eyes Ordered: 07/16/2023 Scheduled Procedures Name Priority Associated Diagnoses Date/Ti [...] this encounter Medical Devices Implanted Type Area Station Installer And Repairer Device Identifier Shelf Expiration Date Model / Serial / Lot Restoris Mck Fermoral Sz 5 Mm - [id number] Implanted:Qty: 1 on 03/03/2020 by Juan Hurtado MD at [facility] Left: Knee EL : ORTHOPAEDICS 07/23/2024 [id number] / / [id number]-1 System Implant [employer] - [id number] Implanted:Qty: 1 on 08/07/2022 by Darwin Colon MD at OR [facility] Left: Shoulder [employer] 09/16/2025 [id number] S-4 / / [id number] documented as of this encounter Visit Diagnoses Diagnosis Myogenic ptosis of eyelid of both eyes- Primary Myogenic ptosis documented in this encounter Advance Directives Latest [...] the patient have Health Care Power of Hvac Lead? No Full Code 03/03/2020 2:52 PM 03/03/2020 [...] Relationship Healthcare Agent Relationship Communication Luis Armando Oral Vasquez. Spouse Emergency Contact [email or web address] Care Teams Associate Automation Engineer Relationship Specialty Start Date End Date Devyn Balbuena MD [address] [place] [address] PCP - General Family Medicine 08/11/22 documented as of this encounter
--- OUTSIDE RECORDS SUMMARY | 2023-09-14 15:18 | External Medical Summary | Summary of Care ---
Author Name Unknown Organization [facility] Address [address] [place] [address] Phone [phone] Care Team Providers Care Sales Representative Name Role Phone Devyn Balbuena MD Primary Care Provider [phone] Reason for Visit * Reason Comments Follow Up Encounter Details Date Type Department Care Team Description 06/26/2023 Office Visit Urogynecology Neil Alonso [address] [facility] [place] [address] Tramaine Day MD [address] [place] [address] Nurse Tommy Alonso [address] [place] [address] Vaginal vault prolapse, posthysterectomy*; Cystocele, midline; OAB (overactive bladder) Allergies Active Allergy Reactions Severity Noted Date Comments Levofloxacin Nausea/vomiting Medium 10/16/2018 Molds & Smuts Other (Please comment) Medium 01/23/2019 Congestion and sore throat Poison Germania Extract 05/16/2023 documented as of this encounter (statuses as of 06/26/2023) Medications Medication Sig Dispensed Refills Start Date [...] the morning. 30 Tablet 11 06/26/2023 Active Myrbetriq 50 MG Oral Tablet Extended Release 24 Hour (Mirabegron ER) Take 1 Tablet by mouth in the morning. 30 Tablet 11 05/23/2023 3 Discontinue d(Medicatio n/Dose Changed) documented as of this encounter (statuses as of 06/26/2023) Active Problems Problem Noted Date Chronic left [...] as of this encounter (statuses as of 06/26/2023) Resolved Problems Problem Noted Date Resolved Date ADVANCE DIRECTIVE INFORMATION 12/13/2017 Overview: Pt does have a living will Encounter for examination fo r normal comparison and control in clinical research program 09/14/2017 04/19/2020 Overview: DO NOT DELETE [facility] DETECT Study: Project # [id number], Spa Supervisor: Jorden Cleaning, PhD. SUMMARY: Goal: Establish [...] contact study staff at ; after hours Spa Supervisor via the [facility] whizzer operator . Please contact study team before resolving/deleting from patients problem list. Study phone number: [phone]. Diagnosis changed due to Research Module. Go to Snapshot for study details. Encounter for examination fo r normal comparison and control in clinical research program 09/14/2017 05/18/2022 Overview: DO NOT DELETE - [facility] Study: Project # [id number], Spa Supervisor: Armando Woodard, MS, MPH. SUMMARY: Goal: [...] contact study staff at ; after hours Spa Supervisor via the [facility] whizzer operator . - Please contact study team before resolving/deleting from patients problem list. Study phone number: [phone]. Diagnosis changed due to Research Module. Go to Snapshot for study details. Hypertension 04/09/2017 Pneumonia 07/25/2017 Hay fever 08/10/2018 Hx of food allergy 08/10/2018 Leukocytosis 08/10/2018 Overview: work up negative Urinary, incontinence, stress female 02/10/2015 Asthma, mild persistent 04/09/20 17 documented as of this encounter (statuses as of 06/26/2023) Immunizations Name Administration Dates Next Due COVID-19 [...] Date Smoking Tobacco: Never Smokeless Tobacco: Never Tobacco Cessation:Counseling Given: Not Answered Alcohol Use Standard Drinks/Week Comments Not Currently [...] as of this encounter Progress Notes * Tramaine Day MD - 06/26/2023 3:04 PM EDT Marta Mixon presents for a follow up visit at [facility]. 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 The pessary is holding the prolapse well. No pain,no bleeding. However no change in her urinary control. She continues to have frequency every hour, urgency, and nocturia. She developed some bumps in her leg after starting the Estrogen cream and Myrbetriq and quickly discontinued the medications. Allergies: Review of patient's allergies indicates: Allergen Reactions Levofloxacin Nausea/vomiting Molds & Smuts Other (Please comment) Congestion and sore throat Poison Germania Extract Active Medications: Current Outpatient Medications Medication Sig Dispense Refill [...] a week at bedtime 42.5 g 3 Myrbetriq 50 MG Oral Tablet Extended Release 24 Hour (Mirabegron ER) Take 1 Tablet by mouth in the morning. (Patient not taking: Reported on 06/26/2023) 30 Tablet 11 No current facility-administered medications for this visit. ROS: No Change since previous visit not currently . Blood pressure percentiles are not available for patients who are 18 years or older. There is no height or weight on file to calculate BMI. EXAM: Well developed well nourished female in no apparent distress. Alert oriented x3 HEART: Normal peripheral pulses, Edema neg THYROID: no obvious neck masses LUNG: No increased respiratory effort ABD: Soft, NT, ND, no masses PELVIC EXAM: Ext gen: Normal external female genitalia, Vagina: No vaginal lesions or abnormal discharge. No lesions BIMANUAL EXAM: no masses, NT Results for orders placed or performed in visit on 05/18/23 BABESIA MICROTI DNA, REAL-TIME PCR Result Value Ref Range Babesia Microti DNA, PCR Detected (A) Not Detected *Note: Due to a large number of results and/or encounters for the requested time period, some results have not been displayed. A complete set of results can be found in Results Review. Impression: This is a 73 year old with Vaginal vault prolapse, posthysterectomy (Primary) Cystocele, midline OAB (overactive bladder) Ring pessary removed and cleaned. Vaginal mucosa appears healthy and without lesions. OAB: we agreed to go back to Vesicare 10 mg. Prolapse: Ultimately, she wishes to have surgery to correct her prolapse. She already had a uterosacral ligament suspension and is looking for a stronger more durable repair. I reviewed robotic sacral colpopexy. I reviewed the risks of surgery including infection, bleeding, injury, pain, mesh exposure, urinary retention, urinary incontinence. All questions answered. She would like to schedule. I spent a total of 30 minutes on the date of service in preparation, delivery, and documentation ofthe care provided to Marta Mixon excluding any time spent in the performance of separately billed services. Tramaine Day MD 06/26/2023 3:05 PM Urogynecology Surgical Checklist Patient Name: Marta Mixon Date of : 1950 Surgery Date: next Physician: Barb Primary Care Physician Needed: Yes Location: [facility] Admission Type: 23 Hour Observation Anesthesia: General Anesthesia Consult Needed: No Pre-Operative Labs/Testing: CBC, BMP, and ECG Pre-Surgical Interview (PATS): Phone Consent Done: No Medicaid Hysterectomy Consent Done: No COVID-19 Testing Date: n/a Surgery Cling (Education) Given to Patient: No Anticoagulation: No Stopped Anticoagulation: No Coagulation Clinic: No Medical Clearance Needed: No Cardiac Clearance Needed: No ProvenCare Teaching Complete: No Special Requests (case length variation from average, vendor, equipment): Y mesh Post-Operative Follow-Up: Telemed visit in 2 weeks and Appointment in 6 weeks Post-Operative Restrictions/Time Off: 6 weeks Procedures (CPT code): 22937220 - Robotic sacral colpopexy Diagnoses (ICD-10 code): N81.12 - Cystocele, lateral N99.3 - Vesicovaginal prolapse, post-hysterectomy documented in this encounter Nursing Notes * Alissa Coats LPN - 06/26/2023 2:36 PM EDT Patient presents for a pessary and medication check. Would like to discuss surgery options as well.Denies any pain, bleeding and discharge. documented in this encounter Plan of Treatment Upcoming Encounters Date Type Specialty Care Team Description 07/16/2023 Office Visit Ophthalmology Andres Lemos, DO [address] [place] [address] 07/17/2023 Office Visit Dermatology Chalo Sinclair PA-C [address] [place] [address] 08/16/2023 Office Visit Family Medicine Shanta Moore PA-C [address] [place] [address] 09/04/2023 Office Visit Dermatology Jory Lamar PA-C [address] [place] [address] [place] [address] 10/22/2023 Office Visit Family Medicine Devyn Balbuena MD [address] [place] [address] Scheduled Orders Name Type Priority Associated Diagnoses Orde r Schedule CBC Lab Routine Vaginal vault prolapse, posthysterectomy Cystocele, midline OAB (overactive bladder) Expected: 06/26/2023, Expires: 06/26/2024 BASIC METABOLIC PANEL Lab Routine Vaginal vault prolapse, posthysterectomy Cystocele, midline OAB (overactive bladder) Expected: 06/26/2023, Expires: 06/26/2024 EKG EKG Routine Vaginal vault prolapse, posthysterectomy Cystocele, midline OAB (overactive bladder) Expected: 06/26/2023 (Approximate), Expires: 06/26/2024 Scheduled Procedures Name Priority Associated Diagnoses Date/Ti [...] Medical Devices Implanted Type Area Director Of Marketing Device Identifier Shelf Expiration Date Model / Serial / Lot Restoris Mck Fermoral Sz 5 Mm - [id number] Implanted:Qty: 1 on 03/03/2020 by Juan Hurtado MD at OR [facility] Left: Knee EL : ORTHOPAEDICS 07/23/2024 [id number] / / [id number] System Implant Speedbridge - [id number] Implanted:Qty: 1 on 08/07/2022 by Darwin Colon MD at OR [facility] Left: Shoulder [employer] 09/16/2025 [id number] S-4 / / [id number] documented as of this encounter Visit Diagnoses Diagnosis Vaginal vault prolapse, posthysterectomy- Primary Prolapse of vaginal vault after hysterectomy Cystocele, [...] the patient have Health Care Power of Machine Stone Polisher Apprentice? No Full Code 03/03/2020 2:52 PM 03/03/2020 [...] Healthcare Agent Relationship Communication Luis Armando Binghamkamilla Vasquez. Spouse Emergency Contact [email or web address] Care Teams Sales Representative Relationship Specialty Start Date End Date Devyn Balbuena MD [address] [place] [id number] PCP - General Family Medicine 08/11/22 documented as of this encounter
--- OUTSIDE RECORDS SUMMARY | 2023-09-14 15:18 | External Medical Summary | Summary of Care ---
Author Name Unknown Organization [facility] Address [address] [place] [address] Phone [phone] Care Team Providers Care Photostat Operator Helper Name Role Phone Devyn Balbuena MD Primary Care Provider [phone] Reason for Visit * Reason Onset Date Comments Advice 04/23/2023 Encounter Details Date Type Department Care Team (Late st Contact Info) Description 04/23/2023 Telephone Orthopaedics, [place] [address] [place] [address] Juan Hurtado MD [address] [place] [address] Advice Allergies Active Allergy Reactions Criticality Noted Date Comments Levofloxacin Nausea/vomiting Medium 10/16/2018 Molds & Smuts Other (Please comment) Medium 01/23/2019 Congestion and sore throat Poison Germania Extract 05/16/2023 documented as of this encounter (statuses as of 07/23/2023) Medications Medication Sig Dispensed Refills Start Date [...] Tablet Take by mouth . 0 Active Omeprazole 20 MG Oral Capsule Delayed Release (PriLOSEC)Indica tions:Dysphagia, unspecified type TAKE 1 CAPSULE BY MOUTH DAILY 1 HOUR BEFORE THE FIRST MEAL OF THE DAY 90 Capsule 3 06/26/20 22 Active Cetirizine HCl 10 MG Oral Capsule [...] DAY 90 Tablet 3 02/23/20 23 Active Diclofenac Sodium 1 % External [...] 1 05/15/20 22 023 Discontinued Nystatin-Triamci nolone 383910-7.1 UNIT/GM-% External Cream (Mycolog)Indicat ions:Intertrigo APPLY TOPICALLY TO AFFECTED AREA 2 TIMES A DAY FOR 14 DAYS. 30 g 5 05/19/20 22 023 Discontinued amLODIPine Besylate 5 MG Oral Tablet (Norvasc)Indicat ions:HTN, goal below 130/80 TAKE 1 TABLET BY MOUTH EVERY DAY 90 Tablet 3 09/30/19 23 023 Discontinued(Me dication/Dose Changed) predniSONE 10 MG Oral Tablet (Deltasone) Take 5 tabs for 2 days, 4 tabs for 2 days, 3 tabs for 2 days, 2 tabs for 2 days 1 tab for 2 days 30 Tablet 0 01/12/20 23 023 Discontinued Triamcinolone Acetonide 0.1 % Mouth/Throat Paste (Kenalog In Orabase)Indicati ons:Tongue sore Apply to erythematous area on tongue twice daily 5 g 1 01/23/20 23 023 Discontinued Solifenacin Succinate 10 MG Oral Tablet (VESIcare)Indica tions:Mixed stress and urge urinary incontinence TAKE 1 TABLET BY MOUTH EVERY DAY IN THE MORNING 90 Tablet 0 03/26/20 23 023 Discontinued documented as of this encounter (statuses as of 07/23/2023) Active Problems Problem Noted Date Diagnosed Date [...] as of this encounter (statuses as of 07/23/2023) Resolved Problems Problem Noted Date Diagnosed Date Resolved Date ADVANCE DIRECTIVE INFORMATION 12/13/2017 10/06/2019 Overview: Pt does have a living will Encounter for examination fo r normal comparison and control in clinical research program 09/14/2017 04/19/2020 Overview: DO NOT DELETE [facility] DETECT Study: Project # [id number], Rn House Supervisor: Jorden Cleaning, PhD. SUMMARY: Goal: Establish [...] contact study staff at ; after hours Rn House Supervisor via the [facility] electric power machine operator . Please contact study team before resolving/deleting from patients problem list. Study phone number: [phone]. Diagnosis changed due to Research Module. Go to Snapshot for study details. Encounter for examination fo r normal comparison and control in clinical research program 09/14/2017 05/18/2022 Overview: DO NOT DELETE - [facility] DETECT Study: Project # [id number], Rn House Supervisor: Armando Woodard, MS, MPH. SUMMARY: Goal: [...] contact study staff at ; after hours Rn House Supervisor via the [facility] electric power machine operator . - Please contact study team before resolving/deleting from patients problem list. Study phone number: [phone]. Diagnosis changed due to Research Module. Go to Snapshot for study details. Hypertension 04/09/2017 Pneumonia 07/25/2017 Hay fever 08/10/2018 Hx of food allergy 8 Leukocytosis 08/10/2018 Overview: work up negative Urinary, incontinence, stress female 02/10/2015 Asthma, mild persistent 03/18 documented as of this encounter (statuses as of 07/23/2023) Immunizations Name Administration Dates Next Due COVID-19 [...] encounter Miscellaneous Notes * Telephone Encounter - Jeanmarie Dunne PA-C - 04/23/2023 3:33 PM EDT Called and spoke to Marta. She said there is a click but not painful. Explained I reviewed with and he said as long as it is not painful, it is okay. If becomes painful, she should let usknow. She wanted to know if she needed a shot. Discussed she should not get a shot because of the risk of infection. No other questions. * Telephone Encounter - Yeimy Bales - 04/23/2023 12:01 PM EDT Patient called in stating that she has been going to the [facility] 3 times a week and has been doing cardio workouts for 45 mins. Anytime she gets on treadmill and elliptical she hears a clicking. She would like to know if this is normal. Pt # [phone] documented in this encounter Plan of Treatment Upcoming Encounters Date Type Department Care Team (Late st Contact Info) Description 08/16/2023 8:20 AM EST Office Visit [address] [address] Shanta Moore PA-C [address] [place] [address] 09/04/2023 3:40 PM EST Office Visit Dermatology[address] [address] Jory Lamar PA-C [address] [place] [address] [place] [address] 10/01/2023 11:40 AM EST Telemedicine Urogynecology [facility] [address] [place] [address] Tramaine Day MD [address] [place] [address] 10/22/2023 3:40 PM EST Office Visit [facility] [address] [place] [address] Devyn Balbuena MD [address] [place] [address] 10/24/2023 3:30 PM EST Office Visit Urogynecology [facility] [address] [place] [address] Tramaine Day MD [address] [place] [address] Scheduled Procedures Name Priority Associated Diagnoses Date/Ti [...] this encounter Medical Devices Implanted Type Area Pricing Director Device Identifier Shelf Expiration Date Model / Serial / Lot Restoris Mck Fermoral Sz 5 Mm - [id number] Implanted:Qty: 1 on 03/03/2020 by Juan Hurtado MD at OR [facility] Left: Knee EL : ORTHOPAEDICS 07/23/2024 [id number] / / [id number]-1 System Implant [employer]bridge - [id number] Implanted:Qty: 1 on 08/07/2022 by Darwin Colon MD at OR [facility] Left: Shoulder [employer] 09/16/2025 [id number] S-4 / / [id number] documented as of this encounter Advance Directives [...] the patient have Health Care Power of Foundry Worker Apprentice? No Full Code 03/03/2020 2:52 PM [...] Healthcare Agent Relationship Communication Luis Armando Sevillabernard Car Spouse Emergency Contact [email or web address] Teams Photostat Operator Helper Relationship Specialty Start Date End Date Devyn Balbuena MD [address] [place] [address] PCP - General Family Medicine 08/11/22 documented as of this encounter
--- OUTSIDE RECORDS SUMMARY | 2023-09-14 15:18 | External Medical Summary | Summary of Care ---
Author Name Unknown Organization [facility] Address [address] [place] [address] Phone [phone] Care Team Providers Care Sugar Chipper Machine Operator Name Role Phone Devyn Barksdale MD Primary Care Provider [phone] Reason for Visit * Reason Comments Lesion Patient presents tod ay for lumps on lower legs and knees. Started getting better after switching a new medication. * Evaluate & Treat - Unlimited Visits (Within 10 days (routine)) - Pending Review Specialty Diagnoses / Procedures Referred By Ros rivera Referred To Contact Dermatology Diagnoses Skin lesion Chyna Cowart MD [address] [place] [address] Referral ID Status Reason Start Date Expiration Date Visits Requested Visits Authorized [id number] Pending Review Specialty Services Required 06/06/[phone] Encounter Details Date Type Department Care Team ([facility] st Contact Info) Description 07/17/2023 3:40 PM EDT Office Visit Dermatology [facility] [address] [place] [phone] Chalo Sinclair PA-C [address] [place] [address] Inflamed seborrheic keratosis*; Rash and nonspecific skin eruption Allergies Active Allergy Reactions Criticality Noted Date [...] 09/14/2017 04/19/2020 Overview: DO NOT DELETE [facility] MEGHAN Study: Project # [id number], Water Reclamation Systems Operator: Jorden Cleaning, PhD. SUMMARY: Goal: Establish test [...] contact study staff at ; after hours Water Reclamation Systems Operator via the [facility] hospital dock operator . Please contact study team before resolving/deleting from patients problem list. Study phone number: [phone]. Diagnosis changed due to Research Module. Go to Snapshot for study details. Encounter for examination fo r normal comparison and control in clinical research program 09/14/2017 05/18/2022 Overview: DO NOT DELETE - [facility] DETECT Study: Project # [id number], Water Reclamation Systems Operator: Armando Woodard, MS, MPH. SUMMARY: Goal: Establish [...] contact study staff at ; after hours Water Reclamation Systems Operator via the [facility] hospital dock operator . - Please contact study team before resolving/deleting from patients problem list. Study phone number: [phone]. Diagnosis changed due to Research Module. Go [...] as of this encounter Progress Notes * Chalo Sinclair PA-C - 07/17/2023 3:42 PM EDT SUBJECTIVE: History of Present Illness: Marta Mixon is a 73 year old female seen today for evaluation of painful lumps on the legs. Patient notes she started to develop painful lumps on the legs after starting Myrbetriq and estrogen cream from urogynecology(05/23). The medicaitons were discontinued after she spoke with urogynecology and the painful nodules on the legs started to resolve- nearly all healed now. She was treating with ice, heat(made things worse) and tylenol/motrin. Patient notes she had something similar 20 years agowhen she had sarcoidosis- lung and skin involvement. She would also like a rough spot on the forehead checked and possibly treated. 05/11/2022 (in office) REVIEW OF SYSTEMS: SKIN: No other new or changing moles. HEME/LYMPH: No new or enlarging lumps or bumps. CONSTITUTIONAL: No nausea, vomiting, fevers, chills, diarrhea. No recent unintended weight loss, night sweats, appetite or malaise. SKIN CANCER HX: none MEDICA TIONS: Current Outpatient Medications Medication Sig [...] Tablet by mouth in the morning. 30 [id number] Nitrofurantoin Monohyd Macro 100 MG Oral Capsule [...] and Poison collin extract OBJECT ERICA: GEN: Healthy, alert, no distress, appears oriented, pleasant, and cooperative. SKIN: Detailed exam of face including lids and lips, neck, and bilateral lower ext. (leg, foot, toes) completed and are normal except: A. Bilateral lower legs with postinflammatory hyperpigmentation and a few faint pink plaques B. Middle upper forehead wit a 2-3 mm pink scaly papule ASSESS MENT/PLAN: A. ?drug induced resolving panniculitis with areas of post inflammatory hyperpigmentation. New active/new areas for biopsy. Will continue to monitor and recommended patient reach out with flaring. Ifflaring, would recommend bx to r/o panniculitis. Patient agreeable. Jefry [place] Cryosurgery explained to the patient, consent obtained, patient, site and procedure verified, and then cryotherapy was performed with Liquid Nitrogen via cryo spray unit to 1 lesions. Location noted in physical exam. Post op course explained. -bx if persistent Follow-up: as scheduled before for a skin check or sooner PRN Patient alone today. Photo(s) taken, pt verbally consented to having photo(s) taken. Contact patient via cell phone Ok to leave results on message: Yes Patient Phone Numbers Applicable photos (if any) and chart reviewed by Dr. Scott Flores Presumed diagnoses, expected natural histories, and management [...] demonstrates understanding of the visit and treatment. Jo Sinclair PA-C 07/17/2023 3:44 PM Ref: CHYNA COWART[[id number]] [address] [place] [address] (office) [phone] (fax) PCP: DEVYN BARKSDALE [address] [place] [address] [phone] documented in this encounter Nursing Notes * Sunita Menard LPN - 07/17/2023 3:32 PM EDT Patient identified by name and date. Chief Complaint Patient presents with Lesion Patient presents today for lumps on lower legs and knees. Started getting better after switching a new medication. documented in this encounter Plan of Treatment Upcoming Encounters Date Type Department Care Team (Late st Contact Info) Description 08/16/2023 8:20 AM EST Office Visit [address] [phone] Shanta Moore PA-C [address] [place] [address] 09/04/2023 3:40 PM EST Office Visit Dermatology[address] [address] Jory Lamar PA-C [address] [place] [address] [place] [address] 10/01/2023 11:40 AM EST Telemedicine Urogynecology [facility] [address] [place] [address] Tramaine Day MD [address] [place] [address] 10/22/2023 3:40 PM EST Office Visit [address] [phone] Devyn Barksdale MD [address] [place] [address] 10/24/2023 3:30 PM EST Office Visit Urogynecology [facility] [address] [place] [address] Tramaine Day MD [address] [place] [address] Scheduled Procedures Name Priority Associated Diagnoses Date/Ti [...] this encounter Medical Devices Implanted Type Area Ux Information Architect Device Identifier Shelf Expiration Date Model / Serial / Lot Restoris Mck Fermoral Sz 5 Mm - [id number] Implanted:Qty: 1 on 03/03/2020 by Juan Hurtado MD at OR [facility] Left: Knee EL : ORTHOPAEDICS 07/23/2024 [id number] / / [id number] System Implant Speedbridge - [id number] Implanted:Qty: 1 on 08/07/2022 by Darwin Colon MD at OR [facility] Left: Shoulder [employer] 09/16/2025 [id number] S-4 / / [id number] documented as of this encounter Procedures Procedure Name Priority Date/Time Associated Diagnosis Comments DERM IMAGE (SITE) Routine 07/17/2023 documented in this encounter Results * DERM IMAGE (SITE) (07/17/2023) 07/17/2023 Chalo Sinclair PA-C DIGITAL PHOTOGRAPHY documented in this encounter Visit Diagnoses Diagnosis Inflamed seborrheic keratosis- Primary Rash and nonspecific skin eruption Rash and other nonspecific skin eruption documented in this encounter Advance Directives Latest [...] the patient have Health Care Power of Respiratory Therapy Assistant? No Full Code 03/03/2020 2:52 PM 03/03/2020 [...] Healthcare Agent Relationship Communication Luis Armando Oral Car Spouse Emergency Contact [email or web address] t Care Teams Sugar Chipper Machine Operator Relationship Specialty Start Date End Date Devyn Barksdale MD [address] [place] [address] PCP - General Family Medicine 08/11/22 documented as of this encounter
--- OUTSIDE RECORDS SUMMARY | 2023-09-14 15:18 | External Medical Summary | Summary of Care ---
Author Name Unknown Organization [facility] Address [address] [place] [address] Phone [phone] Care Team Providers Care Windows Server Architect Name Role Phone Devyn Barksdale MD Primary Care Provider [phone] Reason for Visit * Reason Comments Lesion Patient presents tod ay for lumps on lower legs and knees. Started getting better after switching a new medication. * Evaluate & Treat - Unlimited Visits (Within 10 days (routine)) - Pending Review Specialty Diagnoses / Procedures Referred By Ros rivera Referred To Contact Dermatology Diagnoses Skin lesion Chyna Cowart MD [address] [place] [address] Referral ID Status Reason Start Date Expiration Date Visits Requested Visits Authorized [id number] Pending Review Specialty Services Required 06/06/[phone] Encounter Details Date Type Department Care Team ([facility] st Contact Info) Description 07/17/2023 3:40 PM EDT Office Visit Dermatology [facility] [address] [place] [phone] Chalo Sinclair PA-C [address] [place] [address] Inflamed seborrheic keratosis*; Rash and nonspecific skin eruption Allergies Active Allergy Reactions Criticality Noted Date Comments Levofloxacin Nausea/vomiting Medium 10/16/2018 Molds & Smuts Other (Please comment) Medium 01/23/2019 Congestion and sore throat Poison Collin Extract 05/16/2023 documented as of this encounter (statuses as of 07/18/2023) Medications Medication Sig Dispensed Refills Start Date [...] 1 dose. 1 Tablet 0 07/17/2023 07/17/2023 documented as of this encounter (statuses as of 07/18/2023) Active Problems Problem Noted Date Diagnosed Date [...] as of this encounter (statuses as of 07/18/2023) Resolved Problems Problem Noted Date Diagnosed Date Resolved Date ADVANCE DIRECTIVE INFORMATION 12/13/2017 10/06/2019 Overview: Pt does have a living will Encounter for examination fo r normal comparison and control in clinical research program 09/14/2017 04/19/2020 Overview: DO NOT DELETE [facility] MEGHAN Study: Project # [id number], Laborer Sawmill: Jorden Cleaning, PhD. SUMMARY: Goal: Establish test [...] contact study staff at ; after hours Laborer Sawmill via the [facility] hospital plastic extruding machine operator . Please contact study team before resolving/deleting from patients problem list. Study phone number: [phone]. Diagnosis changed due to Research Module. Go to Snapshot for study details. Encounter for examination fo r normal comparison and control in clinical research program 09/14/2017 05/18/2022 Overview: DO NOT DELETE - [facility] DETECT Study: Project # [id number], Laborer Sawmill: Armando Woodard, MS, MPH. SUMMARY: Goal: Establish [...] contact study staff at ; after hours Laborer Sawmill via the [facility] hospital plastic extruding machine operator . - Please contact study team before resolving/deleting from patients problem list. Study phone number: [phone]. Diagnosis changed due to Research Module. Go to Snapshot for study details. Hypertension 04/09/2017 Pneumonia 07/25/2017 Hay fever 08/10/2018 Hx of food allergy 8 Leukocytosis 08/10/2018 Overview: work up negative Urinary, incontinence, stress female 02/10/2015 Asthma, mild persistent 03/18 documented as of this encounter (statuses as of 07/18/2023) Immunizations Name Administration Dates Next Due COVID-19 [...] as of this encounter Progress Notes * Scott Flores MD - 07/18/2023 2:50 PM EDT I have seen and examined via teledermatology review of chart note and photos the patient with Chalo Sinclair PA-C. I have reviewed and agree with the assessment and plan. Scott Flores MD * Chalo Sinclair PA-C - 07/17/2023 3:42 [...] Tablet by mouth in the morning. 30 [id number] Nitrofurantoin Monohyd Macro 100 MG Oral Capsule [...] recommend bx to r/o panniculitis. Patient agreeable. B. ISK v [place] Cryosurgery explained to the patient, consent obtained, [...] Sinclair PA-C 07/17/2023 3:44 PM Ref: CHYNA COWART[[id number]] [address] [place], [place] [address] [phone] (office) [phone] (fax) PCP: DEVYN BARKSDALE [address] [place] [address] documented in this encounter Nursing Notes * [...] Description 08/16/2023 8:20 AM EST Office Visit [address] [phone] Shanta Moore PA-C [address] [place] [address] 09/04/2023 3:40 PM EST Office Visit [address] [address] Jory Lamar PA-C [address] [place] [address] [place] [address] 10/01/2023 11:40 AM EST Telemedicine Urogynecology [facility] [address] [facility] [place] [address] Tramaine Day MD [address] [facility] [place] [address] 10/22/2023 3:40 PM EST Office Visit [address] [phone] Devyn Barksdale MD [address] [place] [address] 10/24/2023 3:30 PM EST Office Visit Urogynecology [facility] [address] [facility] [place] [address] Tramaine Day MD [address] [place] [address] Scheduled Procedures Name Priority Associated Diagnoses Date/Ti [...] this encounter Medical Devices Implanted Type Area Bat Carrier Device Identifier Shelf Expiration Date Model / Serial / Lot Restoris Mck Fermoral Sz 5 Mm - [id number] Implanted:Qty: 1 on 03/03/2020 by Juan Hurtado MD at OR [facility] Left: Knee EL : ORTHOPAEDICS 07/23/2024 [id number] / / [id number]-1 System Implant Speedbridge - [id number] Implanted:Qty: 1 on 08/07/2022 by Darwin Colon MD at OR [facility] Left: Shoulder [employer] 09/16/2025 [id number] S-4 / / [id number] documented as of this encounter Procedures Procedure [...] the patient have Health Care Power of Day Care Teacher? No Full Code 03/03/2020 2:52 PM 03/03/2020 [...] Luis Armando Mixon Jr. Spouse Emergency Contact [email or web address] Care Teams Windows Server Architect Relationship Specialty Start Date End Date Devyn Barksdale MD [address] [place] [phone] PCP - General Family Medicine 08/11/22 documented as of this encounter
--- OUTSIDE RECORDS SUMMARY | 2023-09-14 15:19 | External Medical Summary | Summary of Care ---
Author Name Unknown Organization [facility] Address [address] [place] [address] Phone [phone] Care Team Providers Care Slot Machine Department Floorperson Name Role Phone Devyn Balbuena MD Primary Care Provider [phone] Reason for Referral * Evaluate & Treat - Unlimited Visits (Within 10 days (routine)) - Pending Review Specialty Diagnoses / Procedures Referred By Ros rivera Referred To Contact [facility] - Urogynecology / Gynecology Urology Diagnoses Bladder prolapse, female, acquired Shanta Moore PA-C [address] [place] [id number] Referral ID Status Reason Start Date Expiration Date Visits Requested Visits Authorized [id number] Pending Review Specialty Services Required 05/16/[phone] Question Answer Referral Priority Within 10 days (routine) What condition is the patient being referred for? Prolapse (dropped bladder, uterus, etc) Reason for Visit * Reason Comments Follow Up Pt. Is here today fo r a follow up.Pt. Is concerned about a referral she received. Pt. Would like to know if she still needs to take her blood pressure medicine even thought her blood pressures have been under controlPt. States she is having sinus issues and is curious if it is regular drainage or an infection.Pt. Was bit by a tick and donated blood last week but had labs done yesterday. Encounter Details Date Type Department Care Team Description 05/16/2023 Office Visit [facility] [address] [place] [phone] Shanta Moore PA-C [address] [place] [address] Bladder prolapse, female, acquired*; Mild persistent asthma without complication; At high risk for tick borne illness; Anemia, unspecified type Allergies Active Allergy Reactions Severity Noted Date Comments Levofloxacin Nausea/vomiting Medium 10/16/2018 Molds & Smuts Other (Please comment) Medium 01/23/2019 Congestion and sore throat Poison Germania Extract 05/16/2023 documented as of this encounter (statuses as of 05/16/2023) Medications Medication Sig Dispensed Refills Start Date [...] Tablet Take by mouth . 0 Active Diclofenac Sodium 1 % External Gel (Voltaren) Apply topically to affected area 4 g in the morning AND 4 g at noon AND 4 g in the evening AND 4 g before bedtime. Knee pain and swelling. 100 g 4 2 Active Additional Information Patient not taking.Reported on 12/10/2022 Hydrocortisone Acetate 25 MG Rectal Suppository (Anusol-HC)Indica tions:Anal pain Administer into the rectum 2 times a day in the morning and at bedtime as needed for Hemorrhoids. Up to 2 weeks. 24 Suppository 1 2 Active Additional Information Patient not taking.Reported on 05/16/2023 Nystatin-Triamcin olone 076778-5.1 UNIT/GM-% External Cream (Mycolog)Indicati ons:Intertrigo APPLY TOPICALLY TO AFFECTED AREA 2 TIMES A DAY FOR 14 DAYS. 30 g 5 2 Active Additional Information Patient not taking.Reported on 05/16/2023 Omeprazole 20 MG Oral Capsule Delayed Release (PriLOSEC)Indicat ions:Dysphagia, unspecified type TAKE 1 CAPSULE BY MOUTH DAILY 1 HOUR BEFORE THE FIRST MEAL OF THE DAY 90 Capsule 3 2 Active Cetirizine HCl 10 MG Oral Capsule Take by mouth 1 Capsule in the morning. 90 Capsule 2 2 Active Fluticasone Propionate 50 MCG/ACT Nasal Suspension (Flonase)Indicati ons:Seasonal allergies SPRAY 2 SPRAYS INTO EACH NOSTRIL EVERY DAY 48 mL 3 3 Active Azelastine HCl 137 MCG/SPRAY Nasal Solution USE 1 SPRAY IN EACH NOSTRIL TWICE A DAY 0 2 Active Albuterol Sulfate (2.5 MG/3ML) 0.083% Inhalation Nebulization Solution (Proventil)Indica tions:Mild persistent asthma without complication Inhale 1 Vial via nebulizer every 4 hours as needed for Wheezing. 100 mL 3 3 Active Famotidine 20 MG Oral Tablet (Pepcid) TAKE 1 TABLET BY MOUTH TWICE A DAY 180 Tablet 1 3 Active Advair Diskus 500-50 MCG/ACT Inhalation Aerosol Powder Breath Activated (Fluticasone-Salm eterol)Indication s:Mild persistent asthma without complication INHALE BY MOUTH 1 PUFF IN THE MORNING AND 1 PUFF BEFORE BEDTIME. 180 Each 3 3 Active Triamcinolone Acetonide 0.1 % Mouth/Throat Paste (Kenalog In Orabase)Indicatio ns:Tongue sore Apply to erythematous area on tongue twice daily 5 g 1 3 Active Additional Information Patient not taking.Reported on 05/16/2023 Montelukast Sodium 10 MG Oral Tablet (Singulair)Indica tions:Mild persistent asthma, uncomplicated,All ergic rhinitis due to pollen TAKE 1 TABLET BY MOUTH EVERY DAY 90 Tablet 3 3 Active Solifenacin Succinate 10 MG Oral Tablet (VESIcare)Indicat ions:Mixed stress and urge urinary incontinence TAKE 1 TABLET BY MOUTH EVERY DAY IN THE MORNING 90 Tablet 1 3 Active Albuterol Sulfate HFA 108 (90 Base) MCG/ACT Inhalation Aerosol SolutionIndicatio ns:Mild persistent asthma without complication Inhale 2 Puffs by mouth every 6 hours as needed (as needed). 18 g 3 3 Active amLODIPine Besylate 5 MG Oral Tablet (Norvasc)Indicati ons:HTN, goal below 130/80 TAKE 1 TABLET BY MOUTH EVERY DAY 90 Tablet 3 3 05/16/20 23 Discontinu ed(Medicat ion/Dose Changed) documented as of this encounter (statuses as of 05/16/2023) Active Problems Problem Noted Date Chronic left [...] as of this encounter (statuses as of 05/16/2023) Resolved Problems Problem Noted Date Resolved Date ADVANCE DIRECTIVE INFORMATION 12/13/2017 Overview: Pt does have a living will Encounter for examination fo r normal comparison and control in clinical research program 09/14/2017 04/19/2020 Overview: DO NOT DELETE [facility] DETECT Study: Project # [id number], Manager Compensation: Jorden Cleaning, PhD. 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 Please contact study team before resolving/deleting from patients problem list. Study phone number: [phone]. Diagnosis changed due to Research Module. Go to Snapshot for study details. Encounter for examination fo r normal comparison and control in clinical research program 09/14/2017 05/18/2022 Overview: DO NOT DELETE [facility] Study: Project # [id number], Manager Compensation: Armando Woodard, MS, MPH. SUMMARY: Goal: Establish [...] study staff at ; after hours Manager Compensation via the [facility] hospital local owner operator truck driver . - Please contact study team before resolving/deleting from patients problem list. Study phone number: [phone]. Diagnosis changed due to Research Module. Go to Snapshot for study details. Hypertension 04/09/2017 Pneumonia 07/25/2017 Hay fever 08/10/2018 Hx of food allergy 08/10/2018 Leukocytosis 08/10/2018 Overview: work up negative Urinary, incontinence, stress female 02/10/2015 Asthma, mild persistent 04/09/20 17 documented as of this encounter (statuses as of 05/16/2023) Immunizations Name Administration Dates Next Due COVID-19 mRNA, LNP-s, No Pre serve, 2-Dose Series (Moderna) 11/18/2020,10/23/2020 Covid-19 Mrna, Lnp-s, No Pre serve, Booster (Moderna) 02/09/2022,08/08/2021 Covid-19, Mrna, Lnp-s, Pf, B ivalent, 30 Mcg, IM, 12 yrs and above (Pfizer) 07/28/2022 Influenza, Whole Virus 06/17/2013,02/04/2013 Pneumococcal Conjugate Vacc, 13 Valent (Prevnar) 07/08/2015 Pneumococcal Polysaccharide PPV23 (Pneumovax) 05/16/2018,02/04/2013 Season Influenza, Quad, PF, Adjuvanted, 65+ Yrs, IM (FLUAD) 05/27/2020 Seasonal Influenza, PF, 6 mo ns & Above, IM , (Flulaval) 06/17/2018,06/18/2017 Seasonal Influenza, Quadriva lent Hd (Fluzone [...] Sign Reading Time Taken Comments Blood Pressure 122/80 05/16/2023 10:39 AM EDT Pulse 73 05/16/2023 10:39 AM EDT Temperature 36.2 C (97.2 F) 05/16/2023 10:39 AM E DT Respiratory Rate 20 05/16/2023 10:39 AM EDT Oxygen Saturation 98% 05/16/2023 10:39 AM EDT Inhaled Oxygen Concentration - - Weight 81.6 kg (180 lb) 05/16/2023 10:39 AM EDT Height - - Body Mass Index 27.37 11/13/2022 3:01 PM EST documented in this encounter Functional Status [...] this encounter Patient Instructions * Patient Instructions* Shanta Moore PA-C - 05/16/2023 11:02 AM EDT Take colace daily documented in this encounter Progress Notes * Shanta Moore PA-C - 05/16/2023 10:53 AM EDT Subjective: Marta Mixon is a 72 year old female. Chief Complaint Patient presents with Follow Up Pt. Is here today for a follow up. Pt. Is concerned about a referral she received. Pt. Would like to know if she still needs to take her blood pressure medicine even thought her blood pressures have been under control Pt. States she is having sinus issues and is curious if it is regular drainage or an infection. Pt. Was bit by a tick and donated blood last week but had labs done yesterday. HPI: 72-year-old female presents for six-month follow-up. She reports that she is feeling well overall. She has been increasing her exercise and making healthy diet choices in has intentionally lost 33 lbin the past year. She checks her blood pressure regularly at home and is usually 110s over 70s. Sheexpresses that she wishes to discontinue her amlodipine if appropriate. Patient also reports that she donated blood last and was told she has babesiosis . Lyme yesterday was negative. Anaplasma and blood borne parasite still pending. Patient reports that at the end of February she was in [place] when she noted a small black spot on herbottom which she believes was a tick. She reports significant itching at the site that lasted approximately 3 weeks. This site was then briefly painful. Symptoms have resolved at this time. She denies any fevers or aches. She does report some mild fatigue. She denies any shortness a breath. We also discussed patient's constipation. She reports that she has had constipation since her shoulder surgery last year. She does occasionally use milk of magnesia. We talked about taking Colace regularly. Colonoscopy 11/09 hx of adenomous polyps, repeat in 3-5 years Sinus Surgery Apr 17 with some relief. Patient continues to have some sinus symptoms. Patient reports her asthma is well-controlled. She reports using her rescue inhaler less than once per week. Patient is also requesting referral for Urogynecology for bladder prolapse. She has a history of bladder prolapse and surgery in the past. PMH: Patient Active Problem List Diagnosis Code [...] INTO EACH NOSTRIL EVERYDAY 48 mL 3 amLODIPine Besylate 5 MG Oral Tablet (Norvasc) TAKE 1 TABLET BY MOUTH EVERY DAY 90 Tablet 3 Azelastine HCl 137 MCG/SPRAY Nasal Solution [...] BY MOUTH EVERY DAY 90 Tablet 3 Solifenacin Succinate 10 MG Oral Tablet (VESIcare) TAKE 1 TABLET BY MOUTH EVERY DAY IN THE MORNING 90 Tablet 1 Albuterol Sulfate HFA 108 (90 Base) MCG/ACT Inhalation Aerosol Solution Inhale 2 Puffs by mouth every 6 hours as needed (as needed). 18 g 3 Diclofenac Sodium 1 % External Gel (Voltaren) Apply topically to affected area 4 g in the morning AND 4 g at noon AND 4 g in the evening AND 4 g before bedtime. Knee pain and swelling. (Patient not taking: Reported on 12/10/2022) 100 g 4 Hydrocortisone Acetate 25 MG Rectal Suppository (Anusol-HC) Administer into the rectum 2 times a day in the morning and at bedtime as needed for Hemorrhoids. Up to 2 weeks. (Patient not taking: Reported on 05/16/2023) 24 Suppository 1 Nystatin-Triamcinolone 148675-6.1 UNIT/GM-% External Cream (Mycolog) APPLY TOPICALLY TO AFFECTED AREA 2 TIMES A DAY FOR 14 DAYS. (Patient not taking: Reported on 05/16/2023) 30 g 5 Albuterol Sulfate (2.5 MG/3ML) 0.083% Inhalation Nebulization Solution (Proventil) Inhale 1 Vial via nebulizer every 4 hours as needed for Wheezing. 100 mL 3 Triamcinolone Acetonide 0.1 % Mouth/Throat Paste (Kenalog In Orabase) Apply to erythematous area ontongue twice daily (Patient not taking: Reported on 05/16/2023) 5 g 1 No current facility-administered medications for this visit. Review of patient's allergies indicates: Allergen Reactions Levofloxacin Nausea/vomiting Molds & Smuts Other (Please comment) Congestion and sore throat Poison Germania Extract Objective: BP 122/80 | Pulse 73 | Temp 36.2 C (97.2 F) (Tympanic) | Resp 20 | Wt 81.6 kg (180 lb) | SpO2 98% | BMI 27.37 kg/m | BSA 1.98 m General: alert, healthy, and no distress Neck: no carotid bruit Heart: regular rate & rhythm, no murmur, and no gallops Lungs: chest symmetric with normal AP diameter, no chest deformities noted, no chest wall tenderness, lungs clear to auscultation Abdomen: abdomen soft, non-tender, normal bowel sounds, and no masses or organomegaly Extremities: less than 2 second capillary refill, no joint deformities, effusion, or inflammation Neuro Exam: alert & oriented x 3 with fluent speech, no focal motor/sensory deficits ASSESSMENT: Bladder prolapse, female, acquired (Primary) - UROGYNECOLOGY CLINIC REFERRAL OP (FEMALE ONLY) Mild persistent asthma without complication At high risk for tick borne illness - CBC WITH WBC DIFFERENTIAL AND ANEMIA REFLEX WORKUP; Future; Expected date: 08/16/2023 Anemia, unspecified type - CBC WITH WBC DIFFERENTIAL AND ANEMIA REFLEX WORKUP; Future; Expected date: 08/16/2023 Plan: Concern for tick-borne illness. Following blood donation, patient was told she has been be cirrhosis. Dr. Balbuena has ordered Lyme, anaplasmosis, and blood parasites. Lyme is negative. We will follow-up on anaplasmosis and blood parasites. Treatment for babesiosis would be oral azithromycin (500 to 1000 mg orally per day) plus oral atovaquone (750 mg orally twice daily). x7-10 days. Regarding hypertension, patient is normotensive today in office. She is been checking her blood pressure at home and states it has been 110s over 70s. She reports intentional weight loss and is continuing to make positive lifestyle modifications. We discussed discontinuing patient's amlodipine. Shewill monitor her blood pressure closely and resume amlodipine if greater than 130/70. She verbalizes understanding of this. Anemia noted on patient's labs. This may be secondary to the babesiosis. Patient denies any dark orbloody stools. Last colonoscopy was in October. We will repeat in 3 months with reflux anemia panel. Patient has mild asthma is well-controlled with Advair and Singulair For constipation, recommend patient takes Colace Urogynecology referral placed for bladder prolapse Follow Up: Return in about 3 months (around 08/16/2023) for Return with ANDRES Moore . | For: Return with ANDRES Moore I spent a total of 40-54 minutes (exact time 50 mins) on the date of service in preparation, delivery, and documentation of the care provided to Marta Mixon excluding any time spent in the performance of separately billed services. Shanta Moore PA-C documented in this encounter Nursing Notes * Tori Lawrence, [facility] - 05/16/2023 10:48 AM EDT The patient has been properly identified by confirmation of name and date of . Chief Complaint Patient presents with Follow Up Pt. Is here today for a follow up. Pt. Is concerned about a referral she received. Pt. Would like to know if she still needs to take her blood pressure medicine even thought her blood pressures have been under control Pt. States she is having sinus issues and is curious if it is regular drainage or an infection. Pt. Was bit by a tick and donated blood last week but had labs done yesterday. documented in this encounter Plan of Treatment Upcoming Encounters Date Type Specialty Care Team Description 05/23/2023 Office Visit Gynecology Urology Tramaine Day MD [address] [place] [address] Nurse Tommy Alonso [address] [place] [address] 07/16/2023 Office Visit Ophthalmology Andres Lemos, [address] [place] [address] 08/16/2023 Office Visit Family Medicine Shanta Moore PA-C [address] [place] [phone] 09/04/2023 Office Visit Dermatology Jory Lamar PA-C [address] [place] [address] JOSSELYN Stewart [address] 10/22/2023 Office Visit Family Medicine Devyn Balbuena MD [address] [place] [address] Scheduled Orders Name Type Priority Associated Diagnoses Orde r Schedule CBC WITH WBC DIFFERENTIAL AND ANEMIA REFLEX WORKUP Lab Routine At high risk for tick borne illness Anemia, unspecified type Expected: 08/16/2023 (Approximate), Expires: 2024 Scheduled Procedures Name Priority Associated Diagnoses Date/Ti me COLONOSCOPY FLEXIBLE PROXIMAL DIAGNOSTIC Recall History of colon polyps Scheduled Referrals Name Type Priority Associated Diagnoses Order Schedule UROGYNECOLOGY CLINIC REFERRAL OP (FEMALE ONLY) Referral Within 10 days (routine) Bladder prolapse, female, acquired Ordered: 05/16/2023 Health Maintenance Due Date Last Done Comments Depression Screening, Annual for Pts 12 and Over 03/27/2023 03/27/2022 Influenza Vaccine (FLU shot) (#1) 2023 07/10/2022, 05/30/2021, 05/27/2020, Additional history exists Mammogram 10/02/2023 10/02/2022, 10/2020, 04/15/2020, Additional history exists DXA Scan 10/24/2023 10/24/2016 COLONOSCOPY-EVERY 3 YRS AGES 18-100 10/27/2025 10/27/2022, 10/27/2022, 01/27/2019, Additional history exists Lipid Panel 11/07/2027 11/07/2022, 11/16, 11/07/2018, Additional history exists DTaP,Tdap,and Td Vaccines (3 - Td or Tdap) 09/08/2031 09/08/2021, 04/04/2012 Pneumococcal Vaccine: 65+ Years Completed 05/16/2018, 07/08/2015, 02/04/2013 Zoster Vaccines Completed 11/29/2019, 05/20, 04/24/2014 COVID-19 Vaccine Completed 07/28/2022, , 08/08/2021, Additional history exists GARDASIL-HPV IMMUNIZATION SERIES Aged Out No longer eligible based on patient's age to complete this topic Hepatitis B Aged Out No longer eligi ble based on patient's age to complete this topic MENINGOCOCCAL (MENACTRA/MENVEO) Aged Out No longer eligible based on patient's age to complete this topic documented as of this encounter Medical Devices Implanted Type Area Senior Linux Unix Engineer Device Identifier Shelf Expiration Date Model / Serial / Lot Restoris Mck Fermoral Sz 5 Mm - [id number] Implanted:Qty: 1 on 03/03/2020 by Juan Hurtado MD at OR [facility] Left: Knee EL : ORTHOPAEDICS 07/23/2024 [id number] / / [id number] System Implant [employer] - [id number] Implanted:Qty: 1 on 08/07/2022 by Darwin Colon MD at OR [facility] Left: Shoulder [employer] 09/16/2025 [id number] / / [id number] documented as of this encounter Visit Diagnoses Diagnosis Bladder prolapse, female, acquired- Primary Cystocele, midline Mild persistent asthma without complication Unspecified asthma At high risk for tick borne illness Other specified conditions influencing health status Anemia, unspecified type documented in this encounter Advance [...] the patient have Health Care Power of Financial Services Specialist? No Full Code 03/03/2020 2:52 PM 03/03/2020 [...] Luis Armando Binghamkamilla Vasquez. Spouse Emergency Contact [email or web address] Care Teams Slot Machine Department Floorperson Relationship Specialty Start Date End Date Devyn Balbuena MD [address] [place] [phone] PCP - General Family Medicine 08/11/22 documented as of this encounter"
--- OUTSIDE RECORDS SUMMARY | 2023-09-14 15:19 | External Medical Summary | Summary of Care ---
Author Name Unknown Organization [facility] Address [address] [place] [address] Phone [phone] Care Team Providers Care Die Repair Name Role Phone Devyn Balbuena MD Primary Care Provider Reason for Referral * Evaluate & Treat - Unlimited Visits (Within 10 days (routine)) - Pending Review Specialty Diagnoses / Procedures Referred By Ros rivera Referred To Contact Dermatology Diagnoses Skin lesion Chyna Cowart MD [address] [place], [place] [id number] Referral ID Status Reason Start Date Expiration Date Visits Requested Visits Authorized [id number] Pending Review Specialty Services Required 06/06/2023 999 999 Question Answer Referral Priority Within 10 days (routine) Are you referring the patient for Mohs Surgery and have a current positive skin cancer biopsy result? No What is the reason for the patient referral? Rash/Skin Check/Eval of Lesion or Mole Reason for Visit * Reason Comments Acute Sinus Problem Onset: Lump R lower legs --askin g if this could be r/t her tick bite Encounter Details Date Type Department Care Team Description 06/06/2023 [place] [address] Chyna Cowart MD [address] [place] [address] Skin lesion* Allergies Active Allergy Reactions Severity Noted Date Comments Levofloxacin Nausea/vomiting Medium 10/16/2018 Molds & Smuts Other (Please comment) Medium 01/23/2019 Congestion and sore throat Poison Germania Extract 05/16/2023 documented as of this encounter (statuses as of 06/09/2023) Medications Medication Sig Dispensed Refills Start Date [...] BEFORE BEDTIME. 180 Each 3 3 Active Montelukast Sodium 10 MG Oral Tablet (Singulair)Indic ations:Mild persistent asthma, uncomplicated,Al lergic rhinitis due to pollen TAKE 1 TABLET BY MOUTH EVERY DAY 90 Tablet 3 3 Active Albuterol Sulfate HFA 108 (90 Base) MCG/ACT Inhalation Aerosol SolutionIndicati ons:Mild persistent asthma without complication Inhale 2 Puffs by mouth every 6 hours as needed (as needed). 18 g 3 3 Active Estradiol 0.1 MG/GM Vaginal Cream (Estrace) Apply pea sized amount (0.5 gm) vaginally twice a week at bedtime 42.5 g 3 3 Active Myrbetriq 50 MG Oral Tablet Extended Release 24 Hour (Mirabegron ER) Take 1 Tablet by mouth in the morning. 30 Tablet 11 3 Active Diclofenac Sodium 1 % External Gel (Voltaren) Apply topically to affected area 4 g in the morning AND 4 g at noon AND 4 g in the evening AND 4 g before bedtime. Knee pain and swelling. 100 g 4 2 06/06/20 23 Discontinued Hydrocortisone Acetate 25 MG Rectal Suppository (Anusol-HC)Indic ations:Anal pain Administer into the rectum 2 times a day in the morning and at bedtime as needed for Hemorrhoids. Up to 2 weeks. 24 Suppository 1 2 06/06/20 23 Discontinued Nystatin-Triamci nolone 711074-0.1 UNIT/GM-% External Cream (Mycolog)Indicat ions:Intertrigo APPLY TOPICALLY TO AFFECTED AREA 2 TIMES A DAY FOR 14 DAYS. 30 g 5 2 06/06/20 23 Discontinued Triamcinolone Acetonide 0.1 % Mouth/Throat Paste (Kenalog In Orabase)Indicati ons:Tongue sore Apply to erythematous area on tongue twice daily 5 g 1 3 06/06/20 23 Discontinued Atovaquone 750 MG/5ML Oral Suspension (Mepron)Indicati ons:Babesiasis Take 5 mL by mouth in the morning and 5 mL before bedtime. For 10 days. 100 mL 0 3 06/06/20 23 Discontinued documented as of this encounter (statuses as of 06/09/2023) Active Problems Problem Noted Date Chronic left [...] as of this encounter (statuses as of 06/09/2023) Resolved Problems Problem Noted Date Resolved Date ADVANCE DIRECTIVE INFORMATION 12/13/2017 Overview: Pt does have a living will Encounter for examination fo r normal comparison and control in clinical research program 09/14/2017 04/19/2020 Overview: DO NOT DELETE [facility] [place] DETECT Study: Project # [id number], Glass Finisher: Jorden Cleaning, PhD. SUMMARY: Goal: Establish test [...] contact study staff at ; after hours Glass Finisher via the [facility] lime sludge kiln operator . Please contact study team before resolving/deleting from patients problem list. Study phone number: [phone]. Diagnosis changed due to Research Module. Go to Snapshot for study details. Encounter for examination fo r normal comparison and control in clinical research program 09/14/2017 05/18/2022 Overview: DO NOT DELETE - [facility] MEGHAN Study: Project # [id number], Glass Finisher: Armando Woodard, MS, MPH. SUMMARY: Goal: Establish [...] contact study staff at ; after hours Glass Finisher via the [facility] lime sludge kiln operator . - Please contact study team before resolving/deleting from patients problem list. Study phone number: [phone]. Diagnosis changed due to Research Module. Go to Snapshot for study details. Hypertension 04/09/2017 Pneumonia 07/25/2017 Hay fever 08/10/2018 Hx of food allergy 08/10/2018 Leukocytosis 08/10/2018 Overview: work up negative Urinary, incontinence, stress female 02/10/2015 Asthma, mild persistent 04/09/20 17 documented as of this encounter (statuses as of 06/09/2023) Immunizations Name Administration Dates Next Due COVID-19 mRNA, LNP-s, No Pre serve, 2-Dose Series (Moderna) 11/18/2020,10/23/2020 COVID-19, mRNA, LNP-s, PF, B ooster, 100mcg/0.5mg (Moderna) 02/09/2022,08/08/2021 Covid-19, Mrna, Lnp-s, Pf, B ivalent, 30 Mcg, IM, 12 yrs and above (RETC) 07/28/2022 Influenza, Whole Virus 06/17/2013,02/04/2013 Pneumococcal Conjugate [...] Sign Reading Time Taken Comments Blood Pressure 130/78 06/06/2023 2:43 PM EDT Pulse 77 06/06/2023 2:43 PM EDT Temperature 36.7 C (98.1 F) 06/06/2023 2:43 PM ED T Respiratory Rate - - Oxygen Saturation 98% 06/06/2023 2:43 PM EDT Inhaled Oxygen Concentration - - Weight 83 kg (183 lb) 06/06/2023 2:43 PM EDT Height - - Body Mass Index 27.83 11/13/2022 3:01 PM EST documented in this [...] as of this encounter Progress Notes * Chyna Schilling MD - 06/06/2023 3:39 PM EDT Images from the original note were not included. History of Present Illness Marta Mioxn is a 72 year old female that presents for Acute, Sinus Problem (Onset: ), and Lump (R lower legs --asking if this could be r/t her tick bite ) Pt presents today w/ a 1.5 wk h/o itchy and painful masses on her R lower leg and b/l knees. Has been alternating tylenol and motrin w/ min relief. Had a tick bite some time ago and is wondering if it's related. No other asso'd symptoms. Physical Exam Vitals: 06/06/23 1443 Temp: 36.7 C (98.1 F) Pulse: 77 SpO2: 98% BP: 130/78 BP Readings from Last 3 Encounters: 06/06/23 130/78 05/16/23 122/80 01/11/23 122/82 Wt Readings from Last 3 Encounters: 06/06/23 83 kg (183 lb) 05/16/23 81.6 kg (180 lb) 01/11/23 85.8 kg (189 lb 3.2 oz) BMI Readings from Last 3 Encounters: 06/06/23 27.83 kg/m 05/16/23 27.37 kg/m 01/11/23 28.77 kg/m Ht Readings from Last 3 Encounters: 11/13/22 1.727 m (5' 8") 11/09/22 1.727 m (5' 8") 10/27/22 1.74 m (5' 8.5") Physical Exam Vitals and nursing note reviewed. Constitutional: General: She is not in acute distress. Appearance: Normal appearance. She is well-developed and well-groomed. HENT: Right Ear: External ear normal. Left Ear: External ear normal. Nose: Nose normal. Eyes: General: No scleral icterus. Extraocular Movements: Extraocular movements intact. Conjunctiva/sclera: Conjunctivae normal. Cardiovascular: Rate and Rhythm: Normal rate. Pulmonary: Effort: Pulmonary effort is normal. Musculoskeletal: Cervical back: Neck supple. No rigidity. Skin: Comments: Erythematous flat lesion on b/l knees Subcut <1cm masses palpated over b/l calves Neurological: Mental Status: She is alert. Psychiatric: Behavior: Behavior is cooperative. I have reviewed the following results: None Assessment and Plan Skin lesion Will refer to derm at this time ? Need for bx - DERMATOLOGY REFERRAL OP - INFLUENZA VACC, QUAD, HIGH DOSE (FLUZONE HD) Wrap-Up Follow Up: Return if symptoms worsen or fail to improve. * Joanne Rosales LPN - 06/06/2023 2:48 PM EDT The patient has been properly identified by confirmation of name and date of . Chief Complaint Patient presents with Acute Sinus Problem Onset: Lump R lower legs --asking if this could be r/t her tick bite documented in this encounter Plan of Treatment Upcoming Encounters Date Type Specialty Care Team Description 06/26/2023 Office Visit Gynecology Urology Tramaine Day MD [address] [place] [address] Nurse Tommy Alonso [address] [place] [address] 07/16/2023 Office Visit Ophthalmology Andres Lemos, [address] [place] [address] 07/17/2023 Office Visit Dermatology Chalo Sinclair PA-C [address] [place] [address] [phone] 08/16/2023 Office Visit Family Medicine Shanta Moore PA-C [address] [place] [phone] 09/04/2023 Office Visit Dermatology Jory Lamar PA-C [address] [place] [address] JOSSELYN Stewart [phone] 10/22/2023 Office Visit Family Medicine Devyn Balbuena MD [address] [place] [address] Scheduled Procedures Name Priority Associated Diagnoses Date/Ti me COLONOSCOPY FLEXIBLE PROXIMAL DIAGNOSTIC Recall History of colon polyps Scheduled Referrals Name Type Priority Associated Diagnoses Orde r Schedule DERMATOLOGY REFERRAL OP Referral Within 10 days (routine) Skin lesion Ordered: 06/06/2023 Health Maintenance Due Date Last Done Comments [...] Completed 07/28/2022, , 08/08/2021, Additional history exists Influenza Vaccine (FLU shot) Completed , 07/10/2022, [...] this encounter Medical Devices Implanted Type Area Stage Driver Device Identifier Shelf Expiration Date Model / Serial / Lot Restoris Mck Fermoral Sz 5 Mm - [id number] Implanted:Qty: 1 on 03/03/2020 by Juan Hurtado MD at [facility] Left: Knee EL : ORTHOPAEDICS 07/23/2024 [id number] / / [id number] System Implant [employer] - [id number] Implanted:Qty: 1 on 08/07/2022 by Darwin Colon MD at OR [facility] Left: Shoulder [employer] 09/16/2025 [id number] S-4 / / [id number] documented as of this encounter Visit Diagnoses Diagnosis Skin lesion- Primary Unspecified disorder of skin and subcutaneous tissue documented in this encounter Advance Directives Latest [...] the patient have Health Care Power of Construction Coordinator? No Full Code 03/03/2020 2:52 PM 03/03/2020 [...] Luis Armando Mixon Jr. Spouse Emergency Contact [email or web address] t Care Teams Die Repair Relationship Specialty Start Date End Date Devyn Balbuena MD [address] [place] [address] [phone] PCP - General Family Medicine 08/11/22 documented as of this encounter
--- OUTSIDE RECORDS SUMMARY | 2023-09-14 15:19 | External Medical Summary ---
Author Name Unknown Address Unknown Organization [id number]:[facility]ATORY [facility] [place] - [address] [place] [address] Laboratory Report Ordering Provider Test Date Status ME ZURIHTA 05/15/2023 13:35:01 Final Observation Date Value Abnormality Reference (Units ) Status Blood smear finding [Identifier] in Blood by Light microscopy 05/15/2023 13:35:01 No organisms present No organisms present Final CLINICAL INDICATION FOR SMEAR 05/15/2023 13:35:01 headaches, joint pain Final Performing Location [facility]ORY [facility] [address] [place] [address]
--- OUTSIDE RECORDS SUMMARY | 2023-09-14 15:19 | External Medical Summary ---
Author Name Unknown Address Unknown Organization [id number]:LABORATORY [facility] [place] - [address] [place] [address] Laboratory Report Ordering Provider Test Date Status JEANETTE CABRAL 05/16/2023 10:24:20 Final Observation Date Value Abnormality Reference (Units ) Status MYCODE SPECIMEN-SST 05/16/2023 10:24:20 Freezing of extracted DNA, whole blood and/or serum. Final Performing Location LABORATORY [facility] - [address] [place] [address]
--- OUTSIDE RECORDS SUMMARY | 2023-09-14 15:19 | External Medical Summary ---
Author Name Unknown Address Unknown Organization [id number]:[facility] [place] [address] [place] [address] Laboratory Report Ordering Provider Test Date Status JEANETTE CABRAL 05/16/2023 10:24:20 Final Observation Date Value Abnormality Reference (Units ) Status MYCODE SPECIMEN-SST 05/16/2023 10:24:20 Freezing of extracted DNA, whole blood and/or serum. Final Performing Location LABORATORY [facility] - [address] [place] [address]
--- OUTSIDE RECORDS SUMMARY | 2023-09-14 15:19 | External Medical Summary | Summary of Care ---
Author Name Unknown Organization [facility] Address [address] [place] [address] Phone [phone] Care Team Providers Care Environmental Programs Specialist Name Role Phone Devyn Balbuena MD Primary Care Provider [phone] Reason for Visit * Reason Comments NEW PATIENT * Evaluate & Treat - Unlimited Visits (Within 10 days (routine)) - Pending Review Specialty Diagnoses / Procedures Referred By Ros rivera Referred To Contact BO[facility] - Urogynecology / Gynecology Urology Diagnoses Bladder prolapse, female, acquired Shanta Moore PA-C [address] [place] [address] Referral ID Status Reason Start Date Expiration Date Visits Requested Visits Authorized [id number] Pending Review Specialty Services Required 05/16/[phone] Encounter Details Date Type Department Care Team Description 05/23/2023 Office Visit Urogynecology Neil Alonso [address] [place] [address] Tramaine Day MD [address] [place] [address] Nurse Tommy Alonso [address] [place] [address] Cystocele, midline*; Vaginal vault prolapse, posthysterectomy; Atrophic vaginitis; Urge incontinence Allergies Active Allergy Reactions Severity Noted Date Comments Levofloxacin Nausea/vomiting Medium 10/16/2018 Molds & Smuts Other (Please comment) Medium 01/23/2019 Congestion and sore throat Poison Germania Extract 05/16/2023 documented as of this encounter (statuses as of 05/23/2023) Medications Medication Sig Dispensed Refills Start Date [...] Patient not taking.Reported on 05/16/2023 Nystatin-Triamcin olone 219044-7.1 UNIT/GM-% External Cream (Mycolog)Indicati ons:Intertrigo APPLY TOPICALLY [...] the morning. 30 Tablet 11 3 Active Solifenacin Succinate 10 MG Oral Tablet (VESIcare)Indicat ions:Mixed stress and urge urinary incontinence TAKE 1 TABLET BY MOUTH EVERY DAY IN THE MORNING 90 Tablet 1 3 05/23/20 23 Discontinu ed(Medicat ion/Dose Changed) documented as of this encounter (statuses as of 05/23/2023) Active Problems Problem Noted Date Chronic left [...] as of this encounter (statuses as of 05/23/2023) Resolved Problems Problem Noted Date Resolved Date ADVANCE DIRECTIVE INFORMATION 12/13/2017 Overview: Pt does have a living will Encounter for examination fo r normal comparison and control in clinical research program 09/14/2017 04/19/2020 Overview: DO NOT DELETE [facility] DETECT Study: Project # [id number], Veterinary Milk Specialist: Jorden Cleaning, PhD. SUMMARY: Goal: Establish [...] contact study staff at ; after hours Veterinary Milk Specialist via the [facility] hospital tape cutting machine operator . Please contact study team before resolving/deleting from patients problem list. Study phone number: [phone]. Diagnosis changed due to Research Module. Go to Snapshot for study details. Encounter for examination fo r normal comparison and control in clinical research program 09/14/2017 05/18/2022 Overview: DO NOT DELETE - Erick Lonnie MEGHAN Study: Project # [id number], Veterinary Milk Specialist: Armando Woodard, MS, MPH. SUMMARY: Goal: [...] contact study staff at ; after hours Veterinary Milk Specialist via the [facility] hospital tape cutting machine operator . - Please contact study team before resolving/deleting from patients problem list. Study phone number: [phone]. Diagnosis changed due to Research Module. Go to Snapshot for study details. Hypertension 04/09/2017 Pneumonia 07/25/2017 Hay fever 08/10/2018 Hx of food allergy 08/10/2018 Leukocytosis 08/10/2018 Overview: work up negative Urinary, incontinence, stress female 02/10/2015 Asthma, mild persistent 04/09/20 17 documented as of this encounter (statuses as of 05/23/2023) Immunizations Name Administration Dates Next Due COVID-19 [...] difficulty seeing, even when wearing glasses? No 06/17/20 20 Do you have serious difficul ty [...] as of this encounter Progress Notes * Jorden Lentz, Medical Student - 05/23/2023 2:58 PM EDT Unless the attending has added an attestation supporting use of this note to document a billable service, the signature of the Licensed Professional on this note only acknowledges the presence of thestudent's note within the patient record and the Licensed Professional's note should be referred tofor clinical information and recommendations. Marta Mixon is a 72 year old female here for evaluation of prolapse. Referred by Shanta Moore PA-C. Marta notes that she has been having worsening of her symptoms of prolapse for the past two years with associated urge urinary incontinence. She most recently had a colpopexy in 2015, and was told atthat time that she would likely need another surgery sometime in the future. She recently had a rotator cuff repair for which she started opioid pain medication, which she thinks caused worsening constipation. She has since discontinued the medication, but her constipation has remained. She also had an anal fissure 6 months ago, which caused some hematochezia, but she was seen by her doctor for this concern and it has since resolved. In the past, she has had three surgical interventions: Colpopexy, vaginal intraperitoneal approach, October 2015 Mesh Suspension, robot, 2008 Bladder Sling Suspension, 2004 Urinary: Leakage: UUI Has leakage every day Wears pads: yes She denies a sense of incomplete bladder emptying. Prior/current treatment include: 3 x surgical interventions UTI: She states she has had two urinary tract infections in the past year. Prior/ current treatment include: antibiotics Voiding detail: Daytime frequency: every 30-60 minutes Urgency present Nocturia:4-6 times per night Hesitancy no Straining no Hematuria no (other than on urinalysis while having UTI) Postvoid dribbling no Postvoid urgency no Manual reduction no Drinks: 1 cup of green tea, 1 cup of decaf coffee Prolapse: She admits a palpable bulge. Her bulge symptoms have worsened over the last year Prior/ current treatments include 3 x surgical interventions GI: Bowel habits: constipation She denies fecal incontinence. Prior/ current treatments include: tapering and discontinuation of opioid pain medication after rotator cuff repair Gynecologic history: endometriosis, hysterectomy Medical History: Patient Active Problem List Diagnosis Code Hyperlipidemia [...] D62 Chronic left shoulder pain M25.512, G89.29 Past Medical History: Diagnosis Date Asthma, mild persistent Benign colon polyp 01/27/201902/02 tubular adenoma 11/28 TUBULAR ADENOMA Diverticulosis 12/03/2013 COLONOSCOPY DJD (degenerative joint disease) of knee Endometriosis Hay fever Hx of food allergy Hyperlipidemia Hypertension Leukocytosis work up negative Osteopenia Pneumonia Sarcoid Urinary, incontinence, stress female Patient sees Devyn Balbuena MD as her primary care provider. Surgical History: Past Surgical History: Procedure Laterality Date OLIVER HENRANDES W/ROTATOR CUFF Right 03/03/2019 ARTHROSCOPY SHOULDER ROTATOR CUFF performed by Darwin Colon MD at OR [facility] ARTHOLIVER Bello W/ROTATOR CUFF Left 08/07/2022 ARTHROSCOPY SHOULDER ROTATOR CUFF performed by Darwin Colon MD at OR [facility] ARTHROPLASTY KNEE CONDYLE/PLATEAU, MEDIAL OR LATERAL Bilateral 03/03/2020 ROBOTIC ARTHROPLASTY KNEE CONDYLE AND PLATEAU MEDIAL OR LATERAL performed by Juan Hurtado MD at OR [facility] BIOPSY OF BREAST, OPEN Breast Biopsy, Benign Disease, bilateral, benign BREAST LESION,OTHER,EXCISION COLONOSCOPY 12/03/2013 DIVERTICULOSIS & TUBULAR ADENOMA COLONOSCOPY, DIAGNOSTIC (RECTUM) 01/27/2019 adenomatous polyps, repeat 3 yrs/COLONOSCOPY FLEXIBLE PROXIMAL DIAGNOSTIC performed by Douglas Demarco MD at ENDOSCOPY [facility] COLONOSCOPY, DIAGNOSTIC (RECTUM) 10/27/2022 benign adenomatous polyp, diverticulosis, repeat 3 yrs / COLONOSCOPY FLEXIBLE PROXIMAL DIAGNOSTIC performed by Douglas Demarco MD at ENDOSCOPY [facility] COLPOPEXY,VAG,PERITONEAL APPROACH N/A 10/18/2015 COLPOPEXY VAGINAL INTRA PERITONEAL APPROACH performed by Shara Blanco MD at OR [facility] CORRECTION OF BLADDER DEFECT 2004 suspension CORRECTION OF BLADDER DEFECT 2008 mesh. robot. [place] CYSTOSCOPY N/A 06/19/2015 CYSTOURETHROSCOPY performed by Shara Blanco MD at OR [facility] CYSTOSCOPY N/A 10/18/2015 CYSTOURETHROSCOPY performed by Shara Blanco MD at OR [facility] EGD, FLEXIBLE, DIAGNOSTIC 12/03/2013 NORMAL INFORMATION mini face lift REMOVAL OF VAGINAL LESION N/A 06/19/2015 EXCISION OF VAGINAL CYST OR TUMOR performed by Shara Blanco MD at OR [facility] REMOVE TONSILS & ADENOIDS, UNDER 12 T & A, age<12 REPAIR OF VAGINA N/A 10/18/2015 COMBINED ANTEROPOSTERIOR COLPORRHAPHY performed by Shara Blanco MD at OR [facility] REPAIR RUPTURED ROTATOR CUFF, ACUTE 2011 Rotator cuff repair, right VAGINAL HYSTERECTOMY N/A 10/18/2015 VAGINAL HYSTERECTOMY performed by Shara Blanco MD at OR [facility] OB History 2 Para 2 Term 2 AB Living 2 SAB IAB Ectopic Multiple Live Births Obstetric Comments Both vaginal births, largest 8 lb 15 oz and other 8 lb 11 oz, last 1974 Weight of largest baby: 8 lbs 15 oz Vaginal deliveries: 2 C/S: 0 Allergies: Review of patient's allergies indicates: Allergen Reactions Levofloxacin Nausea/vomiting Molds & Smuts Other (Please comment) Congestion and sore throat Poison Germania Extract Active Medications: Current Outpatient Medications Medication Sig Dispense Refill Estradiol 0.1 MG/GM Vaginal Cream (Estrace) Apply pea sized amount (0.5 gm) vaginally twice a week at bedtime 42.5 g 3 Myrbetriq 50 MG Oral Tablet Extended Release 24 Hour (Mirabegron ER) Take 1 Tablet by mouth in the morning. 30 Tablet 11 B COMPLEX 100 PO TABS one daily [...] 50+ Oral Tablet Take by mouth . Diclofenac Sodium 1 % External Gel (Voltaren) [...] Reported on 05/16/2023) 24 Suppository 1 Nystatin-Triamcinolone 008433-8.1 UNIT/GM-% External Cream (Mycolog) APPLY TOPICALLY TO AFFECTED AREA 2 TIMES A DAY FOR 14 DAYS. (Patient not taking: Reported on 05/16/2023) 30 g 5 Omeprazole 20 MG Oral Capsule Delayed Release [...] 1 PUFF BEFORE BEDTIME. 180 Each 3 Triamcinolone Acetonide 0.1 % Mouth/Throat Paste (Kenalog In Orabase) Apply to erythematous area ontongue twice daily (Patient not taking: Reported on 05/16/2023) 5 g 1 Montelukast Sodium 10 MG Oral Tablet (Singulair) TAKE 1 TABLET BY MOUTH EVERY DAY 90 Tablet 3 Albuterol Sulfate HFA 108 (90 Base) MCG/ACT Inhalation Aerosol Solution Inhale 2 Puffs by mouth every 6 hours as needed (as needed). 18 g 3 No current facility-administered medications for this visit. Social History: Social History Socioeconomic History Marital status: Tobacco Use Smoking status: Never Smokeless tobacco: Never Vaping Use Vaping Use: Never used Substance and Sexual Activity Alcohol use: Not Currently Comment: wine occ Drug use: No Sexual activity: Yes Partners: Male Comment: Family History: Family History Problem Relation Age of Onset Breast Cancer Mother CONSTITUTIONAL ROS: No change in weight, No weakness and No fatigue NECK ROS: No lumps or masses, PULMONARY ROS: No recent change in breathing CARDIOVASCULAR ROS: No chest pain, No shortness of breath and No dyspnea on exertion BREAST ROS: denies GASTROINTESTINAL ROS: No abdominal pain,as per HPI GENITO-URINARY FEMALE ROS: As per HPI MSK/EXTREMITIES ROS: no joint pain no joint stiffness no back pain SKIN/INTEGUMENTARY ROS: No rash and No itching NEUROLOGICAL ROS: Normal balance No weakness PSYCHIATRIC ROS: no depression and no anxiety Twisting Operator Documentation: Provider requested 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 Alert oriented x3 HEENT: NCAT HEART: Normal peripheral pulse, edema absent, RRR THYROID: no obvious neck mass LUNG: No increased respiratory effort, CTAB, no wheezes noted ABDOMEN: Soft, NT, ND PELVIC EXAM: Ext. Gen: Normal external female genitalia, no vulvar lesions. Clitoris, labia, minor vestibular glands and urethral meatus appear normal. Urethra and bladder palpated non-tender with no masses and no expressible exudate. Cystocele and vaginal vault prolapse Vagina atrophic without lesions. Cervix: Surgically absent. CLOTH STRETCHER: negative Levator ani muscle strength 3. No tenderness elicited on palpation Rectovaginal exam: perianal area normal, anus normal Aa +1 Ba +1 C -1 GH +4 PB +3 TVL +7 Ap -2 Bp -2 The following data points/ labs were reviewed: Results for orders placed or performed in visit on 05/18/23 BABESIA MICROTI DNA, REAL-TIME PCR Result Value Ref Range Babesia Microti DNA, PCR Detected (A) Not Detected *Note: Due to a large number of results and/or encounters for the requested time period, some results have not been displayed. A complete set of results can be found in Results Review. PVR: 0 ml via bladder scan Records/ Imaging/ Results reviewed include: gynecology notes Impression: This is a 72 year old with: Cystocele Atrophic Vagina Urge Urinary Incontinence Plan: Placed a #3 ring pessary with support today. Patient was comfortable. Did not dislodge with valsalva. Start estrace vaginal cream to treat atrophy, prevent UTI's, and protect from pessary. Discussed surgical options, including sacrocolpopexy. Follow up in 4 weeks for clinic visit for pessary evaluation and possible surgical consultation. For the urge incontinence symptoms, limit bladder irritants in the diet, Kegel exercises, and stop Vesicare, start Myrbetriq. Side effects, risks, benefits, and alternatives reviewed. All questions answered. Patient was seen and case was discussed with my attending physician, Dr. Tramaine Day. --- Jorden Lentz, Medical Student [employer] 05/23/2023 I attest that I have reviewed the student note and that the components of the history, the physicalexam, and the assessment and plan documented were performed in my presence with the student where Iverified the documentation and performed (or re-performed) the exam and medical decision making. I spent a total of 45 minutes coordinating, documenting, and providing care for this patient excluding time spent in the performance of separately billed services. documented in this encounter Nursing Notes * Alissa Coats LPN - 05/23/2023 2:16 PM EDT Patient presents to the clinic for a prolapse and incontinence. Denies leaking with LCS. Will leak with urgency. Goes to the bathroom every hour during the day and wakes 4-6 times through out the night. Wears pads daily. documented in this encounter Plan of Treatment Upcoming Encounters Date Type Specialty Care Team Description 06/26/2023 Office Visit Gynecology Urology Tramaine Day MD [address] [place] [address] Nurse Tommy Alonso [address] [place] [address] 07/16/2023 Office Visit Ophthalmology Andres Lemos, [address] [place] [address] 08/16/2023 Office Visit Family Medicine Shanta Moore PA-C [address] [place] [address] 09/04/2023 Office Visit Dermatology Jory Lamar PA-C [address] [place] [address] [place] [phone] 10/22/2023 Office Visit Family Medicine Devyn Balbuena MD [address] [place] [address] Scheduled Procedures Name Priority Associated Diagnoses Date/Ti me COLONOSCOPY FLEXIBLE PROXIMAL DIAGNOSTIC Recall History of colon polyps Health Maintenance Due Date Last Done Comments Depression Screening, Annual for Pts 12 and Over 03/27/2023 03/27/2022 Influenza Vaccine (FLU shot) (#1) 2023 07/10/2022, 05/30/2021, 05/27/2020, Additional history exists Mammogram 10/02/2023 10/02/2022, 12/0 10/2020, 04/15/2020, Additional [...] this encounter Medical Devices Implanted Type Area Brinell Tester Device Identifier Shelf Expiration Date Model / Serial / Lot Restoris Mck Fermoral Sz 5 Mm - [id number] Implanted:Qty: 1 on 03/03/2020 by Juan Hurtado MD at OR [facility] Left: Knee EL : ORTHOPAEDICS 07/23/2024 [id number] / / [id number] System Implant [employer] - [id number] Implanted:Qty: 1 on 08/07/2022 by Darwin Colon MD at OR [facility] Left: Shoulder [employer] 09/16/2025 [id number] S-4 / / [id number] documented as of this encounter Visit Diagnoses Diagnosis Cystocele, midline- Primary Vaginal vault prolapse, posthysterectomy Prolapse of vaginal vault after hysterectomy Atrophic vaginitis Postmenopausal atrophic vaginitis Urge incontinence documented in this encounter Advance Directives Latest [...] the patient have Health Care Power of Residential Leasing Manager? No Full Code 03/03/2020 2:52 PM [...] Luis Armando Mixon . Spouse Emergency Contact [email or web address] Teams Environmental Programs Specialist Relationship Specialty Start Date End Date Devyn Balbuena MD [address] [place] [address] PCP - General Family Medicine 08/11/22 documented as of this encounter
--- OUTSIDE RECORDS SUMMARY | 2023-09-14 15:19 | External Medical Summary ---
Author Name Unknown Address Unknown Organization [id number]:[facility]ORY [facility] [place] [facility] [place][note 2] [address] [facility] [address] Laboratory Report Ordering Provider Test Date Status SHAMIR KEATING 05/15/2023 13:35:01 Final Observation Date Value Abnormality Reference (Units ) Status WBC, Total 05/15/2023 13:35:01 4.87 4.00-10.80 (K/uL) Final RBC 05/15/2023 13:35:01 3.91 3.85-5.15 (M/uL) Final Hemoglobin 05/15/2023 13:35:01 11.1 Below low normal 12.0-15.3 (g/dL) Final HCT 05/15/2023 13:35:01 36.6 36.0-45.2 (%) Final MCV 05/15/2023 13:35:01 93.6 81.5-97.5 (fL) Final MCH 05/15/2023 13:35:01 28.4 27.0-34.0 (pg) Final MCHC 05/15/2023 13:35:01 30.3 32.0-36.0 (g/dL) Final RDW 05/15/2023 13:35:01 14.8 11.5-15.5 (%) Final Platelets 05/15/2023 13:35:01 186 140-400 (K/uL) Final MPV 05/15/2023 13:35:01 11.1 6.6-11.1 (fL) Final Nucleated erythrocytes/100 leukocytes [Ratio] in Blood by Automated count 05/15/2023 13:35:01 0 <=0 (/100 WBCs) Final Performing Location [facility]ORY [facility] - [address] [facility] [address]
--- OUTSIDE RECORDS SUMMARY | 2023-09-14 15:19 | External Medical Summary ---
Author Name Unknown Address Unknown Organization : Laboratory Report Ordering Provider Test Date Status SHAMIR KEATING 05/15/2023 13:35:01 Final Observation Date Value Abnormality Reference (Units ) Status Anaplasma phagocytophilum DNA [Presence] in Blood by KATHY with probe detection 05/15/2023 13:35:01 Not Detected Not Detected Final This test was developed and its analytical performance
characteristics have been determined by [employer]
[place], [place]. It has
not been cleared or approved by the U.S. Food and Drug
Administration. This assay has been validated pursuant
to the CLIA regulations and is used for clinical
purposes.

Test Performed at:
[facility] [employer]
[address]
[place], [place]
Rj Gray M.D., Ph.D.,Director of Laboratories Performing Location
--- OUTSIDE RECORDS SUMMARY | 2023-09-14 15:19 | External Medical Summary ---
Author Name Unknown Address Unknown Organization K01:LABORATORY [facility] [place] - [address] [place] [address] Laboratory Report Ordering Provider Test Date Status SHAMIR KEATING 05/15/2023 13:35:01 Final Observation Date Value Abnormality Reference (Units ) Status SYNC LEUKOCYTES IN BLOOD BY AUTOMATED COUNT 05/15/2023 13:35:01 4.87 4.00-10.80 (K/uL) Final Segs 05/15/2023 13:35:01 65.6 40.0-75.0 (%) Final Lymphs % 05/15/2023 13:35:01 21.4 18.0-42.0 (%) Final Monos 05/15/2023 13:35:01 10.3 1.0-11.0 (%) Final Eosinophils 05/15/2023 13:35:01 2.1 0.0-6.0 (%) Final Basos 05/15/2023 13:35:01 0.4 0.0-2.0 (%) Final Immature Granulocyte, Percent 05/15/2023 13:35:01 0.2 0.0-2.0 (%) Final Absolute Segs 05/15/2023 13:35:01 3.20 1.80-7.70 (K/uL) Final Lymphs, absolute 05/15/2023 13:35:01 1.04 1.00-4.80 (K/ul) Final Monos, Abs 05/15/2023 13:35:01 0.50 0.00-1.10 (K/uL) Final Eos, Abs 05/15/2023 13:35:01 0.10 0.00-0.70 (K/uL) Final Basos, Abs 05/15/2023 13:35:01 0.02 0.00-0.20 (K/uL) Final Immature Granulocytes, Number 05/15/2023 13:35:01 0.01 0.00-0.20 (K/uL) Final Performing Location LABORATORY [facility] - [facility] [place] [address]
--- OUTSIDE RECORDS SUMMARY | 2023-09-14 15:19 | External Medical Summary ---
Author Name Unknown Address Unknown Organization : Laboratory Report Ordering Provider Test Date Status SHAMIR KEATING 05/18/2023 11:27:15 Final Observation Date Value Abnormality Reference (Units ) Status Babesia microti DNA [Presence] in Blood by KATHY with probe detection 05/18/2023 11:27:15 Detected Abnormal Not Detected Final This test was developed and its analytical performance
characteristics have been determined by [employer]
[place]. It has
not been cleared or approved by the U.S. Food and Drug
Administration. This assay has been validated pursuant
to the CLIA regulations and is used for clinical
purposes.

Test Performed at:
[facility][1]
[address] [facility]
[place] [address]
Rj Gray M.D., Ph.D.,Director of Laboratories Performing Location
--- OUTSIDE RECORDS SUMMARY | 2023-09-14 15:19 | External Medical Summary | Summary of Care ---
Author Name Unknown Organization [facility] Address [address] [place] [address] Phone [phone] Care Team Providers Care Wire Stretcher Name Role Phone Devyn Balbuena MD Primary Care Provider [phone] Reason for Visit * Reason Comments Outpatient Testing Encounter Details Date Type Department Care Team Description 05/18/2023 Laboratory Laboratory Patient Service [address] [address] [facility] Lock [address] [place] [address] [id number] Arthralgia, unspecified joint Allergies Active Allergy Reactions Severity Noted Date Comments Levofloxacin Nausea/vomiting Medium 10/16/2018 Molds & Smuts Other (Please comment) Medium 01/23/2019 Congestion and sore throat Poison Germania Extract 05/16/2023 documented as of this encounter (statuses as of 05/18/2023) Medications Medication Sig Dispensed Refills Start Date [...] Take by mouth . 0 Acti ve Diclofenac Sodium 1 % External Gel (Voltaren) Apply topically to affected area 4 g in the morning AND 4 g at noon AND 4 g in the evening AND 4 g before bedtime. Knee pain and swelling. 100 g 4 04/12/2022 Active Additional Information Patient not taking.Reported on 12/10/2022 Hydrocortisone Acetate 25 MG Rectal Suppository (Anusol-HC)Indicat ions:Anal pain Administer into the rectum 2 times a day in the morning and at bedtime as needed for Hemorrhoids. Up to 2 weeks. 24 Suppository 1 05/15/2022 Active Additional Information Patient not taking.Reported on 05/16/2023 Nystatin-Triamcino lone 963456-4.1 UNIT/GM-% External Cream (Mycolog)Indicatio ns:Intertrigo APPLY TOPICALLY TO AFFECTED AREA 2 TIMES A DAY FOR 14 DAYS. 30 g 5 05/19/2022 Active Additional Information Patient not taking.Reported on [...] BEFORE BEDTIME. 180 Each 3 01/22/2023 Active Triamcinolone Acetonide 0.1 % Mouth/Throat Paste (Kenalog In Orabase)Indication s:Tongue sore Apply to erythematous area on tongue twice daily 5 g 1 01/22/2023 Active Additional Information Patient not taking.Reported on 05/16/2023 Montelukast Sodium 10 MG Oral Tablet (Singulair)Indicat ions:Mild persistent asthma, uncomplicated,Denis rgic rhinitis due to pollen TAKE 1 TABLET BY MOUTH EVERY DAY 90 Tablet 3 02/22/2023 Active Solifenacin Succinate 10 MG Oral Tablet (VESIcare)Indicati ons:Mixed stress and urge urinary incontinence TAKE 1 TABLET BY MOUTH EVERY DAY IN THE MORNING 90 Tablet 1 05/03/2023 Active Albuterol Sulfate HFA 108 (90 Base) MCG/ACT Inhalation Aerosol SolutionIndication s:Mild persistent asthma without complication Inhale 2 Puffs by mouth every 6 hours as needed (as needed). 18 g 3 04/30/2023 Active documented as of this encounter (statuses as of 05/18/2023) Active Problems Problem Noted Date Chronic left [...] as of this encounter (statuses as of 05/18/2023) Resolved Problems Problem Noted Date Resolved Date ADVANCE DIRECTIVE INFORMATION 12/13/2017 Overview: Pt does have a living will Encounter for examination fo r normal comparison and control in clinical research program 09/14/2017 04/19/2020 Overview: DO NOT DELETE [facility] DETECT Study: Project # [id number], Document Management Specialist: Jorden Cleaning, PhD. SUMMARY: Goal: Establish [...] contact study staff at ; after hours Document Management Specialist via the [facility] taping machine operator . Please contact study team before resolving/deleting from patients problem list. Study phone number: [phone]. Diagnosis changed due to Research Module. Go to Snapshot for study details. Encounter for examination fo r normal comparison and control in clinical research program 09/14/2017 05/18/2022 Overview: DO NOT DELETE - [facility] DETECT Study: Project # [id number], Document Management Specialist: Armando Woodard, MS, MPH. SUMMARY: Goal: [...] contact study staff at ; after hours Document Management Specialist via the [facility] taping machine operator . - Please contact study team before resolving/deleting from patients problem list. Study phone number: [phone]. Diagnosis changed due to Research Module. Go to Snapshot for study details. Hypertension 04/09/2017 Pneumonia 07/25/2017 Hay fever 08/10/2018 Hx of food allergy 08/10/2018 Leukocytosis 08/10/2018 Overview: work up negative Urinary, incontinence, stress female 02/10/2015 Asthma, mild persistent 04/09/20 17 documented as of this encounter (statuses as of 05/18/2023) Immunizations Name Administration Dates Next Due COVID-19 mRNA, LNP-s, No Pre serve, 2-Dose Series (Moderna) 11/18/2020,10/23/2020 Covid-19 Mrna, Lnp-s, No Pre serve, Booster (Moderna) 02/09/2022,08/08/2021 Covid-19, Mrna, Lnp-s, Pf, B ivalent, 30 Mcg, IM, 12 yrs and above (PartyLine) 07/28/2022 Influenza, Whole Virus 06/17/2013,02/04/2013 Pneumococcal Conjugate [...] Day MD [address] [place] [address] Nurse Tommy Alonso [address] [place] [address] 07/16/2023 Office Visit Ophthalmology Andres Lemos, DO [address] [facility] [place] [address] 08/16/2023 Office Visit Family Medicine Shanta Moore PA-C [address] [place] [address] 09/04/2023 Office Visit Dermatology Jory Lamar PA-C [address] [place] [address] [place] [address] 10/22/2023 Office Visit Family Medicine Devyn Balbuena MD [address], [place] [phone] Pending Results Name Type Priority Associated Diagnoses Date /Time BABESIA MICROTI DNA, REAL-TIME PCR Lab Routine Arthralgia, unspecified joint 05/18/2023 11:27 AM EDT Scheduled Procedures Name Priority Associated Diagnoses Date/Ti ia COLONOSCOPY FLEXIBLE PROXIMAL DIAGNOSTIC Recall History of [...] this encounter Medical Devices Implanted Type Area Public Employment Mediator Device Identifier Shelf Expiration Date Model / Serial / Lot Restoris Mck Fermoral Sz 5 Mm - [id number] Implanted:Qty: 1 on 03/03/2020 by Juan Hurtado MD at OR [facility] Left: Knee EL : ORTHOPAEDICS 07/23/2024 [id number] / / [id number]-1 System Implant Speedbridge - [id number] Implanted:Qty: 1 on 08/07/2022 by Darwin Colon MD at OR [facility] Left: Shoulder [employer] 09/16/2025 AR-2600SB S-4 / / [id number] documented as of this encounter Visit Diagnoses Diagnosis Arthralgia, unspecified joint documented in this encounter Advance Directives Latest [...] the patient have Health Care Power of Immersion Metalcleaner? No Full Code 03/03/2020 2:52 PM 03/03/2020 [...] Luis Armando Mixon Jr. Spouse Emergency Contact [email or web address] [email or web address] Care Teams Wire Stretcher Relationship Specialty Start Date End Date [place] [address] PCP - General Family Medicine 08/11/22 documented as of this encounter
--- OUTSIDE RECORDS SUMMARY | 2023-09-14 15:19 | External Medical Summary ---
Author Name Unknown Address Unknown Organization K01:[facility] [place] [address] [place] [address] Laboratory Report Ordering Provider Test Date Status JEANETTE CABRAL 05/16/2023 10:24:20 Final Observation Date Value Abnormality Reference (Units ) Status MYCODE SPECIMEN-LAV 05/16/2023 10:24:20 Freezing of extracted DNA, whole blood and/or serum. Final Performing Location LABORATORY C - [address] [place] [address]
--- OUTSIDE RECORDS SUMMARY | 2023-09-14 15:19 | External Medical Summary | Summary of Care ---
Author Name Unknown Organization [facility] Address [address] [place] [address] Phone [phone] Care Team Providers Care Head Neck Surgeon Name Role Phone Devyn Balbuena MD Primary Care Provider [phone] Reason for Visit * Reason Comments Outpatient Testing Encounter Details Date Type Department Care Team Description 05/16/2023 Laboratory Laboratory Patient Service [address] [address] [facility] [address] [place] [address] Mixed dyslipidemia; MyCode Research Other*[id number] Allergies Active Allergy Reactions Severity Noted Date Comments Levofloxacin Nausea/vomiting Medium 10/16/2018 Molds & Smuts Other (Please comment) Medium 01/23/2019 Congestion and sore throat documented as of this encounter (statuses as [...] 2 weeks. 24 Suppository 1 05/15/2022 Active Nystatin-Triamcino lone 352488-2.1 UNIT/GM-% External Cream (Mycolog)Indicatio ns:Intertrigo APPLY TOPICALLY TO AFFECTED AREA 2 TIMES A DAY FOR 14 DAYS. 30 g 5 05/19/2022 Active Omeprazole 20 MG Oral Capsule Delayed [...] EVERY DAY 48 mL 3 09/30/2022 Active amLODIPine Besylate 5 MG Oral Tablet (Norvasc)Indicatio ns:HTN, goal below 130/80 TAKE 1 TABLET BY MOUTH EVERY DAY 90 Tablet 3 09/30/2022 Active Azelastine HCl 137 MCG/SPRAY [...] twice daily 5 g 1 01/22/2023 Active Montelukast Sodium 10 MG Oral [...] The Chronically Ill DETECT Study: Project # [id number], Director Television News: Jorden Cleaning, PhD. SUMMARY: Goal: Establish test [...] contact study staff at ; after hours Director Television News via the [facility] steam hoist operator . Please contact study team before resolving/deleting from patients problem list. Study phone number: [phone]. Diagnosis changed due to Research Module. Go to Snapshot for study details. Encounter for examination fo r normal comparison and control in clinical research program 09/14/2017 05/18/2022 Overview: DO NOT DELETE - [facility] Study: Project # [id number], Director Television News: Armando Woodard, MS, MPH. SUMMARY: Goal: Establish [...] contact study staff at ; after hours Director Television News via the [facility] steam hoist operator . - Please contact study team before resolving/deleting from patients problem list. Study phone number: [phone]. Diagnosis changed due to Research Module. Go [...] Encounters Date Type Specialty Care Team Description 05/16/2023 Office Visit Family Medicine Shanta Moore PA-C [address] [place] [address] Arrived 07/16/2023 Office Visit Ophthalmology Andres Lemos, [address] [place] [address] 09/04/2023 Office Visit Dermatology Jory Lamar PA-C [address] [place] [address] [place] [address] 10/22/2023 Office Visit Family Medicine Devyn Balbuena MD [address] [place] [address] Pending Results Name Type Priority Associated Diagnoses Date /Time LIPID PANEL WITH DIRECT LDL IF TG IS HIGH Lab Routine Mixed dyslipidemia 05/16/2023 10:24 AM EDT MYCODE INITIAL ADULT Lab Routine MyCode Research Other*[id number] 05/16/2023 10:24 AM EDT MYCODE INITIAL ADULT-PINK Lab Routine MyCode Research Other*[id number] 05/16/2023 10:24 AM EDT MYCODE SST1 Lab Routine MyCode Research Other*[id number] 05/16/2023 10:24 AM EDT MYCODE SST2 Lab Routine MyCode Research Other*[id number] 05/16/2023 10:24 AM EDT Scheduled Procedures Name Priority Associated [...] this encounter Medical Devices Implanted Type Area Angle Roll Operator Device Identifier Shelf Expiration Date Model / Serial / Lot Restoris Mck Fermoral Sz 5 Mm - [id number] Implanted:Qty: 1 on 03/03/2020 by Juan Hurtado MD at OR [facility] Left: Knee EL : ORTHOPAEDICS 07/23/2024 [id number] / / [id number]-1 System Implant [employer]bridge - [id number] Implanted:Qty: 1 on 08/07/2022 by Darwin Colon MD at OR [facility] Left: Shoulder [employer] 09/16/2025 AR-2600SB S-4 / / [id number] documented as of this encounter Visit Diagnoses Diagnosis Mixed dyslipidemia Mixed hyperlipidemia MyCode Research Other*[id number] documented in this encounter Advance Directives Latest [...] the patient have Health Care Power of Spray Gunner? No Full Code 03/03/2020 2:52 PM 03/03/2020 [...] Luis Armando Mixon Jr. Spouse Emergency Contact [email or web address] Care Teams Head Neck Surgeon Relationship Specialty Start Date End Date Devyn Balbuena MD [address] [place] [address] PCP - General Family Medicine 08/11/22 documented as of this encounter
--- OUTSIDE RECORDS SUMMARY | 2023-09-14 15:19 | External Medical Summary ---
Author Name Unknown Address Unknown Organization K01:[facility] [place] [address] [facility] [address] Laboratory Report Ordering Provider Test Date Status ZURI,[place] 05/16/2023 10:24:20 Final Observation Date Value Abnormality Reference (Units ) Status Triglyceride 05/16/2023 10:24:20 66 <=174 ( mg/dL) Final Triglyceride Reference Range s (mg/dL):
<150 Acceptable
150-174 Borderline high
175-499 High
>=500 Very high Cholesterol 05/16/2023 10:24:20 198 <200 (mg /dL) Final Total Cholesterol Reference Ranges (mg/dL):
<200 Desirable
200-239 Borderline high
>=240 High HDL 05/16/2023 10:24:20 56 >49 (mg/dL ) Final HDL Cholesterol Reference Ra nges (mg/dL):
>=60 High (Desirable)
<50 Low (Undesirable) For Females
<40 Low (Undesirable) For Males NON-HDL CHOLESTEROL 05/16/2023 10:24:20 142 <=159 (mg/dL) Final Non-HDL Cholesterol Referenc e Range (mg/dL):
<100 Target level for high risk ASCVD patient
<130 Optimal for general population
130-159 Near optimal for general population
160-189 Borderline High
190-219 High
>=220 Very High LDL, (calculated) 05/16/2023 10:24:20 129 <= 129 (mg/dL) Final LDL Cholesterol Reference Ra nges (mg/dL):
<70 Target level for high risk ASCVD patient
<100 Optimal for general population
100-129 Near optimal for general population
130-159 Borderline high
160-189 High
>=190 Very high Performing Location LAB[facility]ORY [facility] [place] - [address] [facility] [address]
--- OUTSIDE RECORDS SUMMARY | 2023-09-14 15:19 | External Medical Summary | Summary of Care ---
Author Name Unknown Organization [facility] Address [address] [place] [address] Phone [phone] Care Team Providers Care Marine Fitter Name Role Phone Devyn Balbuena MD Primary Care Provider [phone] Reason for Visit * Reason Onset Date Comments Advice 06/18/2023 Encounter Details Date Type Department Care Team Description 06/18/2023 Telephone Urogynecology [facility] [address] [place] [address] Tramaine Day MD [address] [place] [phone] Advice Allergies Active Allergy Reactions Severity Noted Date Comments Levofloxacin Nausea/vomiting Medium 10/16/2018 Molds & Smuts Other (Please comment) Medium 01/23/2019 Congestion and sore throat Poison Germania Extract 05/16/2023 documented as of this encounter (statuses as of 06/18/2023) Medications Medication Sig Dispensed Refills Start Date [...] as of this encounter (statuses as of 06/18/2023) Active Problems Problem Noted Date Chronic left [...] as of this encounter (statuses as of 06/18/2023) Resolved Problems Problem Noted Date Resolved Date ADVANCE DIRECTIVE INFORMATION 12/13/2017 Overview: Pt does have a living will Encounter for examination fo r normal comparison and control in clinical research program 09/14/2017 04/19/2020 Overview: DO NOT DELETE [facility] DETECT Study: Project # [id number], Paint Supervisor: Jorden Cleaning, PhD. SUMMARY: Goal: Establish [...] contact study staff at ; after hours Paint Supervisor via the [facility] hospital stem roller operator . Please contact study team before resolving/deleting from patients problem list. Study phone number: [phone]. Diagnosis changed due to Research Module. Go to Snapshot for study details. Encounter for examination fo r normal comparison and control in clinical research program 09/14/2017 05/18/2022 Overview: DO NOT DELETE - [facility] DETECT Study: Project # [id number], Paint Supervisor: Armando Woodard, MS, MPH. SUMMARY: Goal: [...] contact study staff at ; after hours Paint Supervisor via the [facility] hospital stem roller operator . - Please contact study team before resolving/deleting from patients problem list. Study phone number: [phone]. Diagnosis changed due to Research Module. Go to Snapshot for study details. Hypertension 04/09/2017 Pneumonia 07/25/2017 Hay fever 08/10/2018 Hx of food allergy 08/10/2018 Leukocytosis 08/10/2018 Overview: work up negative Urinary, incontinence, stress female 02/10/2015 Asthma, mild persistent 04/09/20 17 documented as of this encounter (statuses as of 06/18/2023) Immunizations Name Administration Dates Next Due COVID-19 [...] encounter Miscellaneous Notes * Telephone Encounter - Alissa Coats LPN - 06/18/2023 9:02 AM EDT Left patient aware Dr. Day wouldl like her to stop the Estrogen cream to see if the symptoms improve. Would like her to continue the Myrbetriq at this time. Patient verbalized understanding. * Telephone Encounter - Alissa Coats LPN - 06/18/2023 9:00 AM EDT Please let the patient know that the symptoms she is describing are not typical reactions, but she should stop the Estrogen Cream to see if the symptoms improve. Since she tolerated the lower dose Myrbetriq, I doubt the higher dose Myrbetriq is the cause. Thanks ----- Message ----- From: Martine Naranjo RN Sent: 06/18/2023 8:22 AM EDT To: Tramaine Day MD ----- Message from Martine Naranjo RN sent at 06/18/2023 8:22 AM EDT ----- Patient seen 05/23, switched from solifenacin to myrbetriq and started estrogen cream. She called to ask if the lumps which she describes as starting red then bruising along with swelling in both legs could be caused by the estrogen cream. She states that she had previously used Myrbetriq and does not recall swelling previously but was a lower dose also. Please advise Thank you Bridget documented in this encounter Plan of Treatment Upcoming Encounters Date Type Specialty Care Team Description 06/26/2023 Office Visit Gynecology Urology Tramaine Day MD [address] [place] [address] Nurse Tommy Alonso [address] [place] [address] 07/16/2023 Office Visit Ophthalmology Andres Lemos, [address] [place] [address] 07/17/2023 Office Visit Dermatology Chalo Sinclair PA-C [address] [place] [phone] 08/16/2023 Office Visit Family Medicine Shanta Moore PA-C [address], [place] [phone] 09/04/2023 Office Visit Dermatology Jory Lamar PA-C [address] [place] [address] [place] [phone] 10/22/2023 Office Visit Family Medicine Devyn Balbuena MD [address], [place] [phone] Scheduled Procedures Name Priority Associated Diagnoses Date/Ti [...] this encounter Medical Devices Implanted Type Area House Wirer Helper Device Identifier Shelf Expiration Date Model / Serial / Lot Restoris Mck Fermoral Sz 5 Mm - [id number] Implanted:Qty: 1 on 03/03/2020 by Juan Hurtado MD at OR [facility] Left: Knee EL : ORTHOPAEDICS 07/23/2024 [id number] / / [id number]-1 System Implant [employer]bridge - [id number] Implanted:Qty: 1 on 08/07/2022 by Darwin Colon MD at OR [facility] Left: Shoulder [employer] 09/16/2025 AR-2600SB S-4 / / [id number] documented as of this encounter Advance Directives [...] the patient have Health Care Power of Hot Metal Mixer Operator? No Full Code 03/03/2020 2:52 PM [...] Luis Armando Oral Vasquez. Spouse Emergency Contact [email or web address] Care Teams Marine Fitter Relationship Specialty Start Date End Date Devyn Balbuena MD [address] [place] [address] PCP - General Family Medicine 08/11/22 documented as of this encounter
--- OUTSIDE RECORDS SUMMARY | 2023-09-14 15:19 | External Medical Summary ---
Author Name Unknown Address Unknown Organization K01:[facility] [place] [address] [place] [address] Laboratory Report Ordering Provider Test Date Status SHAMIR KEATING 05/15/2023 13:35:01 Final Observation Date Value Abnormality Reference (Units ) Status Borrelia burgdorferi IgG and IgM [Interpretation] in Serum by Immunoassay 05/15/2023 13:35:01 Negative Negative Final Performing Location LAB[facility] [place] - [address] [place] [address]
--- OUTSIDE RECORDS SUMMARY | 2023-09-14 15:19 | External Medical Summary | Summary of Care ---
Author Name Unknown Organization [facility] Address [address] [place] [address] Phone [phone] Care Team Providers Care Decorative Engraver Name Role Phone Devyn Balbuena MD Primary Care Provider Encounter Details Date Type Department Care Team Description 05/22/2023 Orders Only Outcomes Research Department [address], [place] [id number] Beatrice Newsome CHRA MyCode Research Other*[id number] Allergies Active Allergy Reactions Severity Noted Date Comments Levofloxacin Nausea/vomiting Medium 10/16/2018 Molds & Smuts Other (Please comment) Medium 01/23/2019 Congestion and sore throat Poison Germania Extract 05/16/2023 documented as of this encounter (statuses as of 05/22/2023) Medications Medication Sig Dispensed Refills Start Date [...] Patient not taking.Reported on 05/16/2023 Nystatin-Triamcino lone 743522-1.1 UNIT/GM-% External Cream (Mycolog)Indicatio ns:Intertrigo APPLY TOPICALLY [...] as of this encounter (statuses as of 05/22/2023) Active Problems Problem Noted Date Chronic left [...] as of this encounter (statuses as of 05/22/2023) Resolved Problems Problem Noted Date Resolved Date ADVANCE DIRECTIVE INFORMATION 12/13/2017 Overview: Pt does have a living will Encounter for examination fo r normal comparison and control in clinical research program 09/14/2017 04/19/2020 Overview: DO NOT DELETE [facility] [place] DETECT Study: Project # [id number], Hydrant Setter: Jorden Cleaning, PhD. SUMMARY: Goal: Establish test [...] contact study staff at ; after hours Hydrant Setter via the [facility] hospital tire recapping machine operator . Please contact study team before resolving/deleting from patients problem list. Study phone number: [phone]. Diagnosis changed due to Research Module. Go to Snapshot for study details. Encounter for examination fo r normal comparison and control in clinical research program 09/14/2017 05/18/2022 Overview: DO NOT DELETE - [facility] Study: Project # [id number], Hydrant Setter: Armando Woodard, MS, MPH. SUMMARY: Goal: Establish [...] contact study staff at ; after hours Hydrant Setter via the [facility] tire recapping machine operator . - Please contact study team before resolving/deleting from patients problem list. Study phone number: [phone]. Diagnosis changed due to Research Module. Go to Snapshot for study details. Hypertension 04/09/2017 Pneumonia 07/25/2017 Hay fever 08/10/2018 Hx of food allergy 08/10/2018 Leukocytosis 08/10/2018 Overview: work up negative Urinary, incontinence, stress female 02/10/2015 Asthma, mild persistent 04/09/20 17 documented as of this encounter (statuses as of 05/22/2023) Immunizations Name Administration Dates Next Due COVID-19 [...] Day MD [address] [place] [address] Nurse Tommy Alonso [address] [place] [address] 07/16/2023 Office Visit Ophthalmology Andres Lemos, [address] [place] [address] 08/16/2023 Office Visit Family Medicine Shanta Moore PA-C [address] [place] [address] 09/04/2023 Office Visit Dermatology Jory Lamar PA-C [address] [place] [address] [place] [address] 10/22/2023 Office Visit Family [facility] [address] [facility] [address] Scheduled Orders Name Type Priority Associated Diagnoses Orde r Schedule MYCODE SUBSEQUENT ADULT Lab Routine MyCode Research Other*[id number] Every 6 Months for 2 Occurrences starting 05/22/2023 until 06/10/2024 Scheduled Procedures Name Priority Associated Diagnoses Date/Ti [...] this encounter Medical Devices Implanted Type Area Creative Designer Device Identifier Shelf Expiration Date Model / Serial / Lot Restoris Mck Fermoral Sz 5 Mm - [id number] Implanted:Qty: 1 on 03/03/2020 by Juan Hurtado MD at OR [facility] Left: Knee EL : ORTHOPAEDICS 07/23/2024 [id number] / / [id number]-1 System Implant Speedbridge - [id number] Implanted:Qty: 1 on 08/07/2022 by Darwin Colon MD at [facility] Left: Shoulder [employer] 09/16/2025 AR-2600SB S-4 / / [id number] documented as of this encounter Visit Diagnoses Diagnosis MyCode Research Other*[id number] documented in this encounter Advance Directives Latest [...] the patient have Health Care Power of Reimbursement Spec? No Full Code 03/03/2020 2:52 PM 03/03/2020 [...] Luis Armando Mixon Jr. Spouse Emergency Contact [email or web address] Care Teams Decorative Engraver Relationship Specialty Start Date End Date Devyn Balbuena MD [address] [place] [address] PCP - General Family Medicine 08/11/22 documented as of this encounter
--- OUTSIDE RECORDS SUMMARY | 2023-09-14 15:19 | External Medical Summary | Summary of Care ---
Author Name Unknown Organization [facility] Address [address] [place] [address] Phone [phone] Care Team Providers Care Eap Consultant Name Role Phone Devyn Balbuena MD Primary Care Provider [phone] Reason for Visit * Reason Comments Outpatient Testing Encounter Details Date Type Department Care Team Description 05/15/2023 Laboratory Laboratory Patient Service [address] [address] [facility] [address] [place] [id number] Arthralgia, unspecified joint; Generalized headaches Allergies Active Allergy Reactions Severity Noted Date Comments Levofloxacin Nausea/vomiting Medium 10/16/2018 Molds & Smuts Other (Please comment) Medium 01/23/2019 Congestion and sore throat documented as of this encounter (statuses as of 05/15/2023) Medications Medication Sig Dispensed Refills Start Date [...] 24 Suppository 1 05/15/2022 Active Nystatin-Triamcino lone 256923-4.1 UNIT/GM-% External Cream (Mycolog)Indicatio ns:Intertrigo APPLY TOPICALLY [...] as of this encounter (statuses as of 05/15/2023) Active Problems Problem Noted Date Chronic left [...] as of this encounter (statuses as of 05/15/2023) Resolved Problems Problem Noted Date Resolved Date ADVANCE DIRECTIVE INFORMATION 12/13/2017 Overview: Pt does have a living will Encounter for examination fo r normal comparison and control in clinical research program 09/14/2017 04/19/2020 Overview: DO NOT DELETE [facility] DETECT Study: Project # [id number], Ornamental Metalwork Designer: Jorden Cleaning, PhD. SUMMARY: Goal: Establish test [...] contact study staff at ; after hours Ornamental Metalwork Designer via the [facility] coater operator insulation board . Please contact study team before resolving/deleting from patients problem list. Study phone number: [phone]. Diagnosis changed due to Research Module. Go to Snapshot for study details. Encounter for examination fo r normal comparison and control in clinical research program 09/14/2017 05/18/2022 Overview: DO NOT DELETE - [facility] Study: Project # [id number], Ornamental Metalwork Designer: Armando Woodard, MS, MPH. SUMMARY: Goal: Establish [...] contact study staff at ; after hours Ornamental Metalwork Designer via the [facility] coater operator insulation board . - Please contact study team before resolving/deleting from patients problem list. Study phone number: [phone]. Diagnosis changed due to Research Module. Go to Snapshot for study details. Hypertension 04/09/2017 Pneumonia 07/25/2017 Hay fever 08/10/2018 Hx of food allergy 08/10/2018 Leukocytosis 08/10/2018 Overview: work up negative Urinary, incontinence, stress female 02/10/2015 Asthma, mild persistent 04/09/20 17 documented as of this encounter (statuses as of 05/15/2023) Immunizations Name Administration Dates Next Due COVID-19 [...] Visit Family Medicine Shanta Moore PA-C [address] [place] [address] 07/16/2023 Office Visit Ophthal[facility] Lemos[facility] [address] [facility] [address] 09/04/2023 Office Visit Dermatology Jory Lamar PA-C [address] [place] [address] [place] [phone] 10/22/2023 Office Visit Family Medicine Devyn Balbuena MD [address] [place] [address] Pending Results Name Type Priority Associated Diagnoses Date /Time BLOOD BORNE PARASITE SMEAR WITH PARASITEMIA REFLEX Lab Routine Arthralgia, unspecified joint Generalized headaches 05/15/2023 1:35 PM EDT LYME DISEASE ANTIBODY SCREEN WITH REFLEX TO CONFIRMATION Lab Routine Arthralgia, unspecified joint Generalized headaches 05/15/2023 1:35 PM EDT ANAPLASMA PHAGOCYTOPHILUM DNA, QL REAL-TIME PCR Lab Routine Arthralgia, unspecified joint Generalized headaches 05/15/2023 1:35 PM EDT BLOOD BORNE PARASITE SMEAR Lab Routine Arthralgia, unspecified joint Generalized headaches 05/15/2023 1:35 PM EDT LYME DISEASE ANTIBODY SCREEN Lab Routine Arthralgia, unspecified joint Generalized headaches 05/15/2023 1:35 PM EDT Scheduled Procedures Name Priority Associated Diagnoses [...] this encounter Medical Devices Implanted Type Area Inspector Aluminum Boat Device Identifier Shelf Expiration Date Model / Serial / Lot Restoris Mck Fermoral Sz 5 Mm - [id number] Implanted:Qty: 1 on 03/03/2020 by Juan Hurtado MD at OR [facility] Left: Knee EL : ORTHOPAEDICS 07/23/2024 [id number] / / [id number]-1 System Implant Speedbridge - [id number] Implanted:Qty: 1 on 08/07/2022 by Darwin Colon MD at OR [facility] Left: Shoulder [employer] 09/16/2025 AR-2600SB S-4 / / [id number] documented as of this encounter Visit Diagnoses Diagnosis Arthralgia, unspecified joint Generalized headaches Headache documented in this encounter Advance Directives Latest [...] the patient have Health Care Power of Elevator Operator Service? No Full Code 03/03/2020 2:52 PM 03/03/2020 [...] Luis Armando Mixon . Spouse Emergency Contact [email or web address] Care Teams Eap Consultant Relationship Specialty Start Date End Date Devyn Balbuena MD [address] [place] [address] PCP - General Family Medicine 08/11/22 documented as of this encounter
--- OUTSIDE RECORDS SUMMARY | 2023-09-14 15:20 | External Medical Summary | Summary of Care ---
Author Name Unknown Organization [facility] Address [address] [place] [address] Phone [phone] Care Team Providers Care Bucket Operator Name Role Phone Devyn Barksdale MD Primary Care Provider [phone] Reason for Visit * Reason Comments eRx-Medication Refill Encounter Details Date Type Department Care Team Description 04/28/2023 Refill Family Practice [address] [address] Devyn Barksdale MD [address] [place] [address] Mixed stress and urge urinary incontinence Allergies Active Allergy Reactions Severity Noted Date Comments Levofloxacin Nausea/vomiting Medium 10/16/2018 Molds & Smuts Other (Please comment) Medium 01/23/2019 Congestion and sore throat documented as of this encounter (statuses as of 05/03/2023) Medications Medication Sig Dispensed Refills Start Date [...] 12/10/2022 Hydrocortisone Acetate 25 MG Rectal Suppository (Anusol-HC)Indic ations:Anal pain Administer into the rectum 2 times a day in the morning and at bedtime as needed for Hemorrhoids. Up to 2 weeks. 24 Suppository 1 2 Active Nystatin-Triamci nolone 074495-6.1 UNIT/GM-% External Cream (Mycolog)Indicat ions:Intertrigo APPLY TOPICALLY TO AFFECTED AREA 2 TIMES A DAY FOR 14 DAYS. 30 g 5 2 Active Omeprazole 20 MG Oral Capsule Delayed [...] EVERY DAY 48 mL 3 3 Active amLODIPine Besylate 5 MG Oral Tablet (Norvasc)Indicat ions:HTN, goal below 130/80 TAKE 1 TABLET BY MOUTH EVERY DAY 90 Tablet 3 3 Active Azelastine HCl 137 MCG/SPRAY [...] twice daily 5 g 1 3 Active Montelukast Sodium 10 MG Oral Tablet (Singulair)Indic ations:Mild persistent asthma, uncomplicated,Al lergic rhinitis due to pollen TAKE 1 TABLET BY MOUTH EVERY DAY 90 Tablet 3 3 Active Solifenacin Succinate 10 MG Oral Tablet (VESIcare)Indica tions:Mixed stress and urge urinary incontinence TAKE 1 TABLET BY MOUTH EVERY DAY IN THE MORNING 90 Tablet 1 3 Active Solifenacin Succinate 10 MG Oral Tablet (VESIcare)Indica tions:Mixed stress and urge urinary incontinence TAKE 1 TABLET BY MOUTH EVERY DAY IN THE MORNING 90 Tablet 0 3 05/03/20 23 Discontinued documented as of this encounter (statuses as of 05/03/2023) Active Problems Problem Noted Date Chronic left [...] as of this encounter (statuses as of 05/03/2023) Resolved Problems Problem Noted Date Resolved Date ADVANCE DIRECTIVE INFORMATION 12/13/2017 Overview: Pt does have a living will Encounter for examination fo r normal comparison and control in clinical research program 09/14/2017 04/19/2020 Overview: DO NOT DELETE [facility] DETECT Study: Project # [id number], Commercial Sales Representative: Jorden Cleaning, PhD. SUMMARY: Goal: Establish [...] contact study staff at ; after hours Commercial Sales Representative via the [facility] feller machine operator . Please contact study team before resolving/deleting from patients problem list. Study phone number: [phone]. Diagnosis changed due to Research Module. Go to Snapshot for study details. Encounter for examination fo r normal comparison and control in clinical research program 09/14/2017 05/18/2022 Overview: DO NOT DELETE - [facility] Study: Project # [id number], Commercial Sales Representative: Armando Woodard, MS, MPH. SUMMARY: Goal: [...] contact study staff at ; after hours Commercial Sales Representative via the [facility] feller machine operator . - Please contact study team before resolving/deleting from patients problem list. Study phone number: [phone]. Diagnosis changed due to Research Module. Go to Snapshot for study details. Hypertension 04/09/2017 Pneumonia 07/25/2017 Hay fever 08/10/2018 Hx of food allergy 08/10/2018 Leukocytosis 08/10/2018 Overview: work up negative Urinary, incontinence, stress female 02/10/2015 Asthma, mild persistent 04/09/20 17 documented as of this encounter (statuses as of 05/03/2023) Immunizations Name Administration Dates Next Due COVID-19 mRNA, LNP-s, No Pre serve, 2-Dose Series (Moderna) 11/18/2020,10/23/2020 Covid-19 Mrna, Lnp-s, No Pre serve, Booster (Moderna) 02/09/2022,08/08/2021 Covid-19, Mrna, Lnp-s, Pf, B ivalent, 30 Mcg, IM, 12 yrs and above (Pfizer) 07/28/2022 Influenza, Whole Virus 06/17/2013,02/04/2013 Pneumococcal Conjugate Vacc, 13 Valent (Prevnar) 07/08/2015 Pneumococcal Polysaccharide PPV23 (Pneumovax) 05/16/2018,02/04/2013 Seasonal Influenza, Quadriva lent Hd (Fluzone Hd) 07/10/2022,05/30/2021 Seasonal Influenza, Quadriva lent, No Preserve, 6 Mons & Above, IM 06/17/2018,06/18/2017 Seasonal Influenza, Quadriva lent, No Preserve, Adjuvanted, 65+ Yrs, IM 05/27/2020 Seasonal Influenza, Quadriva lent, No Preserve, IM [...] Telephone Encounter - Devyn Barksdale MD - 05/03/2023 10:15 AM EDTSigned Prescriptions: Disp Refills Solifenacin Succinate 10 MG Oral Tablet (V*90 Tab*1 Sig: TAKE 1 TABLET BY MOUTH EVERY DAY IN THE MORNING Authorizing Provider: DEVYN BARKSDALE * Telephone Encounter - Interface, E-Rx Ss Inbound - 05/02/2023 11:12 AM EDT Pending Prescriptions: Disp Refills Solifenacin Succinate 10 MG Oral Tablet (V*90 Tab*1 Sig: TAKE 1 TABLET BY MOUTH EVERY DAY IN THE MORNING * Telephone Encounter - Gris Christine LPN - 05/02/2023 11:08 AM EDTPending Prescriptions: Disp Refills Solifenacin Succinate 10 MG Oral Tablet (V*90 Tab*1 Sig: TAKE 1 TABLET BY MOUTH EVERY DAY IN THE MORNING * Telephone Encounter - Gris Christine LPN - 05/02/2023 11:07 AM EDT Provider to address: med refill Reason for Call: eRx-Medication Refill Contact: Telephone Call Contact Type: Medication Outcome: Pending Prescriptions: Disp Refills Solifenacin Succinate 10 MG Oral Tablet (*90 Tab*0 Sig: TAKE 1 TABLET BY MOUTH EVERY DAY IN THE MORNING Last Visit: 01/11/2023 (in office), 12/10/2020 (telemedicine) Next Visit: 05/16/2023 Last date the medication was ordered: 03/26/23 Patient Active Problem List Diagnosis Code Hyperlipidemia [...] Value Date/Time LDL CHOLESTEROL (CALCULATED) - [facility] 138 (H) 11/07/2022 09:00 AM LDL CHOLESTEROL (CALCULATED) - [facility] 134 (H) 12/07/2020 09:28 AM LDL CHOLESTEROL (CALCULATED) - [facility] 118 [...] A1C - [facility] 5.4 02/25/2020 06:37 PM Total Time including non face to face (minutes): 5 * Telephone Encounter - Samuel Ingramruth - 04/28/2023 3:43 PM EDTPending Prescriptions: Disp Refills Solifenacin Succinate 10 MG Oral Tablet [P*90 Tab*0 Sig: TAKE 1TABLET BY MOUTH EVERY DAY IN THE MORNING documented in this encounter Plan of Treatment Upcoming Encounters Date Type Specialty Care Team Description 05/16/2023 Office Visit Family Medicine Shanta Moore PA-C [address] [place] [address] 07/16/2023 Office Visit Ophthalmology Andres Lemos, [address] [place] [address] 09/04/2023 Office Visit Dermatology Jory Lamar PA-C [address] [place] [address] [place] [address] 10/22/2023 Office Visit Family Medicine Devyn Barksdale MD [address] [place] [address] Scheduled Procedures Name Priority Associated [...] encounter Medical Devices Implanted Type Area House Fellow Device Identifier Shelf Expiration Date Model / Serial / Lot Restoris Mck Fermoral Sz 5 Mm - [id number] Implanted:Qty: 1 on 03/03/2020 by Juan Hurtado MD at OR [facility] Left: Knee EL : ORTHOPAEDICS 07/23/2024 [id number] / / 1M1R-1 System Implant Speedbridge - [id number] Implanted:Qty: 1 on 08/07/2022 by Darwin Colon MD at OR [facility] Left: Shoulder [employer] 09/16/2025 AR-2600SB S-4 / / [id number] documented as of this encounter Visit Diagnoses Diagnosis Mixed stress and urge urinary incontinence Mixed incontinence urge and stress (male)(female) documented in this encounter Advance Directives Latest [...] the patient have Health Care Power of After School Program Teacher? No Full Code 03/03/2020 2:52 PM [...] Luis Armando Binghamkamilla Vasquez. Spouse Emergency Contact [email or web address] Care Teams Bucket Operator Relationship Specialty Start Date End Date Devyn Barksdale MD [address] [place] [address] PCP - General Family Medicine 08/11/22 documented as of this encounter
--- OUTSIDE RECORDS SUMMARY | 2023-09-14 15:20 | External Medical Summary | Summary of Care ---
Author Name Unknown Organization [facility] Address [address] [place] [address] Phone [phone] Care Team Providers Care Intervention Nurse Name Role Phone Devyn Balbuena MD Primary Care Provider [phone] Encounter Details Date Type Department Care Team Description 05/10/2023 Patient Reported Data Patient Survey Ortho FORCE Allergies Active Allergy Reactions Severity Noted Date Comments Levofloxacin Nausea/vomiting Medium 10/16/2018 Molds & Smuts Other (Please comment) Medium 01/23/2019 Congestion and sore throat documented as of this encounter (statuses as of 05/10/2023) Medications Medication Sig Dispensed Refills Start Date [...] 24 Suppository 1 05/15/2022 Active Nystatin-Triamcino lone 548515-8.1 UNIT/GM-% External Cream (Mycolog)Indicatio ns:Intertrigo APPLY TOPICALLY [...] as of this encounter (statuses as of 05/10/2023) Active Problems Problem Noted Date Chronic left [...] as of this encounter (statuses as of 05/10/2023) Resolved Problems Problem Noted Date Resolved Date ADVANCE DIRECTIVE INFORMATION 12/13/2017 Overview: Pt does have a living will Encounter for examination fo r normal comparison and control in clinical research program 09/14/2017 04/19/2020 Overview: DO NOT DELETE [facility] [place] DETECT Study: Project # [id number], Chro: Jorden Cleaning, PhD. SUMMARY: Goal: Establish test [...] contact study staff at ; after hours Chro via the [facility] punching machine operator . Please contact study team before resolving/deleting from patients problem list. Study phone number: [phone]. Diagnosis changed due to Research Module. Go to Snapshot for study details. Encounter for examination fo r normal comparison and control in clinical research program 09/14/2017 05/18/2022 Overview: DO NOT DELETE - [facility] Study: Project # [id number], Chro: Armando Woodard, MS, MPH. SUMMARY: Goal: Establish [...] contact study staff at ; after hours Chro via the [facility] punching machine operator . - Please contact study team before resolving/deleting from patients problem list. Study phone number: [phone]. Diagnosis changed due to Research Module. Go to Snapshot for study details. Hypertension 04/09/2017 Pneumonia 07/25/2017 Hay fever 08/10/2018 Hx of food allergy 08/10/2018 Leukocytosis 08/10/2018 Overview: work up negative Urinary, incontinence, stress female 02/10/2015 Asthma, mild persistent 04/09/20 17 documented as of this encounter (statuses as of 05/10/2023) Immunizations Name Administration Dates Next Due COVID-19 [...] Office Visit Family Medicine Shanta Moore PA-C [address] [place] [address] 07/16/2023 Office Visit Ophthalmology Andres Lemos, DO [address] [facility] [address] 09/04/2023 Office Visit Dermatology Jory Lamar PA-C [address] [place] [address] [place] [phone] 10/22/2023 Office Visit Family Medicine Devyn Balbuena MD [address] [place] [address] Scheduled Procedures Name Priority Associated [...] this encounter Medical Devices Implanted Type Area Site Planner Device Identifier Shelf Expiration Date Model / Serial / Lot Restoris Mck Fermoral Sz 5 Mm - [id number] Implanted:Qty: 1 on 03/03/2020 by Juan Hurtado MD at OR [facility] Left: Knee EL : ORTHOPAEDICS 07/23/2024 [id number] / / 1M1R-1 System Implant Speedbridge - [id number] Implanted:Qty: 1 on 08/07/2022 by Darwin Colon MD at OR [facility] Left: Shoulder [employer] 09/16/2025 AR-2600SB S-4 / / [id number] documented as of this encounter Advance Directives [...] the patient have Health Care Power of Telephone Information Clerk? No Full Code 03/03/2020 2:52 PM 03/03/2020 [...] Luis Armando Oral Vasquez. Spouse Emergency Contact [email or web address] Care Teams Intervention Nurse Relationship Specialty Start Date End Date Devyn Balbuena MD [address] [place] [address] PCP - General Family Medicine 08/11/22 documented as of this encounter
--- OUTSIDE RECORDS SUMMARY | 2023-09-14 15:20 | External Medical Summary ---
Author Name Unknown Address Unknown Organization [id number]:LABORATORY [facility] - [address] [facility] [address] Laboratory Report Ordering Provider Test Date Status HOA MCCONNELLROSAURA 04/24/2023 10:00:02 Final <10,000 colonies/ml mixed no rmal gwyn Corrected report, previously reported as 10,000-100,000 colonies/ml Gram positive cocci
null Observation Date Value Abnormality Reference (Units ) Status Bacteria identified in Unspecified specimen by Culture 04/24/2023 10:00:02 [id number]^ESCHE RICHIA COLI Abnormal Final 10,000 to 100,000 colonies/m L Escherichia coli Performing Location LABORATORY [facility] - [address] [facility] [address] Ordering Provider Test Date Status HOA MCCONNELLROSAURA 04/24/2023 10:00:02 Final Observation Date Value Abnormality Reference (Units ) Status Ampicillin 04/24/2023 10:00:02 <=2 Susceptible Final Cefazolin 04/24/2023 10:00:02 <=4 Susceptible Final Cefepime susceptibility 04/24/2023 10:00:02 <=1 Susceptible Final Ceftriaxone suceptibility 04/24/2023 10:00:02 <=1 Susceptible Final Ciprofloxacin 04/24/2023 10:00:02 <=0.25 Susceptible Final Due to serious side effects, the FDA has advised against using Ciprofloxacin to treat uncomplicated UTIs and respiratory tract infections unless there are no alternative treatment options. Gentamicin susceptibility 04/24/2023 10:00:02 <=1 Susc eptible Final Nitrofurantoin susceptibility 04/24/2023 10:00:02 <=16 Susceptible Final Piperacillin + Tazobactamsusceptibility 04/24/2023 10:00:02 <=4 Susceptible Final TMP-SMZ susceptibility 04/24/2023 10:00:02 <=20 Suscept ible Final Test: Culture, Urine, Quanti tative
Specimen Source: Urine, Clean Catch
Specimen Type: Urine
Specimen Date: 04/24/2023 10:00 AM
Result Date: 04/27/2023 12:49 PM
Result Status: Final result
Abnormal: Yes
Resulting Lab: LABORATORY [facility]
[address]
[place] [address]

CULTURE

10,000 to 100,000 colonies/mL Escherichia coli (Abnormal)

<10,000 colonies/ml mixed normal gwyn Corrected report, previously
reported as 10,000-100,000 colonies/ml Gram positive cocci

SUSCEPTIBILITY

Escherichia coli
METHOD MICROBROTH DILUTIONS

AMPICILLIN [...] alternative treatment options.

null Performing Location LABORATORY [facility] - [address] [facility] [address]
--- OUTSIDE RECORDS SUMMARY | 2023-09-14 15:20 | External Medical Summary | Summary of Care ---
Author Name Unknown Organization [facility] Address [address] [place] [address] Phone [phone] Care Team Providers Care Admissions Advisor Name Role Phone Devyn Balbuena MD Primary Care Provider [phone] Encounter Details Date Type Department Care Team Description 04/27/2023 Telephone [facility] [address] [place] [address] Tramaine Arreguin PA-C [address] [place] [address] Allergies Active Allergy Reactions Severity Noted Date Comments Levofloxacin Nausea/vomiting Medium 10/16/2018 Molds & Smuts Other (Please comment) Medium 01/23/2019 Congestion and sore throat documented as of this encounter (statuses as of 04/27/2023) Medications Medication Sig Dispensed Refills Start Date [...] 24 Suppository 1 05/15/2022 Active Nystatin-Triamcino lone 888211-0.1 UNIT/GM-% External Cream (Mycolog)Indicatio ns:Intertrigo APPLY TOPICALLY [...] DAY IN THE MORNING 90 Tablet 0 03/26/2023 Active Nitrofurantoin Monohyd Macro 100 MG Oral Capsule (Macrobid)Indicati ons:Acute cystitis with hematuria Take 1 Capsule by mouth in the morning and 1 Capsule before bedtime. Do all this for 7 days. With food until gone. 14 Capsule 0 04/24/2023 3 Active documented as of this encounter (statuses as of 04/27/2023) Active Problems Problem Noted Date Chronic left [...] as of this encounter (statuses as of 04/27/2023) Resolved Problems Problem Noted Date Resolved Date ADVANCE DIRECTIVE INFORMATION 12/13/2017 Overview: Pt does have a living will Encounter for examination fo r normal comparison and control in clinical research program 09/14/2017 04/19/2020 Overview: DO NOT DELETE [facility] DETECT Study: Project # [id number], Case Picker: Jorden Cleaning, PhD. SUMMARY: Goal: Establish test [...] contact study staff at ; after hours Case Picker via the [facility] lapping machine set up operator . Please contact study team before resolving/deleting from patients problem list. Study phone number: [phone]. Diagnosis changed due to Research Module. Go to Snapshot for study details. Encounter for examination fo r normal comparison and control in clinical research program 09/14/2017 05/18/2022 Overview: DO NOT DELETE - [facility] Study: Project # [id number], Case Picker: Armando Woodard, MS, MPH. SUMMARY: Goal: Establish [...] contact study staff at ; after hours Case Picker via the [facility] lapping machine set up operator . - Please contact study team before resolving/deleting from patients problem list. Study phone number: [phone]. Diagnosis changed due to Research Module. Go to Snapshot for study details. Hypertension 04/09/2017 Pneumonia 07/25/2017 Hay fever 08/10/2018 Hx of food allergy 08/10/2018 Leukocytosis 08/10/2018 Overview: work up negative Urinary, incontinence, stress female 02/10/2015 Asthma, mild persistent 04/09/20 17 documented as of this encounter (statuses as of 04/27/2023) Immunizations Name Administration Dates Next Due COVID-19 [...] Office Visit Ophthalmology Andres Lemos, DO [address] [facility] [address] 09/04/2023 Office Visit Dermatology Jory Lamar PA-C [address] [place] [address] [place] [address] 10/22/2023 Office Visit Family Medicine Devyn Balbuena MD [address] [place] [phone] (work) Scheduled Procedures Name Priority Associated Diagnoses Date/Ti [...] this encounter Medical Devices Implanted Type Area Telehealth Coordinator Device Identifier Shelf Expiration Date Model / Serial / Lot Restoris Mck Fermoral Sz 5 Mm - [id number] Implanted:Qty: 1 on 03/03/2020 by Juan Hurtado MD at [facility] Left: Knee EL : ORTHOPAEDICS 07/23/2024 [id number] / / [id number] System Implant Speedbridge - [id number] Implanted:Qty: 1 on 08/07/2022 by Darwin Colon MD at OR [facility] Left: Shoulder [employer] 09/16/2025 [id number] S-4 / / [id number] documented as of this encounter Advance Directives [...] the patient have Health Care Power of Master Planner? No Full Code 03/03/2020 2:52 PM 03/03/2020 [...] Healthcare Agent Relationship Communication Luis Armando Binghamll Amilcar Spouse Emergency Contact [email or web address] Care Teams Admissions Advisor Relationship Specialty Start Date End Date Devyn Balbuena MD [address] [place] [id number] PCP - General Family Medicine 08/11/22 documented as of this encounter
--- OUTSIDE RECORDS SUMMARY | 2023-09-14 15:20 | External Medical Summary | Summary of Care ---
Author Name Unknown Organization [facility] Address [address] [place] [address] Phone [phone] Care Team Providers Care Paper Machine Back Tender Name Role Phone Devyn Balbuena MD Primary Care Provider [phone] Reason for Referral * Evaluate & Treat - Unlimited Visits (Within 3 days (urgent)) - Pending Review Specialty Diagnoses / Procedures Referred By Contact Referred To Contact CONCRETE PIPE MAKER - Urogynecology / Gynecology Urology Diagnoses Dysuria Acute cystitis with hematuria Gogo Arrington CRNP [address] [place] [address] Referral ID Status Reason Start Date Expiration Date Visits Requested Visits Authorized [id number] Pending Review Specialty Services Required 04/24/[phone] Question Answer Referral Priority Within 3 days (urgent) What condition is the patient being referred for? Recurrent UTIs/Dysuria Reason for Visit * Reason Comments Urinary Tract Infection Symptoms Encounter Details Date Type Department Care Team Description 04/24/2023 [facility]ient Care [place] [address] [address] Gogo Arrington CRNP [address] [place] [address] Acute cystitis with hematuria*; Dysuria; Yeast vaginitis Allergies Active Allergy Reactions Severity Noted Date Comments Levofloxacin Nausea/vomiting Medium 10/16/2018 Molds & Smuts Other (Please comment) Medium 01/23/2019 Congestion and sore throat documented as of this encounter (statuses as of 04/24/2023) Medications Medication Sig Dispensed Refills Start Date [...] 24 Suppository 1 2 Active Nystatin-Triamci nolone 127753-0.1 UNIT/GM-% External Cream (Mycolog)Indicat ions:Intertrigo APPLY TOPICALLY [...] IN THE MORNING 90 Tablet 0 3 Active Nitrofurantoin Monohyd Macro 100 MG Oral Capsule (Macrobid)Indica tions:Acute cystitis with hematuria Take 1 Capsule by mouth in the morning and 1 Capsule before bedtime. Do all this for 7 days. With food until gone. 14 Capsule 0 3 05/01/20 23 Active Fluconazole 150 MG Oral Tablet (Diflucan)Indica tions:Yeast vaginitis Take 1 Tablet by mouth once for 1 dose. 1 Tablet 0 3 04/24/20 23 Active predniSONE 10 MG Oral Tablet (Deltasone) Take 5 tabs for 2 days, 4 tabs for 2 days, 3 tabs for 2 days, 2 tabs for 2 days 1 tab for 2 days 30 Tablet 0 3 04/24/20 23 Discontinued documented as of this encounter (statuses as of 04/24/2023) Active Problems Problem Noted Date Chronic left [...] as of this encounter (statuses as of 04/24/2023) Resolved Problems Problem Noted Date Resolved Date ADVANCE DIRECTIVE INFORMATION 12/13/2017 Overview: Pt does have a living will Encounter for examination fo r normal comparison and control in clinical research program 09/14/2017 04/19/2020 Overview: DO NOT DELETE [facility] DETECT Study: Project # [id number], Station Detective: Jorden Cleaning, PhD. SUMMARY: Goal: Establish test [...] contact study staff at ; after hours Station Detective via the [facility] hospital sugar reprocess operator head . Please contact study team before resolving/deleting from patients problem list. Study phone number: [phone]. Diagnosis changed due to Research Module. Go to Snapshot for study details. Encounter for examination fo r normal comparison and control in clinical research program 09/14/2017 05/18/2022 Overview: DO NOT DELETE - [facility] Study: Project # [id number], Station Detective: Armando Woodard, MS, MPH. SUMMARY: Goal: Establish [...] contact study staff at ; after hours Station Detective via the [facility] hospital sugar reprocess operator head . - Please contact study team before resolving/deleting from patients problem list. Study phone number: [phone]. Diagnosis changed due to Research Module. Go to [employer] for study details. Hypertension 04/09/2017 Pneumonia 07/25/2017 Hay fever 08/10/2018 Hx of food allergy 08/10/2018 Leukocytosis 08/10/2018 Overview: work up negative Urinary, incontinence, stress female 02/10/2015 Asthma, mild persistent 04/09/20 17 documented as of this encounter (statuses as of 04/24/2023) Immunizations Name Administration Dates Next Due COVID-19 [...] Sign Reading Time Taken Comments Blood Pressure - - Pulse 69 04/24/2023 9:55 AM EDT Temperature 36.4 C (97.6 F) 04/24/2023 9:55 AM ED T Respiratory Rate 16 04/24/2023 9:55 AM EDT Oxygen Saturation 99% 04/24/2023 9:55 AM EDT Inhaled Oxygen Concentration - - [...] as of this encounter Progress Notes * ERIC Diaz - 04/24/2023 10:14 AM EDT [facility] [address] [place] [address] [email or web address] SUBJECTIVE Nursing Notes: Pilar Jones RN 04/24/23 0956 Signed Pt reports urinary frequency and dysuria starting yesterday but worse today. Did not take any AZO. Only tylenol. Marta Mixon is a 72 year old female who presents with urinary tract symptoms. Patient was accompanied by Self. HPI: Severity of Symptoms: Minimal Modifying Factors (what was done since onset of Symptoms): fluids Timing (How often does it occur): 1 days ROS: Constitutional symptoms: no fever, no weight loss, no weakness and no fatigue Pulmonary ROS: No cough, sputum, or hemoptysis, No wheezing, No shortness of breath and No recent change in breathing Cardiovascular ROS: No chest pain, No shortness of breath and No dyspnea on exertion Gastrointestional ROS: No change in bowel habits, No significant heartburn, No significant change in appetite, No nausea, vomiting, diarrhea, or constipation and Positive for suprapubic abdominal pain Urinary symptoms: DYSURIA, BURNING, FREQUENCY, URGENCY and PRESSURE Symptom duration of 1 day(s) Reports fluid intake is adequate HISTORY: Past Medical History: Diagnosis Date Asthma, mild persistent Benign colon polyp 01/27/201902/02 tubular adenoma 11/28 TUBULAR ADENOMA Diverticulosis 12/03/2013 COLONOSCOPY DJD (degenerative joint disease) of knee Endometriosis Hay fever Hx of food allergy Hyperlipidemia Hypertension Leukocytosis work up negative Osteopenia Pneumonia Sarcoid Urinary, incontinence, stress female Past Surgical History: Procedure Laterality Date ARTHOLIVER BelloW/ROTATOR CUFF Right 03/03/2019 ARTHROSCOPY SHOULDER ROTATOR CUFF performed by Darwin Colon MD at OR [facility] ARTHOLIVER BelloW/ROTATOR CUFF Left 08/07/2022 ARTHROSCOPY SHOULDER ROTATOR CUFF performed by Darwin Colon MD at OR [facility] ARTHROPLASTY KNEE CONDYLE/PLATEAU, MEDIAL OR LATERAL Bilateral 03/03/2020 ROBOTIC ARTHROPLASTY KNEE CONDYLE AND PLATEAU MEDIAL OR LATERAL performed by Juan Hurtado MD at OR [facility] BIOPSY OF BREAST, OPEN Breast Biopsy, Benign Disease, bilateral, benign BREAST LESION,OTHER,EXCISION COLONOSCOPY 12/03/2013 DIVERTICULOSIS & TUBULAR ADENOMA COLONOSCOPY, DIAGNOSTIC (RECTUM) 01/27/2019 adenomatous polyps, repeat 3 yrs/COLONOSCOPY FLEXIBLE PROXIMAL DIAGNOSTIC performed by Douglas Demarco MD at ENDOSCOPY [facility] COLONOSCOPY, DIAGNOSTIC (RECTUM) 10/27/2022 benign adenomatous polyp, diverticulosis, repeat 3 yrs / COLONOSCOPY FLEXIBLE PROXIMAL DIAGNOSTIC performed by Douglas Demarco MD at ENDOSCOPY [facility] COLPOPEXY,VAG,PERITONEAL APPROACH N/A 10/18/2015 COLPOPEXY VAGINAL INTRA PERITONEAL APPROACH performed by Shara Blanco MD at OR [facility] CORRECTION OF BLADDER DEFECT 2004 suspension CORRECTION OF BLADDER DEFECT 2008 mesh. robot. [place] CYSTOSCOPY N/A 06/19/2015 CYSTOURETHROSCOPY performed by Shara Blanco MD at OR [facility] CYSTOSCOPY N/A 10/18/2015 CYSTOURETHROSCOPY performed by Shara Blanco MD at OR [facility] EGD, FLEXIBLE, DIAGNOSTIC 12/03/2013 NORMAL INFORMATION mini face lift REMOVAL OF VAGINAL LESION N/A 06/19/2015 EXCISION OF VAGINAL CYST OR TUMOR performed by Shara Blanco MD at OR [facility] REMOVE TONSILS & ADENOIDS, UNDER 12 T & A, age<12 REPAIR OF VAGINA N/A 10/18/2015 COMBINED ANTEROPOSTERIOR COLPORRHAPHY performed by Shara Blanco MD at OR [facility] REPAIR RUPTURED ROTATOR CUFF, ACUTE 2012 Rotator cuff repair, right VAGINAL HYSTERECTOMY N/A 10/18/2015 VAGINAL HYSTERECTOMY performed by Shara Blanco MD at OR [facility] Social History Socioeconomic History Marital status: Spouse [...] Resource Strain: Not on file Food Insecurity: Not on file Transportation Needs: Not on file Physical Activity: Not on file Stress: Not on file Social Connections: Not on file Intimate Partner Violence: Not on file Housing Stability: Not on file Current Outpatient Medications Medication Sig Dispense Refill Nitrofurantoin Monohyd Macro 100 MG Oral Capsule (Macrobid) Take 1 Capsule by mouth in the morning and 1 Capsule before bedtime. Do all this for 7 days. With food until gone. 14 Capsule 0 Fluconazole 150 MG Oral Tablet (Diflucan) Take 1 Tablet by mouth once for 1 dose. 1 Tablet 0 B COMPLEX 100 PO TABS one daily MAGNESIUM 250 MG PO TABS one daily VITAMIN D3 1000 UNITS PO CAPS one daily CALCIUM 1000 + D 1000-800 MG-UNIT PO TABS one tablet daily FIBER COMPLETE PO TABS Take by mouth 1 Tablet daily . Inulin (METAMUCIL CLEAR & NATURAL) powder Take by mouth daily. (Patient not taking: Reported on 01/03/2023) Coenzyme Q10 10 MG Capsule Take 1 [...] Up to 2 weeks. 24 Suppository 1 Nystatin-Triamcinolone 026395-1.1 UNIT/GM-% External Cream (Mycolog) APPLY TOPICALLY TO AFFECTED AREA 2 TIMES A DAY FOR 14 DAYS. 30 g 5 Omeprazole 20 MG Oral Capsule Delayed Release (PriLOSEC) TAKE 1 CAPSULE BY MOUTH DAILY 1 HOUR BEFORE THE FIRST MEAL OF THE DAY 90 Capsule 3 Cetirizine HCl 10 MG Oral Capsule Take by mouth 1 Capsule in the morning. 90 Capsule 2 Fluticasone Propionate 50 MCG/ACT Nasal Suspension (Flonase) SPRAY 2 SPRAYS INTO EACH NOSTRIL EVERY DAY 48 mL 3 amLODIPine Besylate 5 MG [...] (Kenalog In Orabase) Apply to erythematous area on tongue twice daily 5 g 1 Montelukast Sodium 10 MG Oral Tablet (Singulair) TAKE 1 TABLET BY MOUTH EVERY DAY 90 Tablet 3 Solifenacin Succinate 10 MG Oral Tablet (VESIcare) TAKE 1 TABLET BY MOUTH EVERY DAY IN THE MORNING 90 Tablet 0 No current facility-administered medications for this visit. Review of patient's allergies indicates: Allergen Reactions Levofloxacin Nausea/vomiting Molds & Smuts Other (Please comment) Congestion and sore throat Family History Problem Relation Age of Onset Breast Cancer Mother Results for orders placed or performed in visit on 04/24/23 URINALYSIS, POINT OF CARE (ENTER/EDIT) Result Value Ref Range Color, Urine Dark Yellow Yellow or Light Yellow Clarity, Urine Cloudy Clear Glucose, Urine Negative Negative mg/dL Bilirubin, Urine Negative Negative Ketone, Urine Negative Negative mg/dL Specific Pinon, Urine 1.025 1.003 - 1.030 Blood, Urine Large Negative pH, Urine 6.0 5.0 - 7.5 units Protein, Urine 100 Negative mg/dL Urobilinogen, Urine 0.2 0.2 - 1.0 mg/dL Nitrite, Urine Negative Negative Esterase, Urine Large Negative *Note: Due to a large number of results and/or encounters for the requested time period, some results have not been displayed. A complete set of results can be found in Results Review. OBJECTIVE: Pulse 69 | Temp 36.4 C (97.6 F) | Resp 16 | SpO2 99% Wt Readings from Last 1 Encounters: 01/11/23 85.8 kg (189 lb 3.2 oz) General appearance: awake, alert, no apparent distress Abdominal Exam: back: NEG CVA tenderness and abd: +suprapubic tenderness to palpation, no R/R/G, +BS Respiratory: clear to auscultation, no rhonchi, no wheezes and no crackles Heart: regular rate, regular rhythm, no murmurs and no rubs Assessment/Plan: Acute cystitis with hematuria (Primary) - Nitrofurantoin Monohyd Macro 100 MG Oral Capsule (Macrobid); Take 1 Capsule by mouth in the morning and 1 Capsule before bedtime. Do all this for 7 days. With food until gone. - UROGYNECOLOGY CLINIC REFERRAL OP (FEMALE ONLY) Dysuria - URINALYSIS, POINT OF CARE (ENTER/EDIT) - CULTURE, URINE, QUANTITATIVE - UROGYNECOLOGY CLINIC REFERRAL OP (FEMALE ONLY) Yeast vaginitis - Fluconazole 150 MG Oral Tablet (Diflucan); Take 1 Tablet by mouth once for 1 dose. Reviewed medication regime and side effects Reviewed dipstick results with patient in office- will send culture Encourage fluid intake Practice good hand hygiene OTC tylenol/ibuprofen per box instructions for comfort Monitor for signs/symptoms of infection: fever, n/v, SOB, CP, sweats, chills Uro-Musician Instrumental referral placed Patient stated understanding and had no other issues at this time Follow Up: Return if symptoms worsen or fail to improve. ERIC Diaz [facility], [place] [address] documented in this encounter Nursing Notes * Pilar Jones RN - 04/24/2023 9:54 AM EDT Pt reports urinary frequency and dysuria starting yesterday but worse today. Did not take any AZO. Only tylenol. documented in this encounter Plan of Treatment Upcoming Encounters Date Type Specialty Care Team Description 07/16/2023 Office Visit Ophthalmology Andres Lemos, DO [address] [place] [address] 09/04/2023 Office Visit Dermatology Jory Lamar PA-C [address] [place] [address] [place] [phone] 10/22/2023 Office Visit Family Medicine Devyn Balbuena MD [address] [place] [address] [place] [address] Pending Results Name Type Priority Associated Diagnoses Date /Time CULTURE, URINE, QUANTITATIVE Lab Routine Dysuria 04/24/2023 10:00 AM EDT Scheduled Procedures Name Priority Associated Diagnoses Date/Ti mi COLONOSCOPY FLEXIBLE PROXIMAL DIAGNOSTIC Recall History of colon polyps Scheduled Referrals Name Type Priority Associated Diagnoses Order Schedule UROGYNECOLOGY CLINIC REFERRAL OP (FEMALE ONLY) Referral Within 3 days (urgent) Dysuria Acute cystitis with hematuria Ordered: 04/24/2023 Health Maintenance Due Date Last Done Comments Depression Screening, Annual for Pts 12 and Over 03/27/2023 03/27/2022 Influenza Vaccine (FLU shot) (#1) 2023 07/10/2022, 05/30/2021, 05/27/2020, Additional history exists Mammogram 10/02/2023 10/02/2022, 1210/2020, 04/15/2020, Additional history [...] this encounter Medical Devices Implanted Type Area Inventory Control Planner Device Identifier Shelf Expiration Date Model / Serial / Lot Restoris Mck Fermoral Sz 5 Mm - [id number] Implanted:Qty: 1 on 03/03/2020 by Juan Hurtado MD at OR [facility] Left: Knee EL : ORTHOPAEDICS 07/23/2024 [id number] / / [id number] System Implant [employer]bridge - [id number] Implanted:Qty: 1 on 08/07/2022 by Darwin Colon MD at OR [facility] Left: Shoulder [employer] 09/16/2025 AR-[id number] S-4 / / [id number] documented as of this encounter Procedures Procedure Name Priority Date/Time Associated Diagnosis Comments URINALYSIS, POINT OF CARE (ENTER/EDIT) Routine 04/24/2023 9:55 AM EDT Dysuria documented in this encounter Results * (ABNORMAL) URINALYSIS, POINT OF CARE (ENTER/EDIT) (04/24/2023 9:55 AM EDT) Color, Urine Dark Yellow Yellow or Light Yellow Clarity, Urine Cloudy Clear Glucose, Urine Negative Negative mg/dL Bilirubin, Urine Negative Negative Ketone, Urine Negative Negative mg/dL Specific Pinon, Urine 1.025 1.003 - 1.030 Blood, Urine Large Negative pH, Urine 6.0 5.0 - 7.5 units Protein, Urine 100 Negative mg/dL Urobilinogen, Urine 0.2 0.2 - 1.0 mg/dL Nitrite, Urine Negative Negative Esterase, Urine Large Negative Urine 04/24/2023 9:55 AM EDT [facility] POINT OF CARE TEST [...] the patient have Health Care Power of Regional Sales Representative? No Full Code 03/03/2020 2:52 PM 03/03/2020 [...] Luis Armando Mixon Jr. Spouse Emergency Contact [email or web address] Care Teams Paper Machine Back Tender Relationship Specialty Start Date End Date [place] [address] PCP - General Family Medicine 08/11/22 documented as of this encounter"
--- OUTSIDE RECORDS SUMMARY | 2023-09-14 15:20 | External Medical Summary | Summary of Care ---
Author Name Unknown Organization [facility] Address [address] [place] [address] Phone [phone] Care Team Providers Care Oil Burner Repairer Name Role Phone Devyn Barksdale MD Primary Care Provider [phone] Reason for Visit * Reason Comments eRx-Medication Refill Encounter Details Date Type Department Care Team Description 03/23/[address] [id number] Sarah Vazquez MD [address] [place] [address] Mixed stress and urge urinary incontinence Allergies Active Allergy Reactions Severity Noted Date Comments Levofloxacin Nausea/vomiting Medium 10/16/2018 Molds & Smuts Other (Please comment) Medium 01/23/2019 Congestion and sore throat documented as of this encounter (statuses as of 03/26/2023) Medications Medication Sig Dispensed Refills Start Date [...] 24 Suppository 1 2 Active Nystatin-Triamci nolone 946213-6.1 UNIT/GM-% External Cream (Mycolog)Indicat ions:Intertrigo APPLY TOPICALLY [...] for Wheezing. 100 mL 3 3 Active predniSONE 10 MG Oral Tablet (Deltasone) Take 5 tabs for 2 days, 4 tabs for 2 days, 3 tabs for 2 days, 2 tabs for 2 days 1 tab for 2 days 30 Tablet 0 3 Active Famotidine 20 MG Oral Tablet [...] THE MORNING 90 Tablet 0 3 Active Solifenacin Succinate 10 MG Oral Tablet (VESIcare)Indica tions:Mixed stress and urge urinary incontinence TAKE 1 TABLET BY MOUTH EVERY DAY IN THE MORNING 90 Tablet 1 2 03/23/20 23 Discontinued documented as of this encounter (statuses as of 03/26/2023) Active Problems Problem Noted Date Chronic left [...] as of this encounter (statuses as of 03/26/2023) Resolved Problems Problem Noted Date Resolved Date ADVANCE DIRECTIVE INFORMATION 12/13/2017 Overview: Pt does have a living will Encounter for examination fo r normal comparison and control in clinical research program 09/14/2017 04/19/2020 Overview: DO NOT DELETE [facility] DETECT Study: Project # [id number], Gaming Table Operator: Jorden Cleaning, PhD. SUMMARY: Goal: Establish [...] contact study staff at ; after hours Gaming Table Operator via the [facility] radial drill press operator . Please contact study team before resolving/deleting from patients problem list. Study phone number: [phone]. Diagnosis changed due to Research Module. Go to Snapshot for study details. Encounter for examination fo r normal comparison and control in clinical research program 09/14/2017 05/18/2022 Overview: DO NOT DELETE - [facility] DETECT Study: Project # [id number], Gaming Table Operator: Armando Woodard, MS, MPH. SUMMARY: Goal: [...] contact study staff at ; after hours Gaming Table Operator via the [facility] radial drill press operator . - Please contact study team before resolving/deleting from patients problem list. Study phone number: [phone]. Diagnosis changed due to Research Module. Go to Snapshot for study details. Hypertension 04/09/2017 Pneumonia 07/25/2017 Hay fever 08/10/2018 Hx of food allergy 08/10/2018 Leukocytosis 08/10/2018 Overview: work up negative Urinary, incontinence, stress female 02/10/2015 Asthma, mild persistent 04/09/20 17 documented as of this encounter (statuses as of 03/26/2023) Immunizations Name Administration Dates Next Due COVID-19 [...] Telephone Encounter - Devyn Barksdale MD - 03/26/2023 1:40 PM EDTSigned Prescriptions: Disp Refills Solifenacin Succinate 10 MG Oral Tablet (V*90 Tab*0 Sig: TAKE 1 TABLET BY MOUTH EVERY DAY IN THE MORNING Authorizing Provider: DEVYN BARKSDALE * Telephone Encounter - Joanne Rosales LPN - 03/23/2023 3:01 PM EDTPending Prescriptions: Disp Refills Solifenacin Succinate 10 MG Oral Tablet (V*90 Tab*0 Sig: TAKE 1 TABLET BY MOUTH EVERY DAY IN THE MORNING * Telephone Encounter - Joanne Rosales LPN - 03/23/2023 3:01 PM EDT Next OV: 05/07/2023 Last OV: 01/11/2023 (in office), 12/10/2020 (telemedicine) Pending Prescriptions: Disp Refills Solifenacin Succinate 10 MG Oral Tablet (*90 Tab*0 Sig: TAKE 1 TABLET BY MOUTH EVERY DAY IN THE MORNING * Telephone Encounter - Samuel Amado - 03/23/2023 4:18 AM EDTPending Prescriptions: Disp Refills Solifenacin Succinate 10 MG Oral Tablet [P*90 Tab*1 Sig: TAKE 1TABLET BY MOUTH EVERY DAY IN THE MORNING documented in this encounter Plan of Treatment Upcoming Encounters Date Type Specialty Care Team Description 05/07/2023 Office Visit Family Medicine Devyn Barksdale MD [address] [place] [address] 07/16/2023 Office Visit Ophthalmology Andres Lemos, DO [address] [place] [address] JOSSELYN ASHRAF [id number] 09/04/2023 Office Visit Dermatology Jory Lamar PA-C [address] [place] [address] [address] [phone] Scheduled Procedures Name Priority Associated Diagnoses Date/Ti [...] this encounter Medical Devices Implanted Type Area Photo Engraver Device Identifier Shelf Expiration Date Model / Serial / Lot Restordustin Franklink Fermoral Sz 5 Mm - [id number] Implanted:Qty: 1 on 03/03/2020 by Juan Hurtado MD at OR [facility] Left: Knee EL : ORTHOPAEDICS 07/23/2024 [id number] / / [id number]-1 System Implant Speedbridge - [id number] Implanted:Qty: 1 on 08/07/2022 by Darwin Colon MD at OR [facility] Left: Shoulder [employer] 09/16/2025 [id number] S-4 / / [id number] documented as of this encounter Visit Diagnoses [...] the patient have Health Care Power of Explosive Specialist? No Full Code 03/03/2020 2:52 PM [...] Luis Armando Mixon Jr. Spouse Emergency Contact [email or web address] Care Teams Oil Burner Repairer Relationship Specialty Start Date End Date Devyn Barksdale MD [address] [place] [phone] PCP - General Family Medicine 08/11/22 documented as of this encounter
--- OUTSIDE RECORDS SUMMARY | 2023-09-14 15:20 | External Medical Summary | Summary of Care ---
Author Name Unknown Organization [facility] Address [address] [place] [address] Phone [phone] Care Team Providers Care Estate Administrator Name Role Phone Devyn Barksdale MD Primary Care Provider [phone] Reason for Visit * Reason Onset Date Comments Fax Refill 04/30/2023 Encounter Details Date Type Department Care Team Description 04/30/[address] [address] Devyn Barksdale MD [address] [place] [address] Fax Refill Allergies Active Allergy Reactions Severity Noted Date Comments Levofloxacin Nausea/vomiting Medium 10/16/2018 Molds & Smuts Other (Please comment) Medium 01/23/2019 Congestion and sore throat documented as of this encounter (statuses as of 05/02/2023) Medications Medication Sig Dispensed Refills Start Date [...] 2 weeks. 24 Suppository 1 05/15/2022 Active Nystatin-Triamcin olone 738365-2.1 UNIT/GM-% External Cream (Mycolog)Indicati ons:Intertrigo APPLY TOPICALLY [...] Active Montelukast Sodium 10 MG Oral Tablet (Singulair)Indica tions:Mild persistent asthma, uncomplicated,All ergic rhinitis due to pollen TAKE 1 TABLET BY MOUTH EVERY DAY 90 Tablet 3 02/22/2023 Active Solifenacin Succinate 10 MG Oral Tablet (VESIcare)Indicat ions:Mixed stress and urge urinary incontinence TAKE 1 TABLET BY MOUTH EVERY DAY IN THE MORNING 90 Tablet 0 03/26/2023 Active Albuterol Sulfate HFA 108 (90 Base) MCG/ACT Inhalation Aerosol SolutionIndicatio ns:Mild persistent asthma without complication Inhale 2 Puffs by mouth every 6 hours as needed (as needed). 18 g 3 04/30/2023 Active Nitrofurantoin Monohyd Macro 100 MG Oral Capsule (Macrobid)Indicat ions:Acute cystitis with hematuria Take 1 Capsule by mouth in the morning and 1 Capsule before bedtime. Do all this for 7 days. With food until gone. 14 Capsule 0 04/24/2023 3 documented as of this encounter (statuses as of 05/02/2023) Active Problems Problem Noted Date Chronic left [...] as of this encounter (statuses as of 05/02/2023) Resolved Problems Problem Noted Date Resolved Date ADVANCE DIRECTIVE INFORMATION 12/13/2017 Overview: Pt does have a living will Encounter for examination fo r normal comparison and control in clinical research program 09/14/2017 04/19/2020 Overview: DO NOT DELETE [facility] DETECT Study: Project # [id number], Cleater: Jorden Cleaning, PhD. SUMMARY: Goal: Establish test [...] contact study staff at ; after hours Cleater via the [facility] profile mill operator tape control . Please contact study team before resolving/deleting from patients problem list. Study phone number: [phone]. Diagnosis changed due to Research Module. Go to Snapshot for study details. Encounter for examination fo r normal comparison and control in clinical research program 09/14/2017 05/18/2022 Overview: DO NOT DELETE - [facility] DETECT Study: Project # [id number], Cleater: Armando Woodard, MS, MPH. SUMMARY: Goal: Establish [...] contact study staff at ; after hours Cleater via the [facility] profile mill operator tape control . - Please contact study team before resolving/deleting from patients problem list. Study phone number: [phone]. Diagnosis changed due to Research Module. Go to Snapshot for study details. Hypertension 04/09/2017 Pneumonia 07/25/2017 Hay fever 08/10/2018 Hx of food allergy 08/10/2018 Leukocytosis 08/10/2018 Overview: work up negative Urinary, incontinence, stress female 02/10/2015 Asthma, mild persistent 04/09/20 17 documented as of this encounter (statuses as of 05/02/2023) Immunizations Name Administration Dates Next Due COVID-19 [...] Telephone Encounter - Julianna Estrada LPN - 05/02/2023 10:37 AM EDT Closing encounter. * Telephone Encounter - Devyn Barksdale MD - 04/30/2023 5:17 PM EDT Please call in the prescription to patients pharmacy and close encounter. Signed Prescriptions: Disp Refills Albuterol Sulfate HFA 108 (90 Base) MCG/AC*18 g 3 Sig: Inhale 2 Puffs by mouth every 6 hours as needed (as needed). Authorizing Provider: DEVYN BARKSDALE * Telephone Encounter - Martin Yeh - 04/30/2023 2:02 PM EDT Refill request received from [facility] via fax on 04/30/2023. The requested medication: Albuterol HFA (Ventolin) INH documented in this encounter Plan of Treatment Upcoming Encounters Date Type Specialty Care Team Description 05/16/2023 Office Visit Family Medicine Shanta Moore PA-C [address] [place] [phone] 07/16/2023 Office Visit Ophthalmology Andres Lemos, [address] [place] [phone] 09/04/2023 Office Visit Dermatology Jory Lamar PA-C [address] [place] [address] [place] [address] [phone] 10/22/2023 Office Visit Family Medicine Devyn Barksdale MD [address] [place] [address] Scheduled Procedures Name Priority Associated Diagnoses Date/Ti me COLONOSCOPY FLEXIBLE PROXIMAL DIAGNOSTIC Recall History of colon polyps Health Maintenance Due Date Last Done Comments Depression Screening, Annual for Pts 12 and Over 03/27/2023 03/27/2022 Influenza Vaccine (FLU shot) (#1) 2023 07/10/2022, 05/30/2021, 05/27/2020, Additional history exists Mammogram 10/02/2023 10/02/2022, 120 10/2020, 04/15/2020, Additional history exists DXA Scan [...] this encounter Medical Devices Implanted Type Area Life Skills Consultant Device Identifier Shelf Expiration Date Model / Serial / Lot Restoris Mck Fermoral Sz 5 Mm - [id number] Implanted:Qty: 1 on 03/03/2020 by Juan Hurtado MD at OR [facility] Left: Knee EL : ORTHOPAEDICS 07/23/2024 [id number] / / [id number]-1 System Implant [employer]bridge - [id number] Implanted:Qty: 1 on 08/07/2022 by Darwin Colon MD at OR [facility] Left: Shoulder [employer] 09/16/2025 [id number] S-4 / / [id number] documented as of this encounter Visit Diagnoses Diagnosis Mild persistent asthma without complication Unspecified asthma documented in this encounter Advance Directives Latest [...] the patient have Health Care Power of Color Finisher? No Full Code 03/03/2020 2:52 PM 03/03/2020 [...] Luis Armando Mixon Jr. Spouse Emergency Contact [email or web address] Care Teams Estate Administrator Relationship Specialty Start Date End Date Devyn Barksdale MD [address] [place] [phone] PCP - General Family Medicine 08/11/22 documented as of this encounter
[2023-09-14] MEDS ORDERED: oxyCODONE/ACETAMINOPHEN 5mg/325mg TAB PO PRN ×2 (15:43)
--- NOTE | 2023-09-14 15:50 | Operative Report ---
Post Operative Report Pre & Post Diagnosis Operation Date: 09/14/23 11:40 Pre-Op Diagnosis: Cystocele & Vaginal Vault Prolapse, Post-Hysterectomy Post-Op Diagnosis: Cystocele & Vaginal Vault Prolapse, Post-Hysterectomy I identified the patient and participated in the time-out.: Yes Procedure Operation Date: 09/14/23 11:40 Actual Procedures p Robotic Assisted Laparoscopic Sacrocolpopexy, Bilateral Salpingo-oopherectomy, Cystoscopy(Not Applicable) - Tramaine Day MD Surgeon Tramaine Day MD Casting Technician Nilda Tang PA-C Estimated Blood Loss 70 Findings Consistent with Post-Op Diagnosis pelvic adhesions of the sigmoid to the vaginal cuff. Atrophic normal appearing ovaries bilaterally. Normal cystoscopy with excellent efflux of ureters bilaterally. Fluids Crystalloid Specimens bilateral tubes and ovaries Drains David catheter Anesthesia Type General Complications none Disposition Accompanied Patient To Recovery: Yes Disposition: Recovery Room Indications symptomatic vaginal vault prolapse and cystocele Description of Procedure After Marta Mixon was correctly identified to person and procedure, I reviewed the indications, risks, benefits, and alternatives to the surgery today. All questions answered. Informed consent signed. Patient was taken to the operating room and given general anesthesia per anesthesia service. She was then placed in Ki stirrups and was prepped and draped in the usual fashion. Time out was performed. A David catheter was placed into the bladder. A bulb syringe was attached to a Hulka tenaculum and was placed into the vagina. Attention was focused to the abdomen. An umbilical 8 mm incision was made and a robotic 8 mm trocar with Optiview was placed through the incision and advanced into the abdominal cavity under visualization. Abdomen was insufflated. On the left two 8 mm trocars were placed and on the right, two 8 mm trocars were placed under direct visualization. Patient was placed in Trendelenburg position. The robot was docked. Atrophic and normal appearing ovaries were identified bilaterally. Ureters were identified bilaterally. The IP ligament were vessel sealed and transected bilaterally. The ovaries and tubes were dissected free, removed from the abdomen, and sent to pathology as specimen. Excellent hemostasis was confirmed. The adhesions of the sigmoid to the vaginal cuff were sharply lysed without difficulty. The bladder was dissected off the anterior vaginal wall for approximately 6 cm distally. The posterior peritoneum and rectum was dissected off the posterior vaginal wall for 4 cm distally. The sigmoid was retracted to the left. The ureters were well visualized. A peritoneal incision was made from the sacrum to the right corner of the vaginal cuff. The Y shaped mesh was then secured to the anterior and posterior vaginal frederick with interrupted sutures of CV3 Ruidoso-fidelina sutures. With appropriate tensioning, the tail of the Y mesh was secured to the anterior longitudinal ligament with three interrupted sutures of CV-0 Ruidoso-fidelina. The excess mesh was trimmed and removed. The peritoneal incisiion was then closed over the mesh with 2-0 V-lock suture in a running fashion. The pelvis was irrigated and found to have exc ellent hemostasis. The robot was undocked, the trocars were removed. The skin incisions were closed with 4-0 Monocryl in a subcuticular fashion and dressed with surgical glue. The bulb syringe was removed from the vagina and found to have excellent support. Cystoscopy was performed with 300 ml of irrigation fluid. Systematic inspection of the bladder dome, trigone, and urethra revealed no lesions. Excellent efflux of ureters were demonstrated bilaterally. The bladder was drained and the David catheter was replaced. All sponge, lap, and needle counts were correct. The patient was awakened, extubated, and sent to recover room in good condition. I attest to the content of the Intraoperative Record and any orders documented therein. Any exceptions are noted below. No qualified resident available. Advanced practitioner, Nilda Tang PA-C, was necessary for the procedure. She provided patient positioning, draping, retraction, irrigation, robotic docking, instrument exchange, and wound closure.
[2023-09-14] MEDS: fentaNYL citrate PF 100 MCG/2 ML VIAL IV PRN ×2 (16:14→16:19)
--- NOTE | 2023-09-14 17:28 | Anesthesiology Progress Note ---
Date of Service September 14, 2023 Anesthesia Post Procedure Vital Signs Vital Signs: Temp Pulse Pulse Resp BP Pulse Ox O2 Del Method 09/14/23 17:10 36.3 C L 78 14 150/74 H 94 Room Air 09/14/23 16:55 73 13 141/73 H 93 Room Air 09/14/23 16:40 76 13 138/73 94 Room Air 09/14/23 16:30 36.1 C L 73 13 133/75 94 Room Air 09/14/23 16:20 75 12 132/73 96 Room Air 09/14/23 16:10 74 14 138/81 95 Room Air 09/14/23 16:00 70 14 142/82 H 100 Room Air 09/14/23 15:58 71 16 154/85 H 98 Oxymask 09/14/23 15:48 36.3 C L 71 12 178/90 H 98 Oxymask 09/14/23 10:43 36.7 C 69 18 156/79 H 97 Room Air O2 Flow Rate 09/14/23 17:10 0 09/14/23 16:55 0 09/14/23 16:40 0 09/14/23 16:30 0 09/14/23 16:20 0 09/14/23 16:10 0 09/14/23 16:00 0 09/14/23 15:58 4 09/14/23 15:48 6 09/14/23 10:43 Pain Intensity Abdomen: Pain Intensity: 4 Transfer of Care Handoff Completed per policy Notes Mental Status: alert / awake / arousable and participated in evaluation Patient Amnestic to Procedure: Yes Nausea / Vomiting: adequately controlled Pain: adequately controlled Airway Patency, RR, SpO2: stable & adequate BP & HR: stable & adequate Hydration State: stable & adequate Anesthetic Complications: no major complications apparent and Pt Satisfied with anesthetic care
[2023-09-14] MEDS: IBUPROFEN 600 MG TAB PO PRN (17:55)
[2023-09-15] MEDS: IBUPROFEN 600 MG TAB PO PRN ×3 (00:04→13:13)
[2023-09-15] MEDS ORDERED: PANTOprazole 40 MG TAB PO SCH (07:00)
[2023-09-15 07:18] LABS: Basophils # (auto) 0.03 K/uL (0.00-0.20); Basophils % (auto) 0.3 %; Eosinophils # (auto) 0.01 K/uL (0.00-0.50); Eosinophils % (auto) 0.1 %; Hematocrit (blood only) 35.3 % (37.0-47.0); Hemoglobin 11.6 g/dl (12.0-16.0); Immature Granulocytes # (auto) 0.03 K/uL (0.01-0.20); Immature Granulocytes % (auto) 0.3 %; Lymphocytes # (auto) 1.52 K/uL (1.20-3.40); Lymphocytes % (auto) 13.8 %; Mean Corpuscular Hemoglobin 27.4 pg (25.0-34.0); Mean Corpuscular Hgb Conc 32.9 g/dL (32.0-36.0); Mean Corpuscular Volume 83.5 fL (80.0-100.0); Monocytes # (auto) 1.34 K/uL (0.11-0.59); Monocytes % (auto) 12.1 %; Neutrophils % (auto) 73.4 %; Platelet Count 184 K/uL (130-400); RDW Coefficient of Variation 16.7 % (11.5-14.5); RDW Standard Deviation 50.4 fL (36.4-46.3); Red Blood Count 4.23 M/uL (4.20-5.40); White Blood Count 11.03 K/ul (4.8-10.8)
[2023-09-15 07:33] LABS: BUN Creatinine Ratio 19.8 (10-20); Calcium 8.5 mg/dl (8.6-10.3); Creatinine Clr Calc Pharmacy 67.7 ml/min; Est GFR (African American) 78.2 ml/min; Est GFR (Non-African American) 67.5 ml/min; Potassium 4.3 mmol/L (3.5-5.1)
== END 2023-09-15 13:33 | disposition home or self-care (01) | DRG 743 ==
LOC: ASU 10:12 → INTOOBSV 15:43 → 4E1 15:43